=== PATIENT | female | born 1995 | race American Indian/Alaskan Native ===

== ENCOUNTER 2016-10-18 06:47 | Emergency (ER) | payer OTHER ==
[2016-10-18 06:55] VITALS: BP 125/91
[2016-10-18 07:12] LABS: Basophils % (Auto) 1.3 % (0.0-1.8); Eosinophils % (Auto) 11.8 % (0.0-4.3); Mean Corpuscular HGB Conc 30 % (30-34); Platelet Count 324 K/mm3 (140-440); Red Blood Count 5.03 M/mm3 (3.65-5.03); White Blood Count 10.3 K/mm3 (4.5-11.0)
[2016-10-18 07:21] LABS: Hematocrit 31.5 % (30.3-42.9); Hemoglobin 9.4 gm/dl (10.1-14.3); Mean Corpuscular Hemoglobin 19 pg (28-32); Mean Corpuscular Volume 63 fl (79-97); Red Cell Distribution Width 20.7 % (13.2-15.2)
[2016-10-18 07:29] LABS: Alanine Aminotransferase 13 units/L (7-56); Albumin 4.1 g/dL (3.9-5); Albumin/Globulin Ratio 1.2 %; Alkaline Phosphatase 55 units/L (35-129); Anion Gap 18 mmol/L; Bilirubin,Total 0.2 mg/dL (0.1-1.2); Blood Urea Nitrogen 9 mg/dL (7-17); Calcium 8.9 mg/dL (8.4-10.2); Carbon Dioxide 24 mmol/L (22-30); Chloride 98.8 mmol/L (98-107); Glucose 86 mg/dL (65-100); Potassium 3.8 mmol/L (3.6-5.0); Sodium 137 mmol/L (137-145); Total Protein 7.5 g/dL (6.3-8.2)
--- NOTE | 2016-10-20 15:37 | ED Elopement Review ---
ED Pt Elopement review - Results review Lab results: Laboratory Tests 10/18/16 10/18/16 06:59 07:04 WBC 10.3 RBC 5.03 Hgb 9.4 L Hct 31.5 MCV 63 L MCH 19 L MCHC 30 RDW 20.7 H Plt Count 324 Lymph % (Auto) 25.1 [place] % (Auto) 10.9 H Eos % (Auto) 11.8 H Baso % (Auto) 1.3 Lymph # 2.6 [place] # 1.1 H Eos # 1.2 H Baso # 0.1 Seg Neutrophils % 50.9 Seg Neutrophils # 5.3 Sodium 137 Potassium 3.8 Chloride 98.8 Carbon Dioxide 24 Anion Gap 18 BUN 9 Creatinine 0.5 L Estimated GFR > 60 BUN/Creatinine Ratio 18.00 Glucose 86 Calcium 8.9 Total Bilirubin 0.2 AST 22 ALT 13 Alkaline Phosphatase 55 Total Protein 7.5 Albumin 4.1 Albumin/Globulin Ratio 1.2 - Call Back decision Pt Call Back Decision: No action required
== END 2016-10-18 12:45 | disposition left against medical advice (07) ==
LOC: ED 06:47
DX: R10.9 Unspecified abdominal pain (principal); Z53.21 Procedure and treatment not carried out due to patient leaving prior to being seen by health care provider
CPT/HCPCS: 36415; 80053; 85025

== ENCOUNTER 2016-10-23 13:57 | Emergency (ER) | payer SELFPAY ==
[2016-10-23 14:04] VITALS: BP 129/71
[2016-10-23] MEDS ORDERED: DUONEB 0.5 MG-3 MG/3 ML SOLN IH ONE (15:13)
[2016-10-23] MEDS ORDERED: DECADRON IM ONE (15:14)
--- NOTE | 2016-10-23 15:18 | Emergency Department Report ---
Chief Complaint: Adult Asthma Stated Complaint: ASTHMA,SOB Time Seen by Provider: 10/23/16 15:11 - HPI History of Present Illness: 21-year-old female with history of asthma states that her asthma flared up last night. Patient tried albuterol inhaler without relief. Positive for chest tightness and also complaining of right upper flank pain. Denies chest pain, abdominal pain, fever, chills, nausea, vomiting, urinary symptoms. - ROS Review of Systems: Per HPI - Exam Vital Signs: Vital Signs 10/23/16 14:02 Temperature 98.8 F Pulse Rate 97 H Respiratory 18 Rate Blood Pressure 129/71 O2 Sat by Pulse 100 Oximetry Physical Exam: General: 21-year-old female in mild to moderate distress. Well-developed, well- nourished. CV: Regular rate and rhythm. Lungs: Positive for wheezing bilaterally. Abdomen: No tenderness to palpation. Negative for CVA tenderness bilaterally. MSE screening note: Focused history and physical exam performed. Due to findings the following was ordered: ED Disposition for MSE Condition: Stable
--- NOTE | 2016-10-24 10:45 | XRay Report ---
CHEST TWO VIEWS: 10/23/16 13:57:00 CLINICAL: Shortness of breath. COMPARISON: 07/29/16 FINDINGS: Normal heart and pulmonary vasculature. The lungs are mildly hyperexpanded and clear. The bones and soft tissues are normal. IMPRESSION: Mild pulmonary hyperinflation but otherwise normal.
--- NOTE | 2016-10-28 15:44 | ED Elopement Review ---
ED Pt Elopement review - Call Back decision Pt Call Back Decision: No action required
== END 2016-10-23 15:15 | disposition left against medical advice (07) ==
LOC: ED 13:57
DX: R07.89 Other chest pain (principal); R10.11 Right upper quadrant pain; J45.909 Unspecified asthma, uncomplicated; Z53.21 Procedure and treatment not carried out due to patient leaving prior to being seen by health care provider
CPT/HCPCS: 71020; 94640

== ENCOUNTER 2016-11-08 06:30 | Emergency (ER) | payer OTHER ==
[2016-11-08] MEDS ORDERED: DUONEB 0.5 MG-3 MG/3 ML SOLN IH ONE (06:41)
[2016-11-08] MEDS ORDERED: ATROVENT IH ONE (08:38)
[2016-11-08] MEDS ORDERED: PROVENTIL IH ONE (08:38)
--- NOTE | 2016-11-08 10:08 | XRay Report ---
CHEST 2 VIEWS INDICATION: Wheezing, coughing. COMPARISON: 10/23/2016. FINDINGS: PA and lateral chest radiographs demonstrate normal cardiomediastinal silhouette. Clear lungs. Intact bones. CONCLUSION: No acute disease in the chest. Thank you for the opportunity to participate in this patient's care.
[2016-11-08] MEDS ORDERED: DELTASONE PO ONE (10:22)
--- NOTE | 2016-11-08 10:38 | Emergency Department Report ---
ED Asthma HPI - General Chief Complaint: Adult Asthma Stated Complaint: ASTHMA Time Seen by Provider: 11/08/16 10:12 Source: patient Mode of arrival: Ambulatory Limitations: No Limitations - History of Present Illness Initial Comments: 21-year-old female with past medical history of asthma presents to the hospital complains of asthma exacerbation. Wheezing shortness breath or last night. Dry cough reported. Patient was out of her albuterol nebulizers treatments and inhaler. Dyspnea worse with exertion. Patient denies pain, fever, leg edema, calf tenderness, or history of intubations. PMD: None. - Related Data Previous Rx's Medication Instructions Recorded Last Taken Type ALBUTEROL Inhaler [ProAir HFA 2 puff IH QID PRN #1 inhalation 11/08/16 Unknown Rx Inhaler] ALBUTEROL NEB's [Proventil 0.083% 2.5 mg IH TID PRN #1 box 11/08/16 Unknown Rx NEBS] Prednisone [predniSONE 10 mg 10 mg PO .TAPER #1 tab.ds.pk 11/08/16 Unknown Rx (6-Day Pack, 21 Tabs)] Allergies Allergy/AdvReac Type Severity Reaction Status Date / Time No Known Allergies Allergy Verified 08/19/16 22:15 ED Review of Systems ROS: Stated complaint: ASTHMA Other details as noted in HPI Comment: All other systems reviewed and negative Other: Constitutional: No fevers chills Eyes: No eye pain visual changes ENT: No ear pain or throat pain Neck: Denies pain Respiratory: As per HPI Cardiovascular: Denies chest pain, palpitations, syncope GI: Denies abdominal pain, nausea, vomiting, diarrhea : Denies dysuria Musculoskeletal: Denies back pain, joint swelling Skin: Denies rash, lesions, erythema Neurologic: Denies headache, numbness, weakness Psychiatric: Denies suicidal ideation, hallucinations ED Past Medical Hx - Past Medical History Previous Medical History?: Yes Hx Hypertension: No Hx Heart Attack/AMI: No Hx Congestive Heart Failure: No Hx Diabetes: No Hx Deep Vein Thrombosis: No Hx Renal Disease: No Hx Sickle Cell Disease: No Hx Seizures: No Hx Asthma: Yes Hx COPD: No Hx HIV: No Additional medical history: Vaginal delivery 12-06-2015 - Surgical History Past Surgical History?: No - Social History Smoking Status: Current Some Day Smoker - Medications Home Medications: Home Medications Medication Instructions Recorded Confirmed Last Taken Type ALBUTEROL Inhaler [ProAir HFA 2 puff IH QID PRN #1 inhalation 11/08/16 Unknown Rx Inhaler] ALBUTEROL NEB's [Proventil 0.083% 2.5 mg IH TID PRN #1 box 11/08/16 Unknown Rx NEBS] Prednisone [predniSONE 10 mg 10 mg PO .TAPER #1 tab.ds.pk 11/08/16 Unknown Rx (6-Day Pack, 21 Tabs)] ED Physical Exam - General Limitations: No Limitations - Other Other exam information: General: No limitations, patient is alert in no acute distress Head exam: Atraumatic, normocephalic Eyes exam: Normal appearance, pupils equal reactive to light, extraocular movements intact ENT: Moist mucous membrane, normal oropharynx Neck exam: Normal inspection, full range of motion, no meningismus nontender Respiratory exam: Clear to auscultation bilateral, no wheezes, rales, crackles Cardiovascular: Normal rate and rhythm, normal heart sounds Abdomen: Soft, nondistended, and nontender, with normal bowel sounds, no rebound, or guarding Extremity: Full range of motion normal inspection no deformity Back: Normal Inspection, full range of motion, no tenderness Neurologic: Alert, oriented x3, cranial nerves intact, no motor or sensory deficit Psychiatric: normal affect, normal mood Skin: Warm, dry, intact ED Course Vital Signs 11/08/16 11/08/16 11/08/16 06:37 07:07 07:17 Temperature 98.2 F Pulse Rate 100 H Pulse Rate [ 100 H 102 H Bilateral Upper Lobe] Respiratory 28 H Rate Respiratory 20 18 Rate [Bilateral Upper Lobe] Blood Pressure 106/77 O2 Sat by Pulse 98 Oximetry 11/08/16 11/08/16 11/08/16 08:44 08:57 09:13 Temperature Pulse Rate Pulse Rate [ 102 H 100 H Bilateral Upper Lobe] Respiratory 20 Rate Respiratory 18 18 Rate [Bilateral Upper Lobe] Blood Pressure O2 Sat by Pulse Oximetry - Reevaluation(s) Reevaluation #1: 11/08/16 10:35 Patient received nebulized treatments prior to my evaluation with improvement in symptoms. ED Medical Decision Making - Radiology Data Radiology results: report reviewed (chest x-ray: No acute finding) - Medical Decision Making Plan discharge patient home with for acute asthma exacerbation and refill of bronchial dilators - Differential Diagnosis bronchitis, asthma, pneumonia Critical Care Time: No Critical care attestation.: If time is entered above; I have spent that time in minutes in the direct care of this critically ill patient, excluding procedure time. ED Disposition Clinical Impression: Asthma exacerbation Disposition: DISCHARGED TO HOME OR SELFCARE Is pt being admited?: No Does the pt Need Aspirin: No Condition: Stable Instructions: Asthma (ED) Additional Instructions: Take the medication as prescribed, return if symptoms worsen. Prescriptions: ALBUTEROL Inhaler [ProAir HFA Inhaler] 2 puff IH QID PRN #1 inhalation PRN Reason: Wheezing ALBUTEROL NEB's [Proventil 0.083% NEBS] 2.5 mg IH TID PRN #1 box PRN Reason: Wheezing Prednisone [predniSONE 10 mg (6-Day Pack, 21 Tabs)] 10 mg PO .TAPER #1 tab.ds.pk Referrals: [facility] [Provider Group] - 3-5 Days Time of Disposition: 10:39
[2016-11-08 11:00] VITALS: BP 133/73
== END 2016-11-08 11:00 | disposition home or self-care (01) ==
LOC: ED 06:30
DX: J45.901 Unspecified asthma with (acute) exacerbation (principal); Z72.0 Tobacco use
CPT/HCPCS: 71020; 94640; 99283; J7512

== ENCOUNTER 2016-11-13 22:06 | Emergency (ER) | payer OTHER ==
[2016-11-13 23:08] VITALS: BP 109/71
[2016-11-13] MEDS ORDERED: TYLENOL ONE (23:16)
[2016-11-13] MEDS ORDERED: TYLENOL PO ONE (23:18)
[2016-11-14] LABS: Basophils % (Auto) 0.9 % (0.0-1.8); Eosinophils % (Auto) 0.1 % (0.0-4.3); Mean Corpuscular HGB Conc 31 % (30-34); Platelet Count 361 K/mm3 (140-440); Red Blood Count 5.93 M/mm3 (3.65-5.03); White Blood Count 10.6 K/mm3 (4.5-11.0)
[2016-11-14 00:02] LABS: Hematocrit 36.1 % (30.3-42.9); Mean Corpuscular Hemoglobin 19 pg (28-32); Mean Corpuscular Volume 61 fl (79-97)
[2016-11-14 00:23] LABS: Alanine Aminotransferase 24 units/L (7-56); Albumin 4.2 g/dL (3.9-5); Albumin/Globulin Ratio 1.3 %; Alkaline Phosphatase 67 units/L (35-129); Anion Gap 20 mmol/L; Bilirubin,Total 0.3 mg/dL (0.1-1.2); Blood Urea Nitrogen 7 mg/dL (7-17); Calcium 8.7 mg/dL (8.4-10.2); Carbon Dioxide 27 mmol/L (22-30); Chloride 92.9 mmol/L (98-107); Glucose 111 mg/dL (65-100); Potassium 3.4 mmol/L (3.6-5.0); Sodium 136 mmol/L (137-145); Total Protein 7.5 g/dL (6.3-8.2)
--- NOTE | 2016-11-14 03:31 | Emergency Department Report ---
HPI - General Chief Complaint: Fever Time Seen by Provider: 11/14/16 02:34 - HPI HPI: This is a 21-year-old Af[place] female presents emergency Department with complaint of a one-day history of a subjective fever, nausea with 1 episode of vomiting, productive cough, and some body aches. Patient tried some Tylenol Cold and flu for symptoms that any relief. She has a past medical history of asthma. She does not have a primary care doctor. No recent travel. Her 11- month-old son is currently here with similar symptoms. ED Past Medical Hx - Past Medical History Previous Medical History?: Yes Hx Hypertension: No Hx Heart Attack/AMI: No Hx Congestive Heart Failure: No Hx Diabetes: No Hx Deep Vein Thrombosis: No Hx Renal Disease: No Hx Sickle Cell Disease: No Hx Seizures: No Hx Asthma: Yes Hx COPD: No Hx HIV: No Additional medical history: Vaginal delivery 12-06-2015 - Surgical History Past Surgical History?: No - Social History Smoking Status: Never Smoker - Medications Home Medications: Home Medications Medication Instructions Recorded Confirmed Last Taken Type ALBUTEROL Inhaler [ProAir HFA 2 puff IH QID PRN #1 inhalation 11/08/16 Unknown Rx Inhaler] ALBUTEROL NEB's [Proventil 0.083% 2.5 mg IH TID PRN #1 box 11/08/16 Unknown Rx NEBS] Prednisone [predniSONE 10 mg 10 mg PO .TAPER #1 tab.ds.pk 11/08/16 Unknown Rx (6-Day Pack, 21 Tabs)] ED Review of Systems ROS: Stated complaint: FEVER Other details as noted in HPI Comment: All other systems reviewed and negative Constitutional: chills, fever Eyes: denies: eye pain, eye discharge, vision change ENT: denies: ear pain, throat pain Respiratory: cough. denies: shortness of breath Cardiovascular: denies: chest pain, palpitations Gastrointestinal: nausea, vomiting Genitourinary: denies: urgency, dysuria, discharge Musculoskeletal: myalgia. denies: joint swelling Skin: denies: rash, lesions Neurological: denies: headache, weakness, paresthesias Physical Exam - Physical Exam Vital Signs: Vital Signs 11/13/16 11/14/16 23:06 02:04 Temperature 99.1 F 98.1 F Pulse Rate 134 H 60 Respiratory 20 Rate Blood Pressure 109/71 O2 Sat by Pulse 95 Oximetry Physical Exam: GENERAL: The patient is well-developed well-nourished. HEENT: Normocephalic. Atraumatic. Extraocular motions are intact. Patient has moist mucous membranes. Pupils equal reactive to light bilaterally. Oropharynx is clear without tonsillar hypertrophy, erythema or exudates. NECK: Supple. Trachea is midline. CHEST/LUNGS: Clear to auscultation. There is no respiratory distress noted. HEART/CARDIOVASCULAR: Regular. There is no tachycardia. There is no gallop rub or murmur. ABDOMEN: Abdomen is soft, nontender. Patient has normal bowel sounds. There is no abdominal distention. SKIN: There is no rash. There is no edema. There is no diaphoresis. NEURO: The patient is awake, alert, and oriented. The patient is cooperative. The patient has no focal neurologic deficits. The patient has normal speech. MUSCULOSKELETAL: There is no tenderness or deformity. There is no limitation range of motion. There is no evidence of acute injury. ED Course Vital Signs 11/13/16 11/14/16 23:06 02:04 Temperature 99.1 F 98.1 F Pulse Rate 134 H 60 Respiratory 20 Rate Blood Pressure 109/71 O2 Sat by Pulse 95 Oximetry ED Medical Decision Making - Lab Data Result diagrams: 11/13/16 23:41 11/13/16 23:41 - Radiology Data Radiology results: image reviewed interpreted by me: Chest x-ray did not show any acute process. Heart is normal shape and size. No effusions. No pneumothorax. No signs of pneumonia seen. - Medical Decision Making This is a 21-year-old female presents to the emergency department with a one- day history of subjective fever, cough, nausea with one episode of vomiting and some body aches. Patient did present with tachycardia but no fever but she had taken some ibuprofen prior to presentation. Patient had labs that did not show any signs of leukocytosis, electrolyte abnormalities, renal insufficiency or glucose abnormalities. A chest x-ray was done to look for pneumonia that did not show any pneumonia, CHF or pneumothorax. On physical exam the patient does not have an oropharynx that appears consistent with strep pharyngitis and the patient does not complain of any sore throat. This all appears most consistent with a viral syndrome. Unfortunately we are unable to check anyone for influenza at this time. However the patient had resolution of her tachycardia and some improvement of her symptoms with one dose of Tylenol. She was given instructions on how to treat fever and body aches with Tylenol and ibuprofen and she was given multiple referrals for primary care. She is encouraged to return to the emergency department with any worsening of her symptoms or any acute distress. - Differential Diagnosis influenza, URI, pneumonia, strep pharyngitis Critical Care Time: No Critical care attestation.: If time is entered above; I have spent that time in minutes in the direct care of this critically ill patient, excluding procedure time. ED Disposition Clinical Impression: Viral syndrome, Cough Nausea and vomiting Qualifiers: Vomiting type: unspecified Vomiting Intractability: non-intractable Qualified Code(s): R11.2 - Nausea with vomiting, unspecified Disposition: DISCHARGED TO HOME OR SELFCARE Is pt being admited?: No Condition: Stable Instructions: Upper Respiratory Infection (ED), Acute Nausea and Vomiting (ED) , Viral Syndrome (ED) Additional Instructions: Please follow-up with a primary care doctor in the next few days. Return to the emergency department with any worsening of your symptoms or any acute distress. You can use Tylenol every 4 hours and ibuprofen every 6 hours, using weight-based dosing, as needed for fever or discomfort. Referrals: PRIMARY MD RADHA [Primary Care Provider] - 3-5 Days DAYDAY MEADOWS MD [Staff Physician] - 3-5 Days [facility] [Outside] - 3-5 Days Time of Disposition: 03:31
--- NOTE | 2016-11-14 09:10 | XRay Report ---
CHEST 2 VIEWS: INDICATION: Cough. COMPARISON: 11/08/2016 FINDINGS: PA and lateral chest radiographs demonstrate subtle 2.5 cm right ipiga-qw-fty lung zone infiltrate as also subtle bibasilar infiltrates/increased lung markings. Subtle bronchiectasis not entirely excluded in this setting. Subtle nodular infiltrates in the left orqhu-we-mvy lung zone individually measuring approximately 0.5 cm, and in aggregate approximately 3 cm, also suspected. No other dense focal consolidation, pleural effusions or CHF. Normal cardiomediastinal silhouette. Slight thoracic levocurvature, possibly positional versus scoliosis. CONCLUSION: Subtle bilateral pneumonias suspected, as described. Please also correlate clinically and further with chest CT, if warranted. Thank you for the opportunity to participate in this patient's care.
== END 2016-11-14 04:16 | disposition home or self-care (01) ==
LOC: ED 22:06
DX: B34.9 Viral infection, unspecified (principal); R05 Cough; R11.2 Nausea with vomiting, unspecified; J45.909 Unspecified asthma, uncomplicated
CPT/HCPCS: 36415; 71020; 80053; 81025; 85025

== ENCOUNTER 2016-12-19 10:27 | Emergency (ER) | payer SELFPAY ==
[2016-12-19 10:52] VITALS: BP 125/65
[2016-12-19] MEDS ORDERED: DELTASONE PO ONE (11:50)
[2016-12-19] MEDS ORDERED: DUONEB 0.5 MG-3 MG/3 ML SOLN IH ONE (12:46)
--- NOTE | 2016-12-19 13:52 | Emergency Department Report ---
Entered by LIZANDRO CHAMORRO, acting as scribe for HERMINIA ARMSTRONG PA. ED Asthma HPI - General Chief Complaint: Adult Asthma Stated Complaint: ASTHMA Time Seen by Provider: 12/19/16 11:41 Source: patient Mode of arrival: Ambulatory Limitations: No Limitations - History of Present Illness Initial Comments: 21 y/o female with PMHx asthma presents to the ED c/o of asthma exacerbation today. She reports associated dry cough, wheezing, and shortness of breath with walking. She notes she ran out of albuterol for nebulizer but did use albuterol inhaler this morning with no improvement. Denies fever, chills, abdominal pain , nausea, vomiting, chest pain. NKDA. [place] Complaint: "asthma attack", shortness of breath (while walking), wheezing Onset/Timin -: days(s) Severity: moderate Context: ran out of meds (albuterol for nebulizer. Used albuterol inhaler this morning with no improvement.) Associated Symptoms: dry cough. denies: productive cough, fever, chest pain, other (abdominal pain, nausea, vomiting) Treatments Prior to Arrival: inhaled bronchodilator (albuterol inhaler) - Related Data Current Asthma Therapy: inhaled bronchodilator (Albuterol), inhaled steroid ( uses nebulizer), recent oral steroid (Prednisone) Previous Rx's Medication Instructions Recorded Last Taken Type ALBUTEROL Inhaler [ProAir HFA 2 puff IH QID PRN #1 inhalation 12/19/16 Unknown Rx Inhaler] ALBUTEROL NEB's [Proventil 0.083% 2.5 mg IH TID PRN #1 box 12/19/16 Unknown Rx NEBS] Prednisone [predniSONE 10 mg 10 mg PO .TAPER #1 tab.ds.pk 12/19/16 Unknown Rx (6-Day Pack, 21 Tabs)] Allergies Allergy/AdvReac Type Severity Reaction Status Date / Time No Known Allergies Allergy Verified 08/19/16 22:15 ED Review of Systems Comment: All other systems reviewed and negative Constitutional: denies: chills, fever Respiratory: cough (dry cough), SOB with exertion (SOB when walking), wheezing Cardiovascular: denies: chest pain Gastrointestinal: denies: abdominal pain, nausea, vomiting ED Past Medical Hx - Past Medical History Hx Hypertension: No Hx Heart Attack/AMI: No Hx Congestive Heart Failure: No Hx Diabetes: No Hx Deep Vein Thrombosis: No Hx Renal Disease: No Hx Sickle Cell Disease: No Hx Seizures: No Hx Asthma: Yes Hx COPD: No Hx HIV: No Additional medical history: Vaginal delivery 12-06-2015 - Surgical History Past Surgical History?: No - Social History Smoking Status: Never Smoker Substance Use Type: None - Medications Home Medications: Home Medications Medication Instructions Recorded Confirmed Last Taken Type ALBUTEROL Inhaler [ProAir HFA 2 puff IH QID PRN #1 inhalation 12/19/16 Unknown Rx Inhaler] ALBUTEROL NEB's [Proventil 0.083% 2.5 mg IH TID PRN #1 box 12/19/16 Unknown Rx NEBS] Prednisone [predniSONE 10 mg 10 mg PO .TAPER #1 tab.ds.pk 12/19/16 Unknown Rx (6-Day Pack, 21 Tabs)] ED Physical Exam - General Limitations: No Limitations - Other Other exam information: GENERAL: Patient is alert and oriented x 3. No apparent distress, normal gait, atraumatic. HEAD: Head is normocephalic and atraumatic. EYES: Extraocular movements are intact. Pupils are equal, round, and reactive to light and accommodation. EARS: Symmetrical, atraumatic, non tender, ear canal clear with moderate cerumen , tympanic membrane non inflamed. Gross auditory nml bilaterally. NOSE: Nose symmetrical, nontender. Nares appeared normal. MOUTH:Mouth is well hydrated and without lesions. Mucous membranes are moist. Uvula midline. Tongue not elevated. Posterior pharynx clear, no exudate or lesions. NECK: Supple. Non edematous, no carotid bruits. No lymphadenopathy or thyromegaly. LUNGS: Diffuse anterior and posterior wheezing bilaterally. Normal air flow. No respiratory distress. HEART: Regular rate and rhythm with normal S1/S2 present. No murmurs, rubs, or gallops. ABDOMEN: Soft, nondistended. Nontender to palpation on all quadrants. EXTREMITIES/MUSCULOSKELETAL: Full ROM bilaterally. SKIN: Warm and dry. No lesions, ulceration or induration present. PSYCHIATRIC: Mood is congruent with affect. ED Course Vital Signs 12/19/16 10:46 Temperature 98.6 F Pulse Rate 103 H Respiratory 24 Rate Blood Pressure 125/65 O2 Sat by Pulse 99 Oximetry ED Medical Decision Making - Medical Decision Making 21-year-old female presents with asthma exacerbation. ED course: Patient received a dose of DuoNeb respiratory treatment and prednisone 60 mg. Patient is in no respiratory distress. Vital signs are stable. Bladder sounds present discharge pulse reduced. Patient is sats 99%. Discussed the patient to take medication as needed for asthma. Discussed medication refill of DuoNeb inhaler and nebulizer. Discussed to follow up with primary care doctor. She verbally says she understands and will follow-up. ED Disposition Clinical Impression: Cough, Medication refill, History of asthma, Mild asthma exacerbation Disposition: DISCHARGED TO HOME OR SELFCARE Is pt being admited?: No Does the pt Need Aspirin: No Condition: Stable Instructions: Asthma (ED), Exercise-Induced Asthma (ED) Prescriptions: ALBUTEROL Inhaler [ProAir HFA Inhaler] 2 puff IH QID PRN #1 inhalation PRN Reason: Wheezing ALBUTEROL NEB's [Proventil 0.083% NEBS] 2.5 mg IH TID PRN #1 box PRN Reason: Wheezing Prednisone [predniSONE 10 mg (6-Day Pack, 21 Tabs)] 10 mg PO .TAPER #1 tab.ds.pk Referrals: PRIMARY CARE, [Primary Care Provider] - 3-5 Days MANA GARNER MD [Referring] - 3-5 Days BRYSON HADLEY MD [Referring] - 3-5 Days [facility] [Outside] - 3-5 Days [facility] [Outside] - 3-5 Days [facility]Outside[facility] - 3-5 Days Forms: Work/School Release Form(ED) Time of Disposition: 12:40 This documentation as recorded by the PEDRO PABLO aleman MELISSA,accurately reflects the service I personally performed and the decisions made by ,HERMINIA ARMSTRONG PA.
[2016-12-19] MEDS ORDERED: DELTASONE ONE (18:41)
== END 2016-12-19 13:16 | disposition home or self-care (01) ==
LOC: ED 10:27
DX: J45.901 Unspecified asthma with (acute) exacerbation (principal); Z76.0 Encounter for issue of repeat prescription
CPT/HCPCS: 94640; 99282; J7512

== ENCOUNTER 2017-01-22 19:48 | Emergency (ER) | payer SELFPAY ==
[2017-01-22] MEDS: PROVENTIL IH ONE (20:22)
[2017-01-22] MEDS: DUONEB 0.5 MG-3 MG/3 ML SOLN IH ONE (21:51)
[2017-01-22] MEDS: MOTRIN PO ONE (21:59)
--- NOTE | 2017-01-22 22:06 | Emergency Department Report ---
HPI - General Chief Complaint: Dyspnea/Respdistress Time Seen by Provider: 01/22/17 21:10 - HPI HPI: 21 year-old female presents to ED complaining of some modest as a patient that started this morning. Patient states got worse throughout the day. Patient states she is out of her nebulizer medication at home so she was unable to use her nebulizer. Patient states the inhaler did not work. Patient states minimal chest tightness. Patient admits some mild intermittent dry cough. Patient denies fevers/chills/nausea/vomiting / chest pain or other problems. ED Past Medical Hx - Past Medical History Previous Medical History?: Yes Hx Hypertension: No Hx Heart Attack/AMI: No Hx Congestive Heart Failure: No Hx Diabetes: No Hx Deep Vein Thrombosis: No Hx Renal Disease: No Hx Sickle Cell Disease: No Hx Seizures: No Hx Asthma: Yes Hx COPD: No Hx HIV: No Additional medical history: Vaginal delivery 12-06-2015 - Surgical History Past Surgical History?: No - Social History Smoking Status: Never Smoker Substance Use Type: None - Medications Home Medications: Home Medications Medication Instructions Recorded Confirmed Last Taken Type ALBUTEROL Inhaler [ProAir HFA 2 puff IH QID PRN #1 inhalation 12/19/16 Unknown Rx Inhaler] ALBUTEROL NEB's [Proventil 0.083% 2.5 mg IH TID PRN #1 box 01/22/17 Unknown Rx NEBS] Acetamin/Codeine 120-12Mg/5 ml 5 ml PO TID PRN #60 ml 01/22/17 Unknown Rx [Tylenol/Codeine] Prednisone [predniSONE 10 mg 10 mg PO .TAPER #1 tab.ds.pk 01/22/17 Unknown Rx (6-Day Pack, 21 Tabs)] ED Review of Systems ROS: Stated complaint: ASTHMA Other details as noted in HPI Constitutional: denies: chills, fever Eyes: denies: eye pain, eye discharge, vision change ENT: denies: ear pain, throat pain, dental pain, hearing loss Respiratory: cough (dry). denies: shortness of breath, wheezing Cardiovascular: denies: chest pain, palpitations Endocrine: no symptoms reported Gastrointestinal: denies: abdominal pain, nausea, diarrhea, constipation Genitourinary: denies: urgency, dysuria, frequency, hematuria, discharge Musculoskeletal: denies: back pain, joint swelling, arthralgia Skin: denies: rash, lesions Neurological: denies: headache, weakness, paresthesias Psychiatric: denies: anxiety, depression Hematological/Lymphatic: denies: easy bleeding, easy bruising Physical Exam - Physical Exam Vital Signs: Vital Signs 01/22/17 01/22/17 01/22/17 19:52 20:22 20:29 Temperature 98.3 F Pulse Rate 24 L Pulse Rate [ 63 66 Posterior Bilateral] Respiratory 18 18 Rate [Posterior Bilateral] Blood Pressure 139/79 O2 Sat by Pulse 100 Oximetry Physical Exam: GENERAL: Alert and oriented x3, no apparent distress, Normal Gait, atraumatic. HEAD: Head is normocephalic and a-traumatic. EYES: Extra ocular muscles are intact. Pupils are equal, round, and reactive to light and accommodation. EARS: symetrical, atraumatic, non tender, ear canal clear and moderate cerumen, tympanic membrance non inflamed. gross auditory nml bilaterally. NOSE: Nose symetrical, Nontender,Nares appeared normal. MOUTH:Mouth is well hydrated and without lesions. Tonsils nonerythematous or swollen, Uvula midline, Tongue not elevated. Mucous membranes are moist. Posterior pharynx clear, no exudate or lesions. Patent airways. NECK: Supple. Non edematous, No carotid bruits. No lymphadenopathy or thyromegaly. No C-spine tenderness LUNGS: Symetrical with respiration, No wheezing, no rales or crackles, CTAB. HEART: S1, S2 present, regular rate and rhythm without murmur, no rubs, no gallops. SKIN: Warm and dry, No lesions, No ulceration or induration present. ED Course Vital Signs 01/22/17 01/22/17 01/22/17 19:52 20:22 20:29 Temperature 98.3 F Pulse Rate 24 L Pulse Rate [ 63 66 Posterior Bilateral] Respiratory 18 18 Rate [Posterior Bilateral] Blood Pressure 139/79 O2 Sat by Pulse 100 Oximetry ED Medical Decision Making - Medical Decision Making 21-year-old female presents with asthma exacerbation. ED course: Patient received Solu-Medrol. 2 respiratory treatments. And Motrin for pain. Lung exam assessment after breathing treatment patient is to his mild wheezing at the lower lungs. Vital signs are normal patient in sinus at 100% oxygen on room air. Discussed the patient to follow up with primary care physician in 3-5 days Discussed the patient to take medication as prescribed. Discussed with patient to take prednisone as prescribed for the next week. Critical care attestation.: If time is entered above; I have spent that time in minutes in the direct care of this critically ill patient, excluding procedure time. ED Disposition Clinical Impression: Asthma exacerbation Qualifiers: Asthma severity: mild intermittent Qualified Code(s): J45.21 - Mild intermittent asthma with (acute) exacerbation Disposition: DISCHARGED TO HOME OR SELFCARE Is pt being admited?: No Does the pt Need Aspirin: No Condition: Stable Instructions: Asthma (ED), Bronchospasm (ED) Additional Instructions: Taken medication as prescribed. Follow-up with primary care physician. Prescriptions: Acetamin/Codeine 120-12Mg/5 ml [Tylenol/Codeine] 5 ml PO TID PRN #60 ml PRN Reason: Pain ALBUTEROL NEB's [Proventil 0.083% NEBS] 2.5 mg IH TID PRN #1 box PRN Reason: Wheezing Prednisone [predniSONE 10 mg (6-Day Pack, 21 Tabs)] 10 mg PO .TAPER #1 tab.ds.pk Referrals: PRIMARY CARE, [Primary Care Provider] - 3-5 Days [facility] [Outside] - 3-5 Days [facility] [Outside] - 3-5 Days Forms: Work/School Release Form(ED) Time of Disposition: 22:15
[2017-01-22 22:41] VITALS: BP 126/71
== END 2017-01-22 22:41 | disposition home or self-care (01) ==
LOC: ED 19:48
DX: J45.21 Mild intermittent asthma with (acute) exacerbation (principal)
CPT/HCPCS: 81025; 94640; 96372; 99283; J2930

== ENCOUNTER 2017-02-22 18:54 | Emergency (ER) | payer SELFPAY ==
[2017-02-22] MEDS ORDERED: DUONEB 0.5 MG-3 MG/3 ML SOLN IH ONE ×4 (19:02→22:04)
[2017-02-22] MEDS ORDERED: PROVENTIL IH ONE ×2 (19:11→19:17)
[2017-02-22] MEDS ORDERED: DELTASONE PO ONE (20:28)
--- NOTE | 2017-02-22 21:49 | Emergency Department Report ---
ED Asthma HPI - General Chief Complaint: Adult Asthma Stated Complaint: ASTHMA Time Seen by Provider: 02/22/17 20:15 Source: patient Mode of arrival: Ambulatory Limitations: No Limitations - History of Present Illness Initial Comments: 21-year-old female past medical history asthma presents with complaint of sensation of wheezing since early this afternoon. Patient states she has been intermittently wheezing throughout the week. Patient speaking in full sentences visible respiratory retractions and audible wheezing or stridor on clinical interview. Patient states that she was hospitalized for 2 days for asthma last month denies any history of intubations hospitalized for asthma as a child several times. No visible facial cyanosis, patient states that she ran out of her albuterol inhaler MD Complaint: "asthma attack", wheezing Onset/Timin -: week(s) Asthma History: childhood onset, history of prior ED visit Severity: moderate Context: ran out of meds - Related Data Current Asthma Therapy: inhaled bronchodilator Previous Rx's Medication Instructions Recorded Last Taken Type Acetamin/Codeine 120-12Mg/5 ml 5 ml PO TID PRN #60 ml 01/22/17 Unknown Rx [Tylenol/Codeine] Prednisone [predniSONE 10 mg 10 mg PO .TAPER #1 tab.ds.pk 01/22/17 Unknown Rx (6-Day Pack, 21 Tabs)] ALBUTEROL Inhaler [ProAir HFA 2 puff IH QID PRN #1 inhalation 02/22/17 Unknown Rx Inhaler] ALBUTEROL NEB's [Proventil 0.083% 2.5 mg IH TID PRN #1 box 02/22/17 Unknown Rx NEBS] predniSONE [Deltasone] 40 mg PO QDAY #10 tablet 02/22/17 Unknown Rx Allergies Allergy/AdvReac Type Severity Reaction Status Date / Time No Known Allergies Allergy Verified 08/19/16 22:15 ED Review of Systems ROS: Stated complaint: ASTHMA Other details as noted in HPI Constitutional: denies: chills, fever Eyes: denies: eye pain, eye discharge, vision change ENT: denies: ear pain, throat pain Respiratory: wheezing. denies: cough, shortness of breath Cardiovascular: denies: chest pain, palpitations Endocrine: no symptoms reported Gastrointestinal: denies: abdominal pain, nausea, diarrhea Genitourinary: denies: urgency, dysuria, discharge Musculoskeletal: denies: back pain, joint swelling, arthralgia Skin: denies: rash, lesions Neurological: denies: headache, weakness, paresthesias Psychiatric: denies: anxiety, depression Hematological/Lymphatic: denies: easy bleeding, easy bruising ED Past Medical Hx - Past Medical History Hx Hypertension: No Hx Heart Attack/AMI: No Hx Congestive Heart Failure: No Hx Diabetes: No Hx Deep Vein Thrombosis: No Hx Renal Disease: No Hx Sickle Cell Disease: No Hx Seizures: No Hx Asthma: Yes Hx COPD: No Hx HIV: No Additional medical history: Vaginal delivery 12-06-2015 - Social History Smoking Status: Never Smoker Substance Use Type: None - Medications Home Medications: Home Medications Medication Instructions Recorded Confirmed Last Taken Type Acetamin/Codeine 120-12Mg/5 ml 5 ml PO TID PRN #60 ml 01/22/17 Unknown Rx [Tylenol/Codeine] Prednisone [predniSONE 10 mg 10 mg PO .TAPER #1 tab.ds.pk 01/22/17 Unknown Rx (6-Day Pack, 21 Tabs)] ALBUTEROL Inhaler [ProAir HFA 2 puff IH QID PRN #1 inhalation 02/22/17 Unknown Rx Inhaler] ALBUTEROL NEB's [Proventil 0.083% 2.5 mg IH TID PRN #1 box 02/22/17 Unknown Rx NEBS] predniSONE [Deltasone] 40 mg PO QDAY #10 tablet 02/22/17 Unknown Rx ED Physical Exam - General Limitations: No Limitations General appearance: alert, in no apparent distress - Head Head exam: Present: atraumatic, normocephalic - Eye Eye exam: Present: normal appearance, PERRL, EOMI - ENT ENT exam: Present: mucous membranes moist - Neck Neck exam: Present: normal inspection, full ROM - Respiratory Respiratory exam: Present: respiratory distress, wheezes - Cardiovascular Cardiovascular Exam: Present: regular rate, normal rhythm. Absent: systolic murmur, diastolic murmur, rubs, gallop - GI/Abdominal GI/Abdominal exam: Present: soft, normal bowel sounds - Extremities Exam Extremities exam: Present: normal inspection - Back Exam Back exam: Present: normal inspection - Neurological Exam Neurological exam: Present: alert, oriented X3 - Psychiatric Psychiatric exam: Present: normal affect, normal mood - Skin Skin exam: Present: warm, dry, intact, normal color. Absent: rash ED Course Vital Signs 02/22/17 02/22/17 02/22/17 18:55 19:05 19:09 Temperature 98.2 F Pulse Rate 103 H Pulse Rate [ 107 H 107 H Posterior Throughout] Respiratory 26 H Rate Respiratory 18 18 Rate [Posterior Throughout] Blood Pressure 136/78 O2 Sat by Pulse 97 Oximetry 02/22/17 02/22/17 02/22/17 19:35 20:38 20:50 Temperature Pulse Rate Pulse Rate [ 109 H 104 H 106 H Posterior Throughout] Respiratory Rate Respiratory 18 16 16 Rate [Posterior Throughout] Blood Pressure O2 Sat by Pulse Oximetry ED Medical Decision Making - Medical Decision Making A/P: Asthma exacerbation 1-patient felt significant relief with nebulizer treatment, wheezing has significantly diminished patient is ambulatory with O2 sat 100% on room air 2-albuterol inhaler refill, nebulizer fluid refill prednisone 5 day course 3-I referred patient to primary care 4-I advised patient to return to the ED if she experiences persistent wheezing despite use of albuterol inhaler Critical care attestation.: If time is entered above; I have spent that time in minutes in the direct care of this critically ill patient, excluding procedure time. ED Disposition Clinical Impression: Asthma exacerbation Disposition: DISCHARGED TO HOME OR SELFCARE Is pt being admited?: No Does the pt Need Aspirin: No Condition: Stable Instructions: Asthma (ED), Reactive Airways Disease (ED), Moderate and Severe Persistent Asthma (ED) Prescriptions: ALBUTEROL Inhaler [ProAir HFA Inhaler] 2 puff IH QID PRN #1 inhalation PRN Reason: Wheezing ALBUTEROL NEB's [Proventil 0.083% NEBS] 2.5 mg IH TID PRN #1 box PRN Reason: Wheezing predniSONE [Deltasone] 40 mg PO QDAY #10 tablet Referrals: BRODIE DEWITT MD [Staff Physician] - 3-5 Days [facility] [Outside] - 3-5 Days Forms: Work/School Release Form(ED) Time of Disposition: 22:10
[2017-02-22 22:52] VITALS: BP 122/75
== END 2017-02-22 22:25 | disposition home or self-care (01) ==
LOC: ED 18:54
DX: J45.901 Unspecified asthma with (acute) exacerbation (principal)
CPT/HCPCS: 94640; 99283; J7512

== ENCOUNTER 2017-04-16 17:17 | Emergency (ER) | payer SELFPAY ==
[2017-04-16] MEDS ORDERED: ATROVENT IH ONE (17:41)
[2017-04-16] MEDS ORDERED: PROVENTIL IH ONE ×2 (17:41→22:21)
--- NOTE | 2017-04-16 17:46 | Emergency Department Report ---
Chief Complaint: Adult Asthma Stated Complaint: ASTHMA ATTACK Time Seen by Provider: 04/16/17 17:38 - HPI History of Present Illness: PT has a hx of asthma. PT reports cough x a few days. PT states she woke up this morning and she was wheezing. no improvement with albuterol neb - ROS Review of Systems: + cough + sob + wheezing - st - congestion - Exam Vital Signs: Vital Signs 04/16/17 17:21 Temperature 97.5 F L Pulse Rate 83 Blood Pressure 124/65 O2 Sat by Pulse 99 Oximetry Physical Exam: PT in tripod postion + insp and exp wheezing lenard, ant and post MSE screening note: Focused history and physical exam performed. Due to findings the following was ordered: meds ED Disposition for MSE Condition: Stable
--- NOTE | 2017-04-16 22:23 | Emergency Department Report ---
HPI - General Chief Complaint: Adult Asthma Time Seen by Provider: 04/16/17 17:38 - HPI HPI: This is a 21-year-old Afro[place] female presents to the emergency department from home with complaint of some shortness of breath, wheezing and a dry cough that she believes is an asthma exacerbation. The patient was using her nebulized treatment at home about every 4 hours without much relief so she came in to be seen. She says she has had admissions for asthma in the past but never required any intubation. She denies any chest pain, fever, nausea, vomiting or diaphoresis. She denies tobacco abuse. He does not have a primary care physician. No recent travel or sick contacts at home. ED Past Medical Hx - Past Medical History Previous Medical History?: Yes Hx Hypertension: No Hx Heart Attack/AMI: No Hx Congestive Heart Failure: No Hx Diabetes: No Hx Deep Vein Thrombosis: No Hx Renal Disease: No Hx Sickle Cell Disease: No Hx Seizures: No Hx Asthma: Yes Hx COPD: No Hx HIV: No Additional medical history: Vaginal delivery 12-06-2015 - Surgical History Past Surgical History?: No - Social History Smoking Status: Never Smoker Substance Use Type: None - Medications Home Medications: Home Medications Medication Instructions Recorded Confirmed Last Taken Type Acetamin/Codeine 120-12Mg/5 ml 5 ml PO TID PRN #60 ml 01/22/17 Unknown Rx [Tylenol/Codeine] Prednisone [predniSONE 10 mg 10 mg PO .TAPER #1 tab.ds.pk 01/22/17 Unknown Rx (6-Day Pack, 21 Tabs)] ALBUTEROL NEB's [Proventil 0.083% 2.5 mg IH TID PRN #1 box 02/22/17 Unknown Rx NEBS] ALBUTEROL Inhaler [ProAir HFA 2 puff IH QID PRN #1 inhalation 04/17/17 Unknown Rx Inhaler] predniSONE [Deltasone] 40 mg PO QDAY #5 tablet 04/17/17 Unknown Rx ED Review of Systems ROS: Stated complaint: ASTHMA ATTACK Other details as noted in HPI Comment: All other systems reviewed and negative Constitutional: denies: chills, fever Eyes: denies: eye pain, eye discharge, vision change ENT: denies: ear pain, throat pain Respiratory: cough, shortness of breath, wheezing Cardiovascular: denies: chest pain, palpitations Gastrointestinal: denies: abdominal pain, nausea, diarrhea Genitourinary: denies: urgency, dysuria, discharge Musculoskeletal: denies: back pain, joint swelling, arthralgia Skin: denies: rash, lesions Neurological: denies: headache, weakness, paresthesias Physical Exam - Physical Exam Vital Signs: Vital Signs 04/16/17 04/16/17 04/16/17 17:21 17:57 18:26 Temperature 97.5 F L Pulse Rate 83 Pulse Rate [ 88 89 Bilateral Upper Lobe] Respiratory 20 20 Rate [Bilateral Upper Lobe] Blood Pressure 124/65 O2 Sat by Pulse 99 Oximetry Physical Exam: GENERAL: The patient is well-developed well-nourished. HEENT: Normocephalic. Atraumatic. Extraocular motions are intact. Patient has moist mucous membranes. Pupils equal reactive to light bilaterally. NECK: Supple. Trachea is midline. CHEST/LUNGS: Mild wheezing throughout the chest. There is mild tachypnea but no accessory muscle use. There is no respiratory distress noted. HEART/CARDIOVASCULAR: Regular. There is no tachycardia. There is no gallop rub or murmur. ABDOMEN: Abdomen is soft, nontender. Patient has normal bowel sounds. There is no abdominal distention. SKIN: There is no rash. There is no edema. There is no diaphoresis. NEURO: The patient is awake, alert, and oriented. The patient is cooperative. The patient has no focal neurologic deficits. The patient has normal speech. MUSCULOSKELETAL: There is no tenderness or deformity. There is no limitation range of motion. There is no evidence of acute injury. ED Course Vital Signs 04/16/17 04/16/17 04/16/17 17:21 17:57 18:26 Temperature 97.5 F L Pulse Rate 83 Pulse Rate [ 88 89 Bilateral Upper Lobe] Respiratory 20 20 Rate [Bilateral Upper Lobe] Blood Pressure 124/65 O2 Sat by Pulse 99 Oximetry ED Medical Decision Making - Radiology Data Radiology results: image reviewed interpreted by me: Chest x-ray did not show any acute process. Heart is normal shape and size. No effusions. No pneumothorax. No signs of pneumonia seen. - Medical Decision Making 21-year-old female presents to the emergency department with complaint of one to 2 days of asthma and bronchospasm. She was not getting any relief with her home medications. The patient had some moderate respiratory issues and/or bronchospasm upon first arriving but by the time she received a long breathing treatment and I have seen the patient she is improved. By the time she has gotten back to bed 3, she has some mild wheezing throughout the chest but otherwise not appear to have any respiratory distress. Patient's vital signs stable throughout her ED course including being afebrile and there is no hypoxia. A chest x-ray was done that did not show any pneumonia, pleural effusions or any acute process. She was given another breathing treatment and upon reevaluation were bronchospasm or wheezing is a was completely resolved. She appears safe for discharge home. She was given a five-day course of steroids and a refill of her inhaler. She says that she does not need a refill of the nebulized medication. She was given referrals for primary care. She will return to the ER with any worsening of her symptoms or any acute distress. - Differential Diagnosis asthma, bronchitis, pneumonia Critical Care Time: No Critical care attestation.: If time is entered above; I have spent that time in minutes in the direct care of this critically ill patient, excluding procedure time. ED Disposition Clinical Impression: Wheezing Asthma exacerbation Qualifiers: Asthma severity: unspecified severity Qualified Code(s): J45.901 - Unspecified asthma with (acute) exacerbation Disposition: DC-01 TO HOME OR SELFCARE Is pt being admited?: No Condition: Stable Instructions: Asthma (ED) Additional Instructions: Please follow-up with a primary care physician in the next few days. Return to the emergency department with any worsening of your symptoms or any acute distress. Prescriptions: ALBUTEROL Inhaler [ProAir HFA Inhaler] 2 puff IH QID PRN #1 inhalation PRN Reason: Wheezing predniSONE [Deltasone] 40 mg PO QDAY #5 tablet Referrals: DELMY GARCIA MD [Primary Care Provider] - 3-5 Days KOMAL JOY MD, PHD [Staff Physician] - 3-5 Days [facility] [Outside] - 3-5 Days Time of Disposition: 02:11
[2017-04-17] MEDS ORDERED: NACL 0.9% 1000 ML 1,000 ML IV ONE (00:16)
[2017-04-17 02:46] VITALS: BP 100/52
--- NOTE | 2017-04-17 07:55 | XRay Report ---
ROUTINE CHEST, TWO VIEWS: HISTORY: Cough. The trachea, heart, mediastinal contour, lung ware and bony thorax are unremarkable. IMPRESSION: Unremarkable chest x-ray.
== END 2017-04-17 02:43 | disposition home or self-care (01) ==
LOC: ED 17:17
DX: J45.901 Unspecified asthma with (acute) exacerbation (principal); R06.2 Wheezing
CPT/HCPCS: 71020; 94640; 96360; 96372; 99284; J2930; J7030

== ENCOUNTER 2017-05-30 09:24 | Emergency (ER) | payer SELFPAY ==
[2017-05-30] MEDS ORDERED: DUONEB *Not for PRN Use IH ONE (09:37)
[2017-05-30] MEDS ORDERED: PROVENTIL IH ONE (10:10)
[2017-05-30] MEDS ORDERED: ATROVENT IH ONE (10:10)
[2017-05-30 10:20] LABS: Basophils % (Auto) 0.9 % (0.0-1.8); Eosinophils % (Auto) 9.6 % (0.0-4.3); Hematocrit 37.7 % (30.3-42.9); Hemoglobin 11.6 gm/dl (10.1-14.3); Mean Corpuscular HGB Conc 31 % (30-34); Mean Corpuscular Volume 72 fl (79-97); Platelet Count 242 K/mm3 (140-440); Red Blood Count 5.21 M/mm3 (3.65-5.03); Red Cell Distribution Width 19.5 % (13.2-15.2); White Blood Count 8.3 K/mm3 (4.5-11.0)
--- NOTE | 2017-05-30 10:21 | Emergency Department Report ---
HPI - General Chief Complaint: Dyspnea/Respdistress Time Seen by Provider: 05/30/17 10:06 - HPI HPI: This is a 21-year-old female presents to emergency department with a preformed a history of what she believes is an asthma exacerbation. She' s been having some shortness of breath, wheezing and a mixed dry and productive cough. She has been using her albuterol inhaler and nebulized treatments without any relief. She does have a history of admissions secondary to asthma but denies ever requiring intubation. She does not have a primary care physician. No recent travel or sick contacts at home. She denies any fever, back pain, chest pain, nausea, vomiting. ED Past Medical Hx - Past Medical History Previous Medical History?: Yes Hx Hypertension: No Hx Heart Attack/AMI: No Hx Congestive Heart Failure: No Hx Diabetes: No Hx Deep Vein Thrombosis: No Hx Renal Disease: No Hx Sickle Cell Disease: No Hx Seizures: No Hx Asthma: Yes Hx COPD: No Hx HIV: No Additional medical history: Vaginal delivery 12-06-2015 - Surgical History Past Surgical History?: No - Social History Smoking Status: Never Smoker Substance Use Type: None - Medications Home Medications: Home Medications Medication Instructions Recorded Confirmed Last Taken Type ALBUTEROL Inhaler [ProAir HFA 2 puff IH QID PRN #1 inhalation 05/30/17 Unknown Rx Inhaler] ALBUTEROL NEB's [Proventil 0.083% 2.5 mg IH TID PRN #1 box 05/30/17 Unknown Rx NEBS] predniSONE [Deltasone] 20 mg PO QDAY #5 tab 05/30/17 Unknown Rx ED Review of Systems ROS: Stated complaint: ASTHMA ATTACK Other details as noted in HPI Comment: All other systems reviewed and negative Constitutional: denies: chills, fever Eyes: denies: eye pain, eye discharge, vision change ENT: denies: ear pain, throat pain Respiratory: cough, shortness of breath, wheezing Cardiovascular: denies: chest pain, edema Gastrointestinal: denies: abdominal pain, nausea, diarrhea Genitourinary: denies: urgency, dysuria, discharge Musculoskeletal: denies: back pain, joint swelling, arthralgia Skin: denies: rash, lesions Neurological: denies: headache, weakness, paresthesias Physical Exam - Physical Exam Vital Signs: Vital Signs 05/30/17 09:29 Temperature 97.6 F Pulse Rate 94 H Respiratory 28 H Rate Blood Pressure 115/87 O2 Sat by Pulse 96 Oximetry Physical Exam: GENERAL: The patient is well-developed well-nourished. HENT: Normocephalic. Atraumatic. Patient has moist mucous membranes. EYES: Extraocular motions are intact. Pupils equal reactive to light bilaterally. NECK: Supple. Trachea is midline. CHEST/LUNGS: Mild to moderate wheezing throughout the chest. There is mild tachypnea but no accessory muscle use. No conversational dyspnea. There is no respiratory distress noted. HEART/CARDIOVASCULAR: Regular. There is no tachycardia. There is no gallop rub or murmur. ABDOMEN: Abdomen is soft, nontender. Patient has normal bowel sounds. There is no abdominal distention. SKIN: Skin is warm and dry. NEURO: The patient is awake, alert, and oriented. The patient is cooperative. The patient has no focal neurologic deficits. The patient has normal speech. MUSCULOSKELETAL: There is no tenderness or deformity. There is no limitation range of motion. There is no evidence of acute injury. ED Course Vital Signs 05/30/17 09:29 Temperature 97.6 F Pulse Rate 94 H Respiratory 28 H Rate Blood Pressure 115/87 O2 Sat by Pulse 96 Oximetry ED Medical Decision Making - Lab Data Result diagrams: 05/30/17 10:04 05/30/17 10:04 - Radiology Data Radiology results: image reviewed interpreted by me: Chest x-ray does not show any acute process. There are no pleural effusions, obvious pneumonia and there is no pneumothorax. - Medical Decision Making 21-year-old female presents to the emergency department with what appears to be an asthma exacerbation. She has mild to moderate wheezing and/or bronchospasm. There is no respiratory distress or any hypoxia. Chest x-ray does not show any acute process. The patient was given albuterol, Atrovent, steroids and magnesium. She was reevaluated multiple times for multiple hours and is feeling better and her bronchospasm has greatly improved. She did not have any tachycardia on first arrival but after the beta agonists her heart rate went up. She received some IV fluid resuscitation and this also improved prior to discharge. Patient says she is feeling much better and asking for discharge home. She was given a five-day course of steroids, refill of her albuterol and multiple referrals for primary care. She has been encouraged to return to the emergency Department with any worsening of her symptoms or any acute distress. - Differential Diagnosis asthma, bronchitis, pneumonia, URI Critical Care Time: No Critical care attestation.: If time is entered above; I have spent that time in minutes in the direct care of this critically ill patient, excluding procedure time. ED Disposition Clinical Impression: Asthma exacerbation, Wheezing, Cough Disposition: TO HOME OR SELFCARE Is pt being admited?: No Condition: Stable Instructions: Asthma (ED) Additional Instructions: Please follow up with a primary care physician in the next few days. Return to the emergency Department with any worsening of your symptoms or any acute distress. Prescriptions: ALBUTEROL Inhaler [ProAir HFA Inhaler] 2 puff IH QID PRN #1 inhalation PRN Reason: Wheezing ALBUTEROL NEB's [Proventil 0.083% NEBS] 2.5 mg IH TID PRN #1 box PRN Reason: Wheezing predniSONE [Deltasone] 20 mg PO QDAY #5 tab Referrals: KOKI CHRISTINA MD [Staff Physician] - 3-5 Days [facility] [Outside] - 3-5 Days Time of Disposition: 15:29
[2017-05-30 10:24] LABS: Mean Corpuscular Hemoglobin 22 pg (28-32)
[2017-05-30 10:34] LABS: Anion Gap 17 mmol/L; Blood Urea Nitrogen 7 mg/dL (7-17); Calcium 8.7 mg/dL (8.4-10.2); Carbon Dioxide 23 mmol/L (22-30); Chloride 105.9 mmol/L (98-107); Glucose 125 mg/dL (65-100); Potassium 3.2 mmol/L (3.6-5.0); Sodium 143 mmol/L (137-145)
--- NOTE | 2017-05-30 10:54 | XRay Report ---
CHEST 2 VIEWS INDICATION: Shortness of breath. COMPARISON: 04/16/2017. FINDINGS: PA and lateral chest radiographs demonstrate normal cardiomediastinal silhouette. Slight peribronchial thickening. Otherwise clear lungs. Intact bones. CONCLUSION: Slight peribronchial thickening. No pneumonia. Thank you for the opportunity to participate in this patient's care.
[2017-05-30] MEDS ORDERED: K-DUR PO ONE (10:59)
[2017-05-30] MEDS ORDERED: NACL 0.9% 1000 ML 1,000 ML IV ONE ×2 (11:53→14:25)
[2017-05-30] MEDS ORDERED: MAGNESIUM SULFATE 2GM/50ML 2 GM/50 ML BAG IV ONE (11:54)
[2017-05-30] MEDS ORDERED: XOPENEX IH ONE (12:06)
[2017-05-30 15:28] VITALS: BP 102/53
== END 2017-05-30 15:44 | disposition home or self-care (01) ==
LOC: ED 09:24
DX: J45.901 Unspecified asthma with (acute) exacerbation (principal)
CPT/HCPCS: 36415; 71020; 80048; 85025; 93005; 93010; 94640; 96361; 96365; 96375; 99284; J2930; J3475; J7030

== ENCOUNTER 2017-07-06 23:45 | Emergency (ER) | payer SELFPAY ==
--- NOTE | 2017-07-07 03:21 | Emergency Department Report ---
ED Female HPI - General Chief complaint: Urogenital-Female Stated complaint: VAGINAL DISCHARGE Time Seen by Provider: 07/07/17 03:19 Source: patient Mode of arrival: Ambulatory Limitations: No Limitations - History of Present Illness Initial comments: 21 YO FEMALE WITH COMPLAINT ONE WEEK HISTORY OF PRURITUS IN HER VAGINAL AREA ACCOMPANIED BY BURNING. pT HAS BEEN PUTTING STEROIDS ON HER LABIA. SHE HAS DIFFICULTY WALKING BECAUSE OF HER VAGINAL PAIN. DENIES FEVER, CHILLS AND VAGINAL DISCHARGE. ADMITS TO A HISTORY OF CHLAMYDIA DURING . MS IRWIN IS SEXUALLY ACTIVE WITH ONE PARTNER. MD Complaint: vaginal discharge -: Gradual, week(s) (1) Location: labia Radiation: non-radiating Severity: severe Severity scale (0 -10): 9 Quality: sharp, burning, other (PRURITIC) Consistency: constant Improves with: other (LAYING STILL) Worsens with: urination, movement Are you Now?: No Associated Symptoms: vaginal discharge. denies: vaginal bleeding, abdominal pain, nausea/vomiting - Related Data Sexually active: Yes : 1 Para: 1 A: 0 Previous Rx's Medication Instructions Recorded Last Taken Type ALBUTEROL Inhaler [ProAir HFA 2 puff IH QID PRN #1 inhalation 05/30/17 Unknown Rx Inhaler] ALBUTEROL NEB's [Proventil 0.083% 2.5 mg IH TID PRN #1 box 05/30/17 Unknown Rx NEBS] predniSONE [Deltasone] 20 mg PO QDAY #5 tab 05/30/17 Unknown Rx Valacyclovir HCl [Valtrex] 1,000 mg PO BID #20 tab 07/07/17 Unknown Rx metroNIDAZOLE [Flagyl] 500 mg PO Q12HR #14 tab 07/07/17 Unknown Rx oxyCODONE /ACETAMINOPHEN [Percocet 1 tab PO Q6HR PRN #14 tablet 07/07/17 Unknown Rx 5/325] Allergies Allergy/AdvReac Type Severity Reaction Status Date / Time No Known Allergies Allergy Verified 08/19/16 22:15 ED Review of Systems ROS: Stated complaint: PROBLEM URINATING Other details as noted in HPI Constitutional: denies: chills, fever Eyes: denies: eye pain, eye discharge, vision change ENT: denies: ear pain, throat pain Respiratory: denies: cough, shortness of breath, wheezing Cardiovascular: denies: chest pain, palpitations Endocrine: no symptoms reported Gastrointestinal: denies: abdominal pain, nausea, diarrhea Genitourinary: denies: urgency, dysuria, discharge Musculoskeletal: denies: back pain, joint swelling, arthralgia Skin: denies: rash, lesions Neurological: denies: headache, weakness, paresthesias Psychiatric: denies: anxiety, depression Hematological/Lymphatic: denies: easy bleeding, easy bruising ED Past Medical Hx - Past Medical History Previous Medical History?: Yes Hx Hypertension: No Hx Heart Attack/AMI: No Hx Congestive Heart Failure: No Hx Diabetes: No Hx Deep Vein Thrombosis: No Hx Renal Disease: No Hx Sickle Cell Disease: No Hx Seizures: No Hx Asthma: Yes Hx COPD: No Hx HIV: No Additional medical history: Vaginal delivery 12-06-2015 - Social History Smoking Status: Never Smoker - Medications Home Medications: Home Medications Medication Instructions Recorded Confirmed Last Taken Type ALBUTEROL Inhaler [ProAir HFA 2 puff IH QID PRN #1 inhalation 05/30/17 Unknown Rx Inhaler] ALBUTEROL NEB's [Proventil 0.083% 2.5 mg IH TID PRN #1 box 05/30/17 Unknown Rx NEBS] predniSONE [Deltasone] 20 mg PO QDAY #5 tab 05/30/17 Unknown Rx Valacyclovir HCl [Valtrex] 1,000 mg PO BID #20 tab 07/07/17 Unknown Rx metroNIDAZOLE [Flagyl] 500 mg PO Q12HR #14 tab 07/07/17 Unknown Rx oxyCODONE /ACETAMINOPHEN [Percocet 1 tab PO Q6HR PRN #14 tablet 07/07/17 Unknown Rx 5/325] ED Physical Exam - General Limitations: No Limitations General appearance: alert, in no apparent distress - Head Head exam: Present: atraumatic, normocephalic - Eye Eye exam: Present: normal appearance - ENT ENT exam: Present: mucous membranes moist - Neck Neck exam: Present: normal inspection - Respiratory Respiratory exam: Present: normal lung sounds bilaterally. Absent: respiratory distress - Cardiovascular Cardiovascular Exam: Present: regular rate, normal rhythm. Absent: systolic murmur, diastolic murmur, rubs, gallop - GI/Abdominal GI/Abdominal exam: Present: soft, normal bowel sounds - External exam: Present: erythema, swelling, lesions (OPEN VESICLES,SWOLLEN LABIA , LARGE AMOUNT OF WHITE DISCHARGE). Absent: normal external exam Speculum exam: Present: vaginal discharge, other (VERY MALODOROUS). Absent: normal speculum exam Bi-manual exam: Present: other (DEFERRED SECONDARY TO PAIN) - Extremities Exam Extremities exam: Present: normal inspection, full ROM - Back Exam Back exam: Present: normal inspection - Neurological Exam Neurological exam: Present: alert, oriented X3, CN II-XII intact, abnormal gait (SECONDARY TO PAIN) - Psychiatric Psychiatric exam: Present: normal affect, normal mood - Skin Skin exam: Present: warm, dry, intact, normal color. Absent: rash ED Course Vital Signs 07/07/17 02:25 Temperature 98.1 F Pulse Rate 100 H Respiratory 20 Rate Blood Pressure 120/75 O2 Sat by Pulse 100 Oximetry Critical care attestation.: If time is entered above; I have spent that time in minutes in the direct care of this critically ill patient, excluding procedure time. ED Disposition Clinical Impression: Herpes genitalis in women, Vaginitis and vulvovaginitis, Bacterial vaginosis, Cardiac murmur, previously undiagnosed Disposition: DC-01 TO HOME OR SELFCARE Is pt being admited?: No Does the pt Need Aspirin: No Condition: Stable Instructions: Bacterial Vaginosis (ED), Genital Herpes Simplex (ED), Vaginitis (ED) Prescriptions: metroNIDAZOLE [Flagyl] 500 mg PO Q12HR #14 tab oxyCODONE /ACETAMINOPHEN [Percocet 5/325] 1 tab PO Q6HR PRN #14 tablet PRN Reason: Pain Valacyclovir HCl [Valtrex] 1,000 mg PO BID #20 tab Referrals: PRIMARY CARE, [Primary Care Provider] - 3-5 Days [facility] [Outside] - 3-5 Days [facility] [Outside] - 3-5 Days Forms: STI Treatment and Prevention
[2017-07-07 04:11] LABS: Bacteria,Urine 3+ /HPF (Negative); Bilirubin,Urine NEG (Negative); Blood,Urine NEG (Negative); Ketones,Urine NEG (Negative); Leukocyte Esterase,Urine LG (Negative); Mucus,Urine 1+ /HPF; Nitrite,Urine NEG (Negative)
[2017-07-07] MEDS ORDERED: DIFLUCAN PO ONE (05:13)
[2017-07-07] MEDS ORDERED: VALTREX PO ONE (05:13)
[2017-07-07] MEDS ORDERED: ROCEPHIN IM ONE (06:00)
[2017-07-07] MEDS ORDERED: ZITHROMAX PO ONE (06:00)
[2017-07-07] MEDS ORDERED: XYLOCAINE 1% MPF 5 mL INFILTRATI ONE (06:00)
[2017-07-07 08:10] VITALS: BP 122/70
== END 2017-07-07 08:09 | disposition home or self-care (01) ==
LOC: ED 23:45
DX: A60.04 Herpesviral vulvovaginitis (principal); N76.0 Acute vaginitis; R01.1 Cardiac murmur, unspecified; J45.909 Unspecified asthma, uncomplicated
CPT/HCPCS: 36415; 81001; 81025; 86695; 86696; 87210; 87255; 87591; 96372; 99284; J0696

== ENCOUNTER 2017-08-16 18:01 | Inpatient (IN) | payer SELFPAY ==
[2017-08-16] MEDS ORDERED: PROVENTIL IH ONE ×2 (18:03→19:08)
[2017-08-16] MEDS ORDERED: ATROVENT IH ONE ×2 (18:03→19:08)
[2017-08-16] MEDS ORDERED: MAGNESIUM SULFATE 2GM/50ML 2 GM/50 ML BAG IV ONE ×2 (18:11→18:15)
--- NOTE | 2017-08-16 18:17 | Emergency Department Report ---
HPI - General Chief Complaint: Dyspnea/Respdistress Time Seen by Provider: 08/16/17 18:11 - HPI HPI: Room 20 The patient is a 21-year-old female presenting with a chief complaint of shortness of breath. Patient states her symptoms began last night with some shortness of breath and wheezing. Today she developed the cough is nonproductive and worsening shortness of breath. The patient states she does use her nebulizer and inhaler but it has not helped. Patient does admit to rhinorrhea but denies fever. Location: Lungs Duration: [See above] Quality: Shortness of breath Severity: Moderate Modifying factors: [see above] Context: [see above] Mode of transportation: [not driving] ED Past Medical Hx - Past Medical History Hx Asthma: Yes Additional medical history: Vaginal delivery 12-06-2015 - Surgical History Past Surgical History?: No - Social History Smoking Status: Never Smoker Substance Use Type: None (denies illicit drug use) - Medications Home Medications: Home Medications Medication Instructions Recorded Confirmed Last Taken Type ALBUTEROL Inhaler [ProAir HFA 2 puff IH QID PRN #1 inhalation 05/30/17 Unknown Rx Inhaler] ALBUTEROL NEB's [Proventil 0.083% 2.5 mg IH TID PRN #1 box 05/30/17 Unknown Rx NEBS] predniSONE [Deltasone] 20 mg PO QDAY #5 tab 05/30/17 Unknown Rx Valacyclovir HCl [Valtrex] 1,000 mg PO BID #20 tab 07/07/17 Unknown Rx metroNIDAZOLE [Flagyl] 500 mg PO Q12HR #14 tab 07/07/17 Unknown Rx oxyCODONE /ACETAMINOPHEN [Percocet 1 tab PO Q6HR PRN #14 tablet 07/07/17 Unknown Rx 5/325] ED Review of Systems ROS: Stated complaint: TUYET Other details as noted in HPI Constitutional: denies: fever ENT: other (rhinorrhea) Respiratory: cough, shortness of breath, wheezing Physical Exam - Physical Exam Vital Signs: Vital Signs 08/16/17 08/16/17 18:06 18:09 Temperature 98.6 F Pulse Rate 102 H Pulse Rate [ 140 H Bilateral Upper Lobe] Respiratory 30 H Rate Respiratory 32 H Rate [Bilateral Upper Lobe] Blood Pressure 146/65 O2 Sat by Pulse 96 Oximetry Physical Exam: GENERAL: The patient is well-developed well-nourished female sitting on stretcher with increased work of breathing. [] HEENT: Normocephalic. Atraumatic. Extraocular motions are intact. NECK: Supple. Trachea midline CHEST/LUNGS: Diffuse wheezing. Increased work of breathing HEART/CARDIOVASCULAR: Regular. There is tachycardia. There is no gallop rub or murmur. ABDOMEN: There is no abdominal distention. SKIN: There is no rash. There is no diaphoresis. NEURO: The patient is awake, alert, and oriented. The patient is cooperative. The patient has normal speech MUSCULOSKELETAL: There is no evidence of acute injury. ED Course Vital Signs 08/16/17 08/16/17 18:06 18:09 Temperature 98.6 F Pulse Rate 102 H Pulse Rate [ 140 H Bilateral Upper Lobe] Respiratory 30 H Rate Respiratory 32 H Rate [Bilateral Upper Lobe] Blood Pressure 146/65 O2 Sat by Pulse 96 Oximetry - Reevaluation(s) Reevaluation #1: 08/16/17 20:09 Patient states she is improving. Patient still has mild wheezing present bilaterally Reevaluation #2: 08/16/17 21:29 Patient states she feels improved but still has diffuse wheezing bilaterally. Will admit the patient to the hospital for further management ED Medical Decision Making - Lab Data Result diagrams: 08/16/17 20:20 08/16/17 20:39 - Differential Diagnosis acute asthma exacerbation, pneumonia, bronchitis Critical care attestation.: If time is entered above; I have spent that time in minutes in the direct care of this critically ill patient, excluding procedure time. ED Disposition Clinical Impression: Shortness of breath, Acute asthma exacerbation Disposition: OP ADMIT IP TO THIS HOSP Is pt being admited?: Yes Does the pt Need Aspirin: Yes Condition: Fair Referrals: PRIMARY CARE, [Primary Care Provider] - 3-5 Days Time of Disposition: 21:30 (hospitalist notified)
[2017-08-16] MEDS ORDERED: ZOFRAN ONE (18:22)
[2017-08-16] MEDS ORDERED: TYLENOL ONE (18:50)
[2017-08-16] MEDS ORDERED: TYLENOL PO ONE (18:52)
[2017-08-16] MEDS ORDERED: XOPENEX IH ONE ×2 (20:29→21:28)
[2017-08-16 21:00] LABS: Basophils % (Auto) 0.6 % (0.0-1.8); Eosinophils % (Auto) 4.3 % (0.0-4.3); Mean Corpuscular HGB Conc 31 % (30-34); Mean Corpuscular Volume 74 fl (79-97); Platelet Count 248 K/mm3 (140-440); Red Cell Distribution Width 18.5 % (13.2-15.2); White Blood Count 10.4 K/mm3 (4.5-11.0)
--- NOTE | 2017-08-16 21:09 | XRay Report ---
FINAL REPORT PROCEDURE: XR CHEST 1V AP TECHNIQUE: Chest radiograph anteroposterior view. CPT 45667 HISTORY: chest pain COMPARISON: No prior studies are available for comparison. FINDINGS: Heart: Normal. Mediastinum/Vessels: Normal. Lungs/Pleural space: Normal. Bony thorax: No acute osseous abnormality. Life support devices: None. IMPRESSION: No acute cardiopulmonary abnormality.
[2017-08-16 21:13] LABS: Anion Gap 19 mmol/L; BUN/Creatinine Ratio 15; Blood Urea Nitrogen 6 mg/dL (7-17); Calcium 8.9 mg/dL (8.4-10.2); Carbon Dioxide 26 mmol/L (22-30); Chloride 99.1 mmol/L (98-107); Glucose 129 mg/dL (65-100); Potassium 3.9 mmol/L (3.6-5.0); Sodium 140 mmol/L (137-145)
[2017-08-16 21:21] LABS: Hematocrit 38.5 % (30.3-42.9); Hemoglobin 11.8 gm/dl (10.1-14.3); Mean Corpuscular Hemoglobin 23 pg (28-32)
[2017-08-16] MEDS ORDERED: TYLENOL PO PRN (22:08)
[2017-08-16] MEDS ORDERED: DULCOLAX PR PRN (22:08)
[2017-08-16] MEDS ORDERED: MILK OF MAGNESIA PO PRN (22:08)
[2017-08-16] MEDS ORDERED: ZOFRAN IV PRN (22:08)
--- NOTE | 2017-08-16 22:35 | History and Physical Report ---
History of Present Illness Date of examination: 08/16/17 History of present illness: 21-year-old woman with a history of asthma comes emergency room because of shortness of breath that started last night. She has been using her nebulizer treatments at home without much improvement. Complaining of a nonproductive cough, no fever or chills Review Of Systems: Constitutional: no weight loss Ears, eyes, nose, mouth and throat: no nasal congestion, no nasal discharge, no sinus pressure, blurry vision, diplopia Neck: No neck pain or rigidity. Cardiovascular: no chest pain, orthopnea, palpitations Respiratory: + shortness of breath, cough Gastrointestinal: no abdominal pain, hematochezia Genitourinary : no dysuria, frequency , hematuria Musculoskeletal: no muscle ache Integumentary: no rash, no pruritis Neurological: no parathesias, focal weakness Endocrine: no cold or heat intolerance, no polyuria or polydipsia Hematologic/Lymphatic: no easy bruising, no easy bleeding, no gland swelling Allergic/Immunologic: no urticaria, no angioedema. PAST MEDICAL HISTORY:asthma PAST SURGICAL HISTORY:none FAMILY HISTORY: Hypertension SOCIAL HISTORY: Denies alcohol, tobacco, drugs Medications and Allergies Allergies Allergy/AdvReac Type Severity Reaction Status Date / Time No Known Allergies Allergy Verified 08/19/16 22:15 Home Medications Medication Instructions Recorded Confirmed Last Taken Type ALBUTEROL Inhaler [ProAir HFA 2 puff IH QID PRN #1 inhalation 05/30/17 Unknown Rx Inhaler] ALBUTEROL NEB's [Proventil 0.083% 2.5 mg IH TID PRN #1 box 05/30/17 Unknown Rx NEBS] predniSONE [Deltasone] 20 mg PO QDAY #5 tab 05/30/17 Unknown Rx Valacyclovir HCl [Valtrex] 1,000 mg PO BID #20 tab 07/07/17 Unknown Rx metroNIDAZOLE [Flagyl] 500 mg PO Q12HR #14 tab 07/07/17 Unknown Rx oxyCODONE /ACETAMINOPHEN [Percocet 1 tab PO Q6HR PRN #14 tablet 07/07/17 Unknown Rx 5/325] Active Meds: Active Medications Acetaminophen (Tylenol) 650 mg PO Q4H PRN PRN Reason: Pain MILD(1-3)/Fever >100.5/SPARKS Albuterol/Ipratropium (Duoneb *Not For Prn Use*) 1 ampul IH Q6HRT ALESIA Bisacodyl (Dulcolax) 10 mg AR QDAY PRN PRN Reason: Constipation unrelieved by MOM Enoxaparin Sodium (Lovenox) 30 mg SUB-Q QDAY ALESIA Magnesium Hydroxide (Milk Of Magnesia) 30 ml PO Q4H PRN PRN Reason: Constipation Methylprednisolone Sodium Succinate (Solu-Medrol) 125 mg IV Q6H ALESIA Ondansetron HCl (Zofran) 4 mg IV Q8H PRN PRN Reason: N/V unrelieved by Reglan Exam - Physical Exam Narrative exam: Gen. appearance: Patient lying in bed in no acute distress HEENT: Normocephalic/atraumatic, pupils equal round reactive to light, extra alkaline movement intact, no scleral icterus, no JVD or thyromegaly or nodule, neck is supple, mucous membrane moist, no erythema or exudate Heart: S1-S2, regular rate and rhythm Lungs: Wheezing bilateral breathing comfortable Abdomen: Positive bowel sounds, nontender, nondistended, no organomegaly Extremities: No edema, cyanosis, clubbing Neuro:: Oriented 3 , cranial nerves II-12 intact, speech, motor intact Skin: No rash, nodules, warm dry - Constitutional Vitals: Temp Pulse Resp BP Pulse Ox 98.6 F 115 H 23 146/65 96 08/16/17 18:06 08/16/17 22:26 08/16/17 22:26 08/16/17 18:06 08/16/17 18:06 Results - Labs CBC & Chem 7: 08/16/17 20:20 08/16/17 20:39 Labs: Abnormal lab results 08/16/17 08/16/17 Range/Units 20:20 20:39 RBC 5.20 H (3.65-5.03) M/mm3 MCV 74 L (79-97) fl MCH 23 L (28-32) pg RDW 18.5 H (13.2-15.2) % Lymph % (Auto) 7.3 L (13.4-35.0) % Lymph # 0.8 L (1.2-5.4) K/mm3 Seg Neutrophils % 83.3 H (40.0-70.0) % Seg Neutrophils # 8.6 H (1.8-7.7) K/mm3 BUN 6 L (7-17) mg/dL Creatinine 0.4 L (0.7-1.2) mg/dL Glucose 129 H (65-100) mg/dL - Imaging and Cardiology Chest x-ray: image reviewed Assessment and Plan Assessment Asthma exacerbation, acute Plan Admit to medicine Start IV steroids, nebulization treatments, DVT prophylaxis
[2017-08-17] MEDS: DUONEB *Not for PRN Use IH SCH ×4 (02:21→19:59)
[2017-08-17 05:37] LABS: Basophils % (Auto) 0.2 % (0.0-1.8); Hematocrit 35.4 % (30.3-42.9); Hemoglobin 11.2 gm/dl (10.1-14.3); Mean Corpuscular HGB Conc 32 % (30-34); Mean Corpuscular Volume 73 fl (79-97); Platelet Count 270 K/mm3 (140-440); Red Blood Count 4.89 M/mm3 (3.65-5.03); Red Cell Distribution Width 18.2 % (13.2-15.2); White Blood Count 4.8 K/mm3 (4.5-11.0)
[2017-08-17 05:41] LABS: Mean Corpuscular Hemoglobin 23 pg (28-32)
[2017-08-17 05:48] LABS: Anion Gap 16 mmol/L; BUN/Creatinine Ratio 14; Blood Urea Nitrogen 7 mg/dL (7-17); Calcium 9.4 mg/dL (8.4-10.2); Carbon Dioxide 25 mmol/L (22-30); Chloride 99.3 mmol/L (98-107); Glucose 162 mg/dL (65-100); Potassium 4.1 mmol/L (3.6-5.0); Sodium 136 mmol/L (137-145)
[2017-08-17] MEDS: LOVENOX SUB-Q SCH (09:05)
[2017-08-17] MEDS ORDERED: LOVENOX SUB-Q SCH (10:00)
--- NOTE | 2017-08-17 13:23 | Progress Note ---
Assessment and Plan Assessment and plan: 21-year-old -[place] female with medical history significant for asthma presented to the emergency department for complaints of difficulty of breathing. She was given breathing treatment in the emergency department and admitted to the floor for further management. Acute hypoxic respiratory failure secondary to asthma exacerbation - Patient is on duonebs, Solu-Medrol, oxygen support DVT prophylaxis Lovenox Disposition - Possible discharge tomorrow morning History Interval history: Patient was seen and vomited this morning, shows also present is getting better , still wheezing. Hospitalist Physical - Physical exam Narrative exam: Not in cardiopulmonary distress. The patient appeared well nourished and normally developed. Vital signs as documented. Head exam is unremarkable. No scleral icterus . Neck is without jugular venous distension, thyromegaly, or carotid bruits. Lungs wheezing all over the chest. Cardiac exam reveals regular rate and Rhythm. First and second heart sounds normal. No murmurs, rubs or gallops. Abdominal exam reveals normal bowel sounds, no masses, no organomegaly and no aortic enlargement. Extremities are nonedematous and both femoral and pedal pulses are normal. [employer]VISOR: Alert and oriented 3. No focal weakness. - Constitutional Vitals: Temp Pulse Resp BP Pulse Ox 98.0 F 110 H 16 109/71 95 08/17/17 08:19 08/17/17 13:11 08/17/17 13:11 08/17/17 08:19 08/17/17 11:56 Results - Labs CBC & Chem 7: 08/17/17 04:47 08/17/17 04:47 Labs: Laboratory Last Values WBC 4.8 K/mm3 (4.5-11.0) 08/17/17 04:47 RBC 4.89 M/mm3 (3.65-5.03) 08/17/17 04:47 Hgb 11.2 gm/dl (10.1-14.3) 08/17/17 04:47 Hct 35.4 % (30.3-42.9) 08/17/17 04:47 MCV 73 fl (79-97) L 08/17/17 04:47 MCH 23 pg (28-32) L 08/17/17 04:47 MCHC 32 % (30-34) 08/17/17 04:47 RDW 18.2 % (13.2-15.2) H 08/17/17 04:47 Plt Count 270 K/mm3 (140-440) 08/17/17 04:47 Lymph % (Auto) 12.4 % (13.4-35.0) L 08/17/17 04:47 [place] % (Auto) 1.9 % (0.0-7.3) 08/17/17 04:47 Eos % (Auto) 0.0 % (0.0-4.3) 08/17/17 04:47 Baso % (Auto) 0.2 % (0.0-1.8) 08/17/17 04:47 Lymph # 0.6 K/mm3 (1.2-5.4) L 08/17/17 04:47 [place] # 0.1 K/mm3 (0.0-0.8) 08/17/17 04:47 Eos # 0.0 K/mm3 (0.0-0.4) 08/17/17 04:47 Baso # 0.0 K/mm3 (0.0-0.1) 08/17/17 04:47 Seg Neutrophils % 85.5 % (40.0-70.0) H 08/17/17 04:47 Seg Neutrophils # 4.1 K/mm3 (1.8-7.7) 08/17/17 04:47 Sodium 136 mmol/L (137-145) L 08/17/17 04:47 Potassium 4.1 mmol/L (3.6-5.0) 08/17/17 04:47 Chloride 99.3 mmol/L (98-107) 08/17/17 04:47 Carbon Dioxide 25 mmol/L (22-30) 08/17/17 04:47 Anion Gap 16 mmol/L 08/17/17 04:47 BUN 7 mg/dL (7-17) 08/17/17 04:47 Creatinine 0.5 mg/dL (0.7-1.2) L 08/17/17 04:47 Estimated GFR > 60 ml/min 08/17/17 04:47 BUN/Creatinine Ratio 14 % 08/17/17 04:47 Glucose 162 mg/dL (65-100) H 08/17/17 04:47 Calcium 9.4 mg/dL (8.4-10.2) 08/17/17 04:47
[2017-08-18] MEDS: DUONEB *Not for PRN Use IH SCH (03:09)
[2017-08-18] MEDS: ATROVENT IH SCH ×5 (08:57→20:26)
[2017-08-18] MEDS: XOPENEX IH SCH ×3 (08:57→20:24)
[2017-08-18] MEDS: LOVENOX SUB-Q SCH (09:39)
[2017-08-18] MEDS ORDERED: PROVENTIL IH PRN (14:05)
--- NOTE | 2017-08-18 14:09 | Progress Note ---
Assessment and Plan Assessment and plan: 21-year-old -[place]ym[place] female with medical history significant for asthma presented to the emergency department for complaints of difficulty of breathing. She was given breathing treatment in the emergency department and admitted to the floor for further management. Acute hypoxic respiratory failure secondary to asthma exacerbation - Patient is on duonebs, Solu-Medrol, oxygen support DVT prophylaxis Lovenox Disposition - Possible discharge tomorrow morning History Interval history: Patient was seen and vomited this morning, shows also present is getting better , still wheezing. Hospitalist Physical - Physical exam Narrative exam: Not in cardiopulmonary distress. The patient appeared well nourished and normally developed. Vital signs as documented. Head exam is unremarkable. No scleral icterus . Neck is without jugular venous distension, thyromegaly, or carotid bruits. Lungs wheezing all over the chest. Cardiac exam reveals regular rate and Rhythm. First and second heart sounds normal. No murmurs, rubs or gallops. Abdominal exam reveals normal bowel sounds, no masses, no organomegaly and no aortic enlargement. Extremities are nonedematous and both femoral and pedal pulses are normal. 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 No focal weakness. - Constitutional Vitals: Temp Pulse Resp BP Pulse Ox 99.0 F 122 H 20 121/76 99 08/18/17 07:46 08/18/17 09:20 08/18/17 09:20 08/18/17 07:46 08/18/17 08:54 Results - Labs CBC & Chem 7: 08/17/17 04:47 08/17/17 04:47 Labs: Laboratory Last Values WBC 4.8 K/mm3 (4.5-11.0) 08/17/17 04:47 RBC 4.89 M/mm3 (3.65-5.03) 08/17/17 04:47 Hgb 11.2 gm/dl (10.1-14.3) 08/17/17 04:47 Hct 35.4 % (30.3-42.9) 08/17/17 04:47 MCV 73 fl (79-97) L 08/17/17 04:47 MCH 23 pg (28-32) L 08/17/17 04:47 MCHC 32 % (30-34) 08/17/17 04:47 RDW 18.2 % (13.2-15.2) H 08/17/17 04:47 Plt Count 270 K/mm3 (140-440) 08/17/17 04:47 Lymph % (Auto) 12.4 % (13.4-35.0) L 08/17/17 04:47 [place] % (Auto) 1.9 % (0.0-7.3) 08/17/17 04:47 Eos % (Auto) 0.0 % (0.0-4.3) 08/17/17 04:47 Baso % (Auto) 0.2 % (0.0-1.8) 08/17/17 04:47 Lymph # 0.6 K/mm3 (1.2-5.4) L 08/17/17 04:47 [place] # 0.1 K/mm3 (0.0-0.8) 08/17/17 04:47 Eos # 0.0 K/mm3 (0.0-0.4) 08/17/17 04:47 Baso # 0.0 K/mm3 (0.0-0.1) 08/17/17 04:47 Seg Neutrophils % 85.5 % (40.0-70.0) H 08/17/17 04:47 Seg Neutrophils # 4.1 K/mm3 (1.8-7.7) 08/17/17 04:47 Sodium 136 mmol/L (137-145) L 08/17/17 04:47 Potassium 4.1 mmol/L (3.6-5.0) 08/17/17 04:47 Chloride 99.3 mmol/L (98-107) 08/17/17 04:47 Carbon Dioxide 25 mmol/L (22-30) 08/17/17 04:47 Anion Gap 16 mmol/L 08/17/17 04:47 BUN 7 mg/dL (7-17) 08/17/17 04:47 Creatinine 0.5 mg/dL (0.7-1.2) L 08/17/17 04:47 Estimated GFR > 60 ml/min 08/17/17 04:47 BUN/Creatinine Ratio 14 % 08/17/17 04:47 Glucose 162 mg/dL (65-100) H 08/17/17 04:47 Calcium 9.4 mg/dL (8.4-10.2) 08/17/17 04:47
[2017-08-18] MEDS ORDERED: NACL 0.9% NEBU ONE (14:13)
[2017-08-18] MEDS ORDERED: SINGULAIR PO SCH (22:00)
[2017-08-19] MEDS: XOPENEX IH SCH ×2 (02:35→09:01)
[2017-08-19] MEDS: ATROVENT IH SCH ×2 (02:35→09:01)
[2017-08-19] MEDS: LOVENOX SUB-Q SCH (09:26)
[2017-08-19] MEDS ORDERED: ROBITUSSIN DM PO PRN (09:52)
--- NOTE | 2017-08-19 09:59 | Discharge Summary ---
Providers - Providers Date of Admission: 08/16/17 22:08 Date of discharge: 08/19/17 Attending physician: NATHANIEL COCHRAN MD Primary care physician: FIELD MERCHANDISER Hospitalization Reason for admission: Asthma exacerbation Condition: Stable Pertinent studies: Chest x-ray hyperinflated lung ware. Hospital course: 21-year-old -Iranian female with past medical history significant for asthma present to the emergency department complaining of shortness of breath. Patient said she has been ran out of her asthma medication for the last 1 week. In the emergency department she was treated with albuterol inhalers and nebulizers with no significant improvement and then admitted to the floor. In the floor the patient was treated with IV Solu-Medrol, nebulizers, oxygen support, singular and patient showed improvement. Then patient was discharged home with Medrol pack, nebulizers were refilled, she was given singular and albuterol inhalers. Patient is hemodynamically stable at the time of discharge , patient's medications were reviewed and updated of the time of discharge. Patient's questions and concerns were addressed at the bedside. Patient was advised to be compliant with her medications. Disposition: DC-01 TO HOME OR SELFCARE Time spent for discharge: 31 minutes - Discharge Diagnoses (1) Asthma exacerbation Status: Acute (2) Shortness of breath Status: Acute (3) Cough Status: Acute (4) Wheezing Status: Acute Core Measure Documentation - Palliative Care Palliative Care/ Comfort Measures: Not Applicable - Core Measures Any of the following diagnoses?: none Exam - Physical Exam Narrative exam: Not in cardiopulmonary distress. The patient appeared well nourished and normally developed. Vital signs as documented. Head exam is unremarkable. No scleral icterus . Neck is without jugular venous distension, thyromegaly, or carotid bruits. Lungs significant for scattered wheezing. Cardiac exam reveals regular rate and Rhythm. First and second heart sounds normal. No murmurs, rubs or gallops. Abdominal exam reveals normal bowel sounds, no masses, no organomegaly and no aortic enlargement. Extremities are nonedematous and both femoral and pedal pulses are normal. 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 No focal weakness. - Constitutional Vitals: Temp Pulse Resp BP Pulse Ox 98.1 F 112 H 18 108/70 94 08/19/17 07:52 08/19/17 09:18 08/19/17 09:18 08/19/17 07:52 08/19/17 09:01 Plan Activity: no restrictions Weight Bearing Status: Full Weight Bearing Diet: regular Additional Instructions: Please follow at [facility] within 2 weeks Follow up with: PRIMARY CARE, [Primary Care Provider] - 3-5 Days Prescriptions: Montelukast [Singulair] 10 mg PO QHS #30 tablet ALBUTEROL Inhaler [ProAir HFA Inhaler] 2 puff IH QID PRN #1 inhalation PRN Reason: Wheezing ALBUTEROL NEB's [Proventil 0.083% NEBS] 2.5 mg IH TID PRN #1 box PRN Reason: Wheezing guaiFENesin DM [Robitussin Dm] 20 ml PO Q4H PRN #1 bottle PRN Reason: Cough Prednisone [predniSONE 10 mg (6-Day Pack, 21 Tabs)] 10 mg PO .TAPER #1 tab.ds.pk
[2017-08-19] MEDS ORDERED: GUAIFENESIN DM SYRUP PO PRN ×2 (11:20→12:00)
[2017-08-19 11:54] VITALS: BP 102/64
== END 2017-08-19 12:15 | disposition home or self-care (01) | DRG 189 ==
LOC: ED 18:01 → 3A 22:08
PROVIDERS: ADMIT Internal Medicine; ATTEND Internal Medicine
DX: J96.01 Acute respiratory failure with hypoxia (principal); J45.901 Unspecified asthma with (acute) exacerbation; Z82.49 Family history of ischemic heart disease and other diseases of the circulatory system
CPT/HCPCS: 36415; 71010; 80048; 85025; 94640; 94760; 96365; 96375; J1650; J2405; J2930; J3475

== ENCOUNTER 2017-10-03 08:58 | Emergency (ER) | payer SELFPAY ==
[2017-10-03] MEDS ORDERED: DUONEB *Not for PRN Use IH ONE ×2 (09:35→15:26)
[2017-10-03] MEDS ORDERED: PROVENTIL IH ONE ×3 (15:28→16:18)
--- NOTE | 2017-10-03 15:30 | Emergency Department Report ---
ED Asthma HPI - General Chief Complaint: Adult Asthma Stated Complaint: ASTHMA Time Seen by Provider: 10/03/17 15:05 Source: patient Mode of arrival: Ambulatory Limitations: No Limitations - History of Present Illness Initial Comments: 21-year-old female past medical history asthma presents with complaint of wheezing which got progressively worse overnight. Patient states she used the last of her albuterol nebulizer medication at home and came to the ED when she ran out. Patient is awake alert and oriented 3 fully lucid speaking in full sentences. No audible wheezing or stridor. Denies cough fever chills nausea or body aches. No visible respiratory retractions. Denies pleuritic chest pain palpitations or cough. Denies being a smoker. denies any OCP use MD Complaint: "asthma attack", wheezing -: During the night Severity: mild Context: ran out of meds Treatments Prior to Arrival: inhaled bronchodilator - Related Data Current Asthma Therapy: inhaled bronchodilator Previous Rx's Medication Instructions Recorded Last Taken Type ALBUTEROL Inhaler [ProAir HFA 2 puff IH QID PRN #1 inhalation 08/19/17 Unknown Rx Inhaler] ALBUTEROL NEB's [Proventil 0.083% 2.5 mg IH TID PRN #1 box 08/19/17 Unknown Rx NEBS] Montelukast [Singulair] 10 mg PO QHS #30 tablet 08/19/17 Unknown Rx Prednisone [predniSONE 10 mg 10 mg PO .TAPER #1 tab.ds.pk 08/19/17 Unknown Rx (6-Day Pack, 21 Tabs)] guaiFENesin DM [Robitussin Dm] 20 ml PO Q4H PRN #1 bottle 08/19/17 Unknown Rx Albuterol Sulfate [Albuterol 0.63% 0.63 mg IH Q4H PRN #1 box 10/03/17 Unknown Rx NEBS] Albuterol Sulfate [Ventolin Hfa] 1 puff IH Q4H PRN #1 hfa.aer.ad 10/03/17 Unknown Rx predniSONE [Deltasone] 40 mg PO QDAY #10 tab 10/03/17 Unknown Rx Allergies Allergy/AdvReac Type Severity Reaction Status Date / Time No Known Allergies Allergy Verified 10/03/17 09:27 ED Review of Systems ROS: Stated complaint: ASTHMA Other details as noted in HPI Constitutional: denies: chills, fever Eyes: denies: eye pain, eye discharge, vision change ENT: denies: ear pain, throat pain Respiratory: wheezing. denies: shortness of breath Cardiovascular: denies: chest pain, palpitations Endocrine: no symptoms reported Gastrointestinal: denies: abdominal pain, nausea, diarrhea Genitourinary: denies: urgency, dysuria, discharge Musculoskeletal: denies: back pain, joint swelling, arthralgia Skin: denies: rash, lesions Neurological: denies: headache, weakness, paresthesias Psychiatric: denies: anxiety, depression Hematological/Lymphatic: denies: easy bleeding, easy bruising ED Past Medical Hx - Past Medical History Hx Asthma: Yes Additional medical history: Vaginal delivery 12-06-2015 - Social History Smoking Status: Never Smoker Substance Use Type: None - Medications Home Medications: Home Medications Medication Instructions Recorded Confirmed Last Taken Type ALBUTEROL Inhaler [ProAir HFA 2 puff IH QID PRN #1 inhalation 08/19/17 Unknown Rx Inhaler] ALBUTEROL NEB's [Proventil 0.083% 2.5 mg IH TID PRN #1 box 08/19/17 Unknown Rx NEBS] Montelukast [Singulair] 10 mg PO QHS #30 tablet 08/19/17 Unknown Rx Prednisone [predniSONE 10 mg 10 mg PO .TAPER #1 tab.ds.pk 08/19/17 Unknown Rx (6-Day Pack, 21 Tabs)] guaiFENesin DM [Robitussin Dm] 20 ml PO Q4H PRN #1 bottle 08/19/17 Unknown Rx Albuterol Sulfate [Albuterol 0.63% 0.63 mg IH Q4H PRN #1 box 10/03/17 Unknown Rx NEBS] Albuterol Sulfate [Ventolin Hfa] 1 puff IH Q4H PRN #1 hfa.aer.ad 10/03/17 Unknown Rx predniSONE [Deltasone] 40 mg PO QDAY #10 tab 10/03/17 Unknown Rx ED Physical Exam - General Limitations: No Limitations General appearance: alert, in no apparent distress - Head Head exam: Present: atraumatic, normocephalic - Eye Eye exam: Present: normal appearance, PERRL, EOMI - ENT ENT exam: Present: mucous membranes moist - Neck Neck exam: Present: normal inspection - Respiratory Respiratory exam: Present: normal lung sounds bilaterally, wheezes (bilateral wheezing both lung ware). Absent: respiratory distress - Cardiovascular Cardiovascular Exam: Present: regular rate, normal rhythm. Absent: systolic murmur, diastolic murmur, rubs, gallop - GI/Abdominal GI/Abdominal exam: Present: soft, normal bowel sounds - Extremities Exam Extremities exam: Present: normal inspection - Back Exam Back exam: Present: normal inspection - Neurological Exam Neurological exam: Present: alert, oriented X3 - Psychiatric Psychiatric exam: Present: normal affect, normal mood - Skin Skin exam: Present: warm, dry, intact, normal color. Absent: rash ED Course Vital Signs 10/03/17 10/03/17 10/03/17 09:28 09:41 09:49 Temperature 98 F Pulse Rate 97 H Pulse Rate [ 101 H 105 H Anterior Bilateral Throughout] Respiratory 24 Rate Respiratory 24 20 Rate [Anterior Bilateral Throughout] Blood Pressure 142/88 Blood Pressure [Right] O2 Sat by Pulse 94 Oximetry 10/03/17 10/03/17 10/03/17 14:08 15:35 16:02 Temperature 98.3 F Pulse Rate 100 H Pulse Rate [ 107 H 110 H Anterior Bilateral Throughout] Respiratory 20 Rate Respiratory 20 20 Rate [Anterior Bilateral Throughout] Blood Pressure 98/55 Blood Pressure [Right] O2 Sat by Pulse 96 Oximetry 10/03/17 10/03/17 10/03/17 16:40 16:50 18:59 Temperature 98.7 F Pulse Rate 132 H Pulse Rate [ 108 H 112 H Anterior Bilateral Throughout] Respiratory 22 Rate Respiratory 20 20 Rate [Anterior Bilateral Throughout] Blood Pressure Blood Pressure 102/76 [Right] O2 Sat by Pulse 97 Oximetry ED Medical Decision Making - Medical Decision Making A/P: Asthma exacerbation, reactive airway disease 1- refill on albuterol inhaler 2- short course prednisone 3- patient does not have any audible wheezing or stridor or retractions before discharge vital signs stable before discharge ambulatory without any dyspnea. 4- patient to follow up with primary care doctor Critical care attestation.: If time is entered above; I have spent that time in minutes in the direct care of this critically ill patient, excluding procedure time. ED Disposition Clinical Impression: Asthma Qualifiers: Asthma severity: mild Asthma persistence: intermittent Asthma complication type : with acute exacerbation Qualified Code(s): J45.21 - Mild intermittent asthma with (acute) exacerbation Disposition: DC-01 TO HOME OR SELFCARE Is pt being admited?: No Does the pt Need Aspirin: No Condition: Stable Instructions: Asthma (ED), Reactive Airways Disease (ED) Prescriptions: Albuterol Sulfate [Albuterol 0.63% NEBS] 0.63 mg IH Q4H PRN #1 box PRN Reason: Wheezing Albuterol Sulfate [Ventolin Hfa] 1 puff IH Q4H PRN #1 hfa.aer.ad PRN Reason: Wheezing predniSONE [Deltasone] 40 mg PO QDAY #10 tab Referrals: [facility] [Outside] - 3-5 Days [facility] [Outside] - 3-5 Days Forms: Work/School Release Form(ED) Time of Disposition: 18:57
[2017-10-03] MEDS ORDERED: MAGNESIUM SULFATE 2GM/50ML 2 GM/50 ML BAG IV ONE (17:10)
[2017-10-03 19:00] VITALS: BP 102/76
== END 2017-10-03 19:06 | disposition home or self-care (01) ==
LOC: ED 08:58
DX: J45.21 Mild intermittent asthma with (acute) exacerbation (principal)
CPT/HCPCS: 94640; 96365; 96375; 99283; J2930; J3475

== ENCOUNTER 2017-11-09 02:21 | Inpatient (IN) | payer SELFPAY ==
[2017-11-09] MEDS ORDERED: DUONEB *Not for PRN Use IH ONE ×3 (04:13→06:37)
--- NOTE | 2017-11-09 04:58 | XRay Report ---
FINAL REPORT PROCEDURE: XR CHEST ROUTINE 2V TECHNIQUE: PA and lateral chest radiographs were obtained. CPT 25528 HISTORY: cough COMPARISON: 08/16/2017 FINDINGS: Heart: Normal. Mediastinum/Vessels: Normal. Lungs/Pleural space: Normal. Bony thorax: No acute osseous abnormality. Other: IMPRESSION: Normal examination.
[2017-11-09] MEDS ORDERED: MAGNESIUM SULFATE 2GM/50ML 2 GM/50 ML BAG IV ONE (06:38)
--- NOTE | 2017-11-09 06:55 | Emergency Department Report ---
ED General Adult HPI - General Chief complaint: Adult Asthma Stated complaint: ASTHMA Time Seen by Provider: 11/09/17 06:09 Source: patient Mode of arrival: Ambulatory Limitations: No Limitations - History of Present Illness Initial comments: Patient with a history of asthma and previous admission here she states 2 or 3 months ago. She states that she has had occasional cough productive of light yellow sputum. She denies fever or chills or chest pain. She's had no recent travel. She denies leg pain or swelling. She states that she has flared up over the past few days. She is only taking albuterol. -: Gradual, days(s) Associated Symptoms: denies other symptoms, cough Treatments Prior to Arrival: other (inhaler only) - Related Data Previous Rx's Medication Instructions Recorded Last Taken Type ALBUTEROL Inhaler [ProAir HFA 2 puff IH QID PRN #1 inhalation 08/19/17 Unknown Rx Inhaler] ALBUTEROL NEB's [Proventil 0.083% 2.5 mg IH TID PRN #1 box 08/19/17 Unknown Rx NEBS] Montelukast [Singulair] 10 mg PO QHS #30 tablet 08/19/17 Unknown Rx Prednisone [predniSONE 10 mg 10 mg PO .TAPER #1 tab.ds.pk 08/19/17 Unknown Rx (6-Day Pack, 21 Tabs)] guaiFENesin DM [Robitussin Dm] 20 ml PO Q4H PRN #1 bottle 08/19/17 Unknown Rx Albuterol Sulfate [Albuterol 0.63% 0.63 mg IH Q4H PRN #1 box 10/03/17 Unknown Rx NEBS] Albuterol Sulfate [Ventolin Hfa] 1 puff IH Q4H PRN #1 hfa.aer.ad 10/03/17 Unknown Rx predniSONE [Deltasone] 40 mg PO QDAY #10 tab 10/03/17 Unknown Rx Allergies Allergy/AdvReac Type Severity Reaction Status Date / Time No Known Allergies Allergy Verified 10/03/17 09:27 ED Review of Systems ROS: Stated complaint: ASTHMA Other details as noted in HPI Constitutional: denies: chills, fever Eyes: denies: eye pain, eye discharge, vision change ENT: denies: ear pain, throat pain Respiratory: cough, shortness of breath, wheezing Cardiovascular: denies: chest pain, palpitations Endocrine: no symptoms reported Gastrointestinal: denies: abdominal pain, nausea, diarrhea Genitourinary: denies: urgency, dysuria, discharge Musculoskeletal: denies: back pain, joint swelling, arthralgia Skin: denies: rash, lesions Neurological: denies: headache, weakness, paresthesias Psychiatric: denies: anxiety, depression Hematological/Lymphatic: denies: easy bleeding, easy bruising ED Past Medical Hx - Past Medical History Hx Asthma: Yes Additional medical history: Vaginal delivery 12-06-2015 - Surgical History Past Surgical History?: No - Social History Smoking Status: Never Smoker Substance Use Type: None - Medications Home Medications: Home Medications Medication Instructions Recorded Confirmed Last Taken Type ALBUTEROL Inhaler [ProAir HFA 2 puff IH QID PRN #1 inhalation 08/19/17 Unknown Rx Inhaler] ALBUTEROL NEB's [Proventil 0.083% 2.5 mg IH TID PRN #1 box 08/19/17 Unknown Rx NEBS] Montelukast [Singulair] 10 mg PO QHS #30 tablet 08/19/17 Unknown Rx Prednisone [predniSONE 10 mg 10 mg PO .TAPER #1 tab.ds.pk 08/19/17 Unknown Rx (6-Day Pack, 21 Tabs)] guaiFENesin DM [Robitussin Dm] 20 ml PO Q4H PRN #1 bottle 08/19/17 Unknown Rx Albuterol Sulfate [Albuterol 0.63% 0.63 mg IH Q4H PRN #1 box 10/03/17 Unknown Rx NEBS] Albuterol Sulfate [Ventolin Hfa] 1 puff IH Q4H PRN #1 hfa.aer.ad 10/03/17 Unknown Rx predniSONE [Deltasone] 40 mg PO QDAY #10 tab 10/03/17 Unknown Rx ED Physical Exam - General Limitations: No Limitations General appearance: alert, in no apparent distress - Head Head exam: Present: atraumatic, normocephalic - Eye Eye exam: Present: normal appearance, PERRL, EOMI. Absent: scleral icterus - ENT ENT exam: Present: mucous membranes moist - Neck Neck exam: Present: normal inspection - Respiratory Respiratory exam: Present: wheezes, prolonged expiratory (mildly). Absent: normal lung sounds bilaterally, respiratory distress, rales, rhonchi, stridor, accessory muscle use, decreased breath sounds - Cardiovascular Cardiovascular Exam: Present: regular rate, normal rhythm. Absent: systolic murmur, diastolic murmur, rubs, gallop - GI/Abdominal GI/Abdominal exam: Present: soft, normal bowel sounds. Absent: distended, tenderness, guarding, rebound, rigid - Extremities Exam Extremities exam: Present: normal inspection, full ROM, normal capillary refill. Absent: tenderness, pedal edema, joint swelling, calf tenderness - Back Exam Back exam: Present: normal inspection - Neurological Exam Neurological exam: Present: alert, oriented X3, CN II-XII intact. Absent: motor sensory deficit - Psychiatric Psychiatric exam: Present: normal affect, normal mood - Skin Skin exam: Present: warm, dry, intact, normal color. Absent: rash ED Course Vital Signs 11/09/17 11/09/17 11/09/17 04:11 04:58 05:00 Temperature 98.2 F Pulse Rate 108 H 113 H Respiratory 20 24 Rate Blood Pressure 137/78 O2 Sat by Pulse 98 87 96 Oximetry 11/09/17 11/09/17 11/09/17 05:15 05:30 05:45 Temperature Pulse Rate 113 H 82 91 H Respiratory 25 H 26 H 26 H Rate Blood Pressure 134/84 113/71 139/88 O2 Sat by Pulse 100 100 100 Oximetry 11/09/17 11/09/17 05:53 06:00 Temperature Pulse Rate 81 Respiratory 23 25 H Rate Blood Pressure 125/71 O2 Sat by Pulse 100 100 Oximetry - Reevaluation(s) Reevaluation #1: Pulse oximetry is 93% on room air. The patient's work of breathing is normal. She is still wheezing however. She will be admitted to telemetry for further care and evaluation by Dr. Torres. 11/09/17 08:24 ED Medical Decision Making - Lab Data Pending - Radiology Data interpreted by me: Chest x-ray shows no acute finding Critical care attestation.: If time is entered above; I have spent that time in minutes in the direct care of this critically ill patient, excluding procedure time. ED Disposition Clinical Impression: URI (upper respiratory infection) Qualifiers: URI type: unspecified URI Qualified Code(s): J06.9 - Acute upper respiratory infection, unspecified Acute asthma exacerbation Qualifiers: Asthma severity: moderate Asthma persistence: persistent Qualified Code(s): J45.41 - Moderate persistent asthma with (acute) exacerbation Disposition: -09 OP ADMIT IP TO THIS HOSP Is pt being admited?: Yes Condition: Critical Referrals: MEDARDO PATTERSON MD [Primary Care Provider] - 3-5 Days Time of Disposition: 08:26
[2017-11-09] MEDS ORDERED: LEVAQUIN 750MG/150ML 750 MG/150 ML BAG IV ONE (08:19)
[2017-11-09] MEDS ORDERED: BABY ASPIRIN PO ONE (08:27)
[2017-11-09 09:42] LABS: Basophils % (Auto) 0.7 % (0.0-1.8); Eosinophils # (Auto) 0.1 K/mm3 (0.0-0.4); Eosinophils % (Auto) 1.3 % (0.0-4.3); Hematocrit 38.1 % (30.3-42.9); Hemoglobin 12.1 gm/dl (10.1-14.3); Lymphocytes # (Auto) 0.7 K/mm3 (1.2-5.4); Lymphocytes % (Auto) 11.6 % (13.4-35.0); Mean Corpuscular HGB Conc 32 % (30-34); Mean Corpuscular Volume 73 fl (79-97); Monocytes # (Auto) 0.1 K/mm3 (0.0-0.8); Platelet Count 254 K/mm3 (140-440); Red Blood Count 5.22 M/mm3 (3.65-5.03)
[2017-11-09 09:43] LABS: Mean Corpuscular Hemoglobin 23 pg (28-32); Red Cell Distribution Width 20.2 % (13.2-15.2)
[2017-11-09 10:03] LABS: Alanine Aminotransferase 12 units/L (7-56); Albumin 4.3 g/dL (3.9-5); BUN/Creatinine Ratio 12; Blood Urea Nitrogen 6 mg/dL (7-17); Calcium 9.1 mg/dL (8.4-10.2); Hemolysis Index 3
[2017-11-09 10:16] LABS: Bilirubin,Direct < 0.2 mg/dL (0-0.2)
--- NOTE | 2017-11-09 11:23 | History and Physical Report ---
History of Present Illness Date of examination: 11/09/17 Date of admission: 11/09/17 10:59 Chief complaint: Asthma exacerbation History of present illness: Patient is a 22-year-old lady was a history of asthma, started having progressively worsening shortness of breath with cough but no fever. Using multiple breathing treatments at home without improvement of her symptoms. Patient presented to the emergency department and was given more breathing treatment and solu Medrol and magnesium. Symptoms persisted. Patient denies any nausea vomiting, fever or chills. Admission was therefore requested. Past History Past Medical History: other (asthma) Past Surgical History: No surgical history Social history: denies: smoking, alcohol abuse, prescription drug abuse Family history: other (asthma) Medications and Allergies Allergies Allergy/AdvReac Type Severity Reaction Status Date / Time No Known Allergies Allergy Verified 10/03/17 09:27 Home Medications Medication Instructions Recorded Confirmed Last Taken Type ALBUTEROL Inhaler [ProAir HFA 2 puff IH QID PRN #1 inhalation 08/19/17 Unknown Rx Inhaler] ALBUTEROL NEB's [Proventil 0.083% 2.5 mg IH TID PRN #1 box 08/19/17 Unknown Rx NEBS] Montelukast [Singulair] 10 mg PO QHS #30 tablet 08/19/17 Unknown Rx Prednisone [predniSONE 10 mg 10 mg PO .TAPER #1 tab.ds.pk 08/19/17 Unknown Rx (6-Day Pack, 21 Tabs)] guaiFENesin DM [Robitussin Dm] 20 ml PO Q4H PRN #1 bottle 08/19/17 Unknown Rx Albuterol Sulfate [Albuterol 0.63% 0.63 mg IH Q4H PRN #1 box 10/03/17 Unknown Rx NEBS] Albuterol Sulfate [Ventolin Hfa] 1 puff IH Q4H PRN #1 hfa.aer.ad 10/03/17 Unknown Rx predniSONE [Deltasone] 40 mg PO QDAY #10 tab 10/03/17 Unknown Rx Exam - Constitutional Vitals: Temp Pulse Resp BP Pulse Ox 98.2 F 109 H 20 128/68 100 11/09/17 04:11 11/09/17 09:29 11/09/17 09:29 11/09/17 08:45 02/17/18 08:45 General appearance: Present: no acute distress, well-nourished - EENT Eyes: Present: PERRL - Neck Neck: Present: supple, normal ROM - Respiratory Respiratory effort: normal Respiratory: bilateral: wheezing - Cardiovascular Heart Sounds: Present: S1 & S2. Absent: rub, click - Extremities Extremities: pulses symmetrical, No edema Peripheral Pulses: within normal limits - Abdominal General gastrointestinal: Present: soft, non-tender, non-distended, normal bowel sounds - Integumentary Integumentary: Present: clear, warm, dry - Musculoskeletal Musculoskeletal: gait normal, strength equal bilaterally - Psychiatric Psychiatric: appropriate mood/affect, intact judgment & insight - Neurologic Neurologic: CNII-XII intact, moves all extremities Results - Labs CBC & Chem 7: 11/09/17 09:21 11/09/17 09:21 Labs: Abnormal lab results 11/09/17 11/09/17 Range/Units 09:21 09:21 RBC 5.22 H (3.65-5.03) M/mm3 MCV 73 L (79-97) fl MCH 23 L (28-32) pg RDW 20.2 H (13.2-15.2) % Lymph % (Auto) 11.6 L (13.4-35.0) % Lymph # 0.7 L (1.2-5.4) K/mm3 Seg Neutrophils % 84.4 H (40.0-70.0) % BUN 6 L (7-17) mg/dL Creatinine 0.5 L (0.7-1.2) mg/dL Glucose 124 H (65-100) mg/dL Assessment and Plan - Asthma Exacerbation Bronchodilators iv solumedrol iv Levaquin - Hyperglycemia A1c SS1 - DVT PPX with SCD
[2017-11-09] MEDS: DUONEB *Not for PRN Use IH SCH ×2 (13:47→20:59)
[2017-11-09 19:33] LABS: Bilirubin,Urine NEG (Negative); Blood,Urine NEG (Negative); Color,Urine Yellow (Yellow); HCG Qualitative,Urine Negative (Negative); Mucus,Urine FEW /HPF; Nitrite,Urine NEG (Negative); Protein,Urine <15 mg/dL mg/dL (Negative)
[2017-11-09] MEDS: SINGULAIR PO SCH (22:01)
[2017-11-10] MEDS ORDERED: TYLENOL PO PRN (01:32)
[2017-11-10] MEDS: DUONEB *Not for PRN Use IH SCH ×4 (02:38→20:35)
[2017-11-10 07:51] LABS: Basophils % (Auto) 0.1 % (0.0-1.8); Hemoglobin 11.5 gm/dl (10.1-14.3); Lymphocytes # (Auto) 1.3 K/mm3 (1.2-5.4); Lymphocytes % (Auto) 15.6 % (13.4-35.0); Mean Corpuscular HGB Conc 31 % (30-34); Mean Corpuscular Volume 73 fl (79-97); Monocytes # (Auto) 0.7 K/mm3 (0.0-0.8); Monocytes % (Auto) 7.7 % (0.0-7.3); Platelet Count 284 K/mm3 (140-440); Red Blood Count 5.07 M/mm3 (3.65-5.03)
[2017-11-10 07:54] LABS: Mean Corpuscular Hemoglobin 23 pg (28-32); Red Cell Distribution Width 20.6 % (13.2-15.2)
[2017-11-10 08:08] LABS: Alanine Aminotransferase 10 units/L (7-56); Albumin 4.1 g/dL (3.9-5); BUN/Creatinine Ratio 20; Blood Urea Nitrogen 10 mg/dL (7-17); Calcium 9.2 mg/dL (8.4-10.2); Hemolysis Index 2
--- NOTE | 2017-11-10 12:01 | Progress Note ---
Assessment and Plan - Asthma Exacerbation Bronchodilators iv solumedrol iv Levaquin - Hyperglycemia Likely steriod induced A1c SS1 - DVT PPX with SCD Subjective Date of service: 11/10/17 Principal diagnosis: asthma exacerbation Interval history: Still wheezing but less so Objective - Exam Narrative Exam: Constitutional: Well-nourished well-developed. In no distress Head: Normocephalic atraumatic Eyes: Pupils are equal round and reactive to light Nose: No enlarged turbinates, no septal deviation. Mouth: Moist mucous membranes. Neck: Supple no thyromegaly. No bruit. No JVD Heart: Regular rate and rhythm, S1-S2 abnormal. No rubs murmurs or gallop Lungs: Improved and movement. Expiratory wheeze Abdomen: Soft, nontender. Bowel sound are present. Extremities: No edema no cyanosis and no clubbing. Neuro: Alert oriented Oriented x3. No focal sensory or motor deficit. Skin: No rashes no hyperemic spots Psychiatry: Euthymic. Calm. - Constitutional Vitals: Vital Signs - 12hr 11/10/17 11/10/17 11/10/17 02:20 02:30 05:08 Temperature 97.8 F Pulse Rate 121 H Pulse Rate [ 98 H 97 H Posterior Bilateral Throughout] Respiratory 18 Rate Respiratory 20 18 Rate [Posterior Bilateral Throughout] Blood Pressure 131/60 O2 Sat by Pulse 96 Oximetry 11/10/17 11/10/17 11/10/17 07:51 09:33 09:41 Temperature 98.3 F Pulse Rate 105 H Pulse Rate [ 102 H 102 H Posterior Bilateral Throughout] Respiratory 18 Rate Respiratory 20 20 Rate [Posterior Bilateral Throughout] Blood Pressure 132/81 O2 Sat by Pulse 94 Oximetry - Labs CBC & Chem 7: 11/10/17 07:22 11/10/17 07:22 Labs: Abnormal lab results 11/10/17 11/10/17 Range/Units 07:22 07:22 RBC 5.07 H (3.65-5.03) M/mm3 MCV 73 L (79-97) fl MCH 23 L (28-32) pg RDW 20.6 H (13.2-15.2) % [place] % (Auto) 7.7 H (0.0-7.3) % Seg Neutrophils % 76.6 H (40.0-70.0) % Creatinine 0.5 L (0.7-1.2) mg/dL Glucose 130 H (65-100) mg/dL
[2017-11-10] MEDS: HYDROMET PO PRN (19:27)
[2017-11-11] MEDS: DUONEB *Not for PRN Use IH SCH ×2 (02:28→08:22)
[2017-11-11] MEDS: SINGULAIR PO SCH ×2 (04:12→21:41)
[2017-11-11] MEDS ORDERED: XOPENEX IH PRN (10:48)
[2017-11-11] MEDS: HYDROMET PO PRN (11:26)
[2017-11-11] MEDS: PULMICORT IH SCH ×2 (12:14→21:12)
[2017-11-11] MEDS: BROVANA NEBU IH SCH ×2 (12:14→22:47)
[2017-11-11] MEDS: XOPENEX IH SCH ×2 (14:18→20:48)
[2017-11-11] MEDS: ATROVENT IH SCH ×2 (14:18→22:48)
--- NOTE | 2017-11-11 19:16 | Progress Note ---
Assessment and Plan Assessment and plan: 22-year-old admitted with asthma exacerbation. - Asthma Exacerbation Bronchodilators Stat LABA,PAULA iv solumedrol iv Levaquin -Presumed chronic sinus tachycardia * Concern for developing cardiomyopathy although I believe the tachycardia as due to underlying asthma. Nevertheless will obtain cardiology consultation - Hyperglycemia Likely steriod induced A1c SS1 - DVT PPX with SCD Anticipated discharge in a.m. if clinically stable and improved History Interval history: Patient seen and examined this morning still with some shortness of breath although she is fast upper chest and her baseline. She states that at baseline she wheezes all the time she believes she has chronically elevated heart rate. Hospitalist Physical - Physical exam Narrative exam: VITAL SIGNS: Reviewed. GENERAL: The patient appeared well nourished and normally developed. Vital signs as documented. HEAD: No signs of head trauma. EYES: Pupils are equal. Extraocular motions intact. EARS: Hearing grossly intact. MOUTH: Oropharynx is normal. NECK: No adenopathy, no JVD. CHEST: Chest with expiratory wheezes and greater than expiratory. CARDIAC: Tachycardic rate normal rhythm. S1 and S2, without murmurs, gallops, or rubs. VASCULAR: No Edema. Peripheral pulses normal and equal in all extremities. ABDOMEN: Soft, without detectable tenderness. No sign of distention. No rebound or guarding, and no masses palpated. Bowel Sounds normal. MUSCULOSKELETAL: Good range of motion of all major joints. Extremities without clubbing, cyanosis or edema. NEUROLOGIC EXAM: Alert and oriented x 3. No focal sensory or strength deficits. Speech normal. Follows commands. PSYCHIATRIC: Mood normal. SKIN: No rash or lesions. - Constitutional Vitals: Temp Pulse Resp BP Pulse Ox 98.1 F 90 16 104/59 95 11/11/17 12:32 11/11/17 12:38 11/11/17 12:38 11/11/17 12:32 11/11/17 12:32 General appearance: Present: no acute distress, well-nourished Results - Labs CBC & Chem 7: 11/10/17 07:22 11/10/17 07:22 Labs: Laboratory Last Values WBC 8.6 K/mm3 (4.5-11.0) 11/10/17 07:22 RBC 5.07 M/mm3 (3.65-5.03) H 11/10/17 07:22 Hgb 11.5 gm/dl (10.1-14.3) 11/10/17 07:22 Hct 37.0 % (30.3-42.9) 11/10/17 07:22 MCV 73 fl (79-97) L 11/10/17 07:22 MCH 23 pg (28-32) L 11/10/17 07:22 MCHC 31 % (30-34) 11/10/17 07:22 RDW 20.6 % (13.2-15.2) H 11/10/17 07:22 Plt Count 284 K/mm3 (140-440) 11/10/17 07:22 Lymph % (Auto) 15.6 % (13.4-35.0) 11/10/17 07:22 [place] % (Auto) 7.7 % (0.0-7.3) H 11/10/17 07:22 Eos % (Auto) 0.0 % (0.0-4.3) 11/10/17 07:22 Baso % (Auto) 0.1 % (0.0-1.8) 11/10/17 07:22 Lymph # 1.3 K/mm3 (1.2-5.4) 11/10/17 07:22 [place] # 0.7 K/mm3 (0.0-0.8) 11/10/17 07:22 Eos # 0.0 K/mm3 (0.0-0.4) 11/10/17 07:22 Baso # 0.0 K/mm3 (0.0-0.1) 11/10/17 07:22 Seg Neutrophils % 76.6 % (40.0-70.0) H 11/10/17 07:22 Seg Neutrophils # 6.6 K/mm3 (1.8-7.7) 11/10/17 07:22 Sodium 140 mmol/L (137-145) 11/10/17 07:22 Potassium 4.3 mmol/L (3.6-5.0) 11/10/17 07:22 Chloride 99.8 mmol/L (98-107) 11/10/17 07:22 Carbon Dioxide 23 mmol/L (22-30) 11/10/17 07:22 Anion Gap 22 mmol/L 11/10/17 07:22 BUN 10 mg/dL (7-17) 11/10/17 07:22 Creatinine 0.5 mg/dL (0.7-1.2) L 11/10/17 07:22 Estimated GFR > 60 ml/min 11/10/17 07:22 BUN/Creatinine Ratio 20 % 11/10/17 07:22 Glucose 130 mg/dL (65-100) H 11/10/17 07:22 Hemoglobin A1c 5.7 % (4-6) 11/10/17 07:22 Calcium 9.2 mg/dL (8.4-10.2) 11/10/17 07:22 Total Bilirubin 0.30 mg/dL (0.1-1.2) 11/10/17 07:22 Direct Bilirubin < 0.2 mg/dL (0-0.2) 11/09/17 09:21 Indirect Bilirubin 0.1 mg/dL 11/09/17 09:21 AST 17 units/L (5-40) 11/10/17 07:22 ALT 10 units/L (7-56) 11/10/17 07:22 Alkaline Phosphatase 51 units/L (35-129) 11/10/17 07:22 Total Protein 6.8 g/dL (6.3-8.2) 11/10/17 07:22 Albumin 4.1 g/dL (3.9-5) 11/10/17 07:22 Albumin/Globulin Ratio 1.5 % 11/10/17 07:22 Urine Color Yellow (Yellow) 11/09/17 19:14 Urine Turbidity Clear (Clear) 11/09/17 19:14 Urine pH 5.0 (5.0-7.0) 11/09/17 19:14 Ur Specific [place] 1.024 (1.003-1.030) 11/09/17 19:14 Urine Protein <15 mg/dl mg/dL (Negative) 11/09/17 19:14 Urine Glucose (UA) Neg mg/dL (Negative) 11/09/17 19:14 Urine Ketones Tr mg/dL (Negative) 11/09/17 19:14 Urine Blood Neg (Negative) 11/09/17 19:14 Urine Nitrite Neg (Negative) 11/09/17 19:14 Ur Reducing Substances Not Reportable 11/09/17 19:14 Urine Bilirubin Neg (Negative) 11/09/17 19:14 Urine Ictotest Not Reportable 11/09/17 19:14 Urine Urobilinogen 2.0 mg/dL (<2.0) 11/09/17 19:14 Ur Leukocyte Esterase Neg (Negative) 11/09/17 19:14 Urine WBC (Auto) 2.0 /HPF (0.0-6.0) 11/09/17 19:14 Urine RBC (Auto) 2.0 /HPF (0.0-6.0) 11/09/17 19:14 U Epithel Cells (Auto) 4.0 /HPF (0-13.0) 11/09/17 19:14 Urine Mucus Few /HPF 11/09/17 19:14 Urine HCG, Qual Negative (Negative) 11/09/17 19:14 - Imaging and Cardiology Chest x-ray: image reviewed (no acute pathology)
[2017-11-12] MEDS: ATROVENT IH SCH ×4 (02:25→20:12)
[2017-11-12] MEDS: XOPENEX IH SCH ×4 (02:25→20:12)
[2017-11-12] MEDS: HYDROMET PO PRN ×3 (08:05→22:15)
--- NOTE | 2017-11-12 11:03 | Consultation ---
History of Present Illness Consult date: 11/12/17 Requesting physician: RAYNE DE PAZ Consult reason: tachycardia History of present illness: The pt is a 22 YO female with a past medical history significant for asthma. She is previously unknown to our practice. She presented with complaints of progressively worsening SOB and has been admitted for treatment of asthma exacerbation. Since admission, she has been noted to have sinus tachycardia and one bout of SVT (HR 170s) was seen on tele on 11/10/2017 and thus cardiology has been consulted. There is no 12-lead ECG on the chart. Pt denies any chest pain, palpitations, n/v, diaphoresis, dizziness or syncope. She denies any prior cardiac issues or cardiac evaluation. Past History Past Medical History: other (asthma) Past Surgical History: No surgical history Social history: denies: smoking, alcohol abuse, prescription drug abuse Family history: other (asthma) Medications and Allergies Allergies Allergy/AdvReac Type Severity Reaction Status Date / Time No Known Allergies Allergy Verified 10/03/17 09:27 Home Medications Medication Instructions Recorded Confirmed Last Taken Type No Known Home Medications [No 11/11/17 11/11/17 Unknown History Reported Home Medications] Active Meds: Active Medications Acetaminophen (Tylenol) 650 mg PO Q4H PRN PRN Reason: Pain, Mild (1-3) Last Admin: 11/10/17 01:55 Dose: 650 mg Arformoterol Tartrate (Brovana Nebu) 15 mcg IH Q12HRT [facility] Last Admin: 11/11/17 22:47 Dose: Not Given Budesonide (Pulmicort) 0.25 mg IH Q12HRT [facility] Last Admin: 11/11/17 21:12 Dose: Not Given Hydrocodone Bit/Homatropine Methylb (Hydromet) 5 ml PO Q6H PRN PRN Reason: Cough Last Admin: 11/11/17 11:26 Dose: 5 ml Ipratropium [place] (Atrovent) 0.5 mg IH Q6HRT [facility] Last Admin: 11/12/17 02:25 Dose: 0.5 mg Levalbuterol HCl (Xopenex) 0.63 mg IH PRN PRN PRN Reason: Shortness Of Breath Levalbuterol HCl (Xopenex) 1.25 mg IH Q6HRT [facility] Last Admin: 11/12/17 02:25 Dose: 1.25 mg Methylprednisolone Sodium Succinate (Solu-Medrol) 40 mg IV Q8HR [facility] Last Admin: 11/12/17 05:08 Dose: 40 mg Montelukast Sodium (Singulair) 10 mg PO QHS [facility] Last Admin: 11/11/17 21:41 Dose: 10 mg Review of Systems Constitutional: no weight loss, no weight gain, no fever, no chills, no sweats Ears, nose, mouth and throat: no ear pain, no nose pain, no sinus pressure, no sinus pain Cardiovascular: shortness of breath, no chest pain, no orthopnea, no palpitations, no rapid/irregular heart beat, no edema, no syncope, no lightheadedness, no high blood pressure, no leg edema Respiratory: shortness of breath, wheezing, no cough, no congestion, no pain on inspiration Gastrointestinal: no abdominal pain, no nausea, no vomiting, no diarrhea, no constipation, no change in bowel habits Genitourinary Female: no pelvic pain, no flank pain, no menorrhagia, no dysuria , no urinary frequency, no urgency Musculoskeletal: no neck stiffness, no neck pain, no shooting arm pain, no arm numbness/tingling, no low back pain, no shooting leg pain, no leg numbness/ tingling, no redness of joints Integumentary: no rash, no pruritis, no redness, no sores, no wounds Neurological: no head injury, no paralysis, no weakness, no parathesias, no numbness, no tingling, no seizures, no syncope Psychiatric: no anxiety Endocrine: no cold intolerance, no heat intolerance Hematologic/Lymphatic: no easy bruising, no easy bleeding, no lymphadenopathy Allergic/Immunologic: no urticaria, no wheezing, no persistent infections Physical Examination Vital Signs Temp Pulse Resp BP Pulse Ox 98.2 F 108 H 20 137/78 98 11/09/17 04:11 11/09/17 04:11 11/09/17 04:11 11/09/17 04:11 11/09/17 04:11 General appearance: no acute distress HEENT: Positive: PERRL, Normocephaly, Mucus Membranes Moist Neck: Positive: neck supple, trachea midline Cardiac: Positive: Reg Rate and Rhythm, S1/S2 Lungs: Positive: Wheezes (fine) Neuro: Positive: Grossly Intact Abdomen: Positive: Soft. Negative: Tender Skin: Positive: Clear. Negative: Rash, Wound Musculoskeletal: No Fluid Collection, No Pain, Normal Range of Motion Extremities: Absent: edema Results 11/10/17 07:22 11/10/17 07:22 - Imaging and Cardiology Echo: pending EKG: pending Assessment and Plan Assessment: Transient SVT - suspect precipitated by asthma exacerbation and treatment Sinus tachycardia Asthma exacerbation Plan: Obtain echo. Obtain 12-lead EKG. Obtain thyroid profile and serum Mg. Avoid BB at this time in setting of asthma exacerbation. Cont tele. Assessment and plan reviewed with pt at bedside. The patient has been seen in conjunction with Dr. Andrade who agrees with the assessment and plan of care.
[2017-11-12] MEDS: BROVANA NEBU IH SCH ×2 (11:04→20:12)
[2017-11-12] MEDS: PULMICORT IH SCH ×2 (13:30→20:12)
--- NOTE | 2017-11-12 15:41 | Progress Note ---
Assessment and Plan Assessment and plan: 22-year-old admitted with asthma exacerbation. - Asthma Exacerbation Bronchodilators Stat LABA,PAULA iv solumedrol iv Levaquin -Presumed chronic sinus tachycardia * Concern for developing cardiomyopathy although tachycardia could be due to underlying asthma. Cardiology following - Hyperglycemia Likely steriod induced A1c SS1 - DVT PPX with SCD Anticipated discharge after cardiac work up completed History Interval history: Patient seen and examined. New new issues overnight. Labs and nursing notes reviewed. Hospitalist Physical - Constitutional Vitals: Temp Pulse Resp BP Pulse Ox 98.7 F 103 H 18 124/73 95 11/12/17 12:03 11/12/17 12:03 11/12/17 12:03 11/12/17 12:03 11/12/17 12:03 General appearance: Present: no acute distress, well-nourished - EENT Eyes: Present: PERRL, EOM intact ENT: hearing intact, clear oral mucosa - Neck Neck: Present: supple, normal ROM - Respiratory Respiratory effort: normal Respiratory: bilateral: CTA - Cardiovascular Rhythm: regular Heart Sounds: Present: S1 & S2 - Extremities Extremities: no ischemia, No edema - Abdominal General gastrointestinal: soft, non-tender, non-distended - Integumentary Integumentary: Present: clear, warm, dry - Psychiatric Psychiatric: appropriate mood/affect, cooperative - Neurologic Neurologic: CNII-XII intact, moves all extremities - Allied Health Allied health notes reviewed: nursing Results - Labs CBC & Chem 7: 11/10/17 07:22 11/10/17 07:22 Labs: Laboratory Last Values WBC 8.6 K/mm3 (4.5-11.0) 11/10/17 07:22 RBC 5.07 M/mm3 (3.65-5.03) H 11/10/17 07:22 Hgb 11.5 gm/dl (10.1-14.3) 11/10/17 07:22 Hct 37.0 % (30.3-42.9) 11/10/17 07:22 MCV 73 fl (79-97) L 11/10/17 07:22 MCH 23 pg (28-32) L 11/10/17 07:22 MCHC 31 % (30-34) 11/10/17 07:22 RDW 20.6 % (13.2-15.2) H 11/10/17 07:22 Plt Count 284 K/mm3 (140-440) 11/10/17 07:22 Lymph % (Auto) 15.6 % (13.4-35.0) 11/10/17 07:22 [place] % (Auto) 7.7 % (0.0-7.3) H 11/10/17 07:22 Eos % (Auto) 0.0 % (0.0-4.3) 11/10/17 07:22 Baso % (Auto) 0.1 % (0.0-1.8) 11/10/17 07:22 Lymph # 1.3 K/mm3 (1.2-5.4) 11/10/17 07:22 [place] # 0.7 K/mm3 (0.0-0.8) 11/10/17 07:22 Eos # 0.0 K/mm3 (0.0-0.4) 11/10/17 07:22 Baso # 0.0 K/mm3 (0.0-0.1) 11/10/17 07:22 Seg Neutrophils % 76.6 % (40.0-70.0) H 11/10/17 07:22 Seg Neutrophils # 6.6 K/mm3 (1.8-7.7) 11/10/17 07:22 Sodium 140 mmol/L (137-145) 11/10/17 07:22 Potassium 4.3 mmol/L (3.6-5.0) 11/10/17 07:22 Chloride 99.8 mmol/L (98-107) 11/10/17 07:22 Carbon Dioxide 23 mmol/L (22-30) 11/10/17 07:22 Anion Gap 22 mmol/L 11/10/17 07:22 BUN 10 mg/dL (7-17) 11/10/17 07:22 Creatinine 0.5 mg/dL (0.7-1.2) L 11/10/17 07:22 Estimated GFR > 60 ml/min 11/10/17 07:22 BUN/Creatinine Ratio 20 % 11/10/17 07:22 Glucose 130 mg/dL (65-100) H 11/10/17 07:22 Hemoglobin A1c 5.7 % (4-6) 11/10/17 07:22 Calcium 9.2 mg/dL (8.4-10.2) 11/10/17 07:22 Magnesium 2.00 mg/dL (1.7-2.3) 11/12/17 13:26 Total Bilirubin 0.30 mg/dL (0.1-1.2) 11/10/17 07:22 Direct Bilirubin < 0.2 mg/dL (0-0.2) 11/09/17 09:21 Indirect Bilirubin 0.1 mg/dL 11/09/17 09:21 AST 17 units/L (5-40) 11/10/17 07:22 ALT 10 units/L (7-56) 11/10/17 07:22 Alkaline Phosphatase 51 units/L (35-129) 11/10/17 07:22 Total Protein 6.8 g/dL (6.3-8.2) 11/10/17 07:22 Albumin 4.1 g/dL (3.9-5) 11/10/17 07:22 Albumin/Globulin Ratio 1.5 % 11/10/17 07:22 TSH 3.090 mlU/mL (0.270-4.200) 11/12/17 13:26 Free T4 0.70 ng/dL (0.76-1.46) L 11/12/17 13:26 Urine Color Yellow (Yellow) 11/09/17 19:14 Urine Turbidity Clear (Clear) 11/09/17 19:14 Urine pH 5.0 (5.0-7.0) 11/09/17 19:14 Ur Specific [place] 1.024 (1.003-1.030) 11/09/17 19:14 Urine Protein <15 mg/dl mg/dL (Negative) 11/09/17 19:14 Urine Glucose (UA) Neg mg/dL (Negative) 11/09/17 19:14 Urine Ketones Tr mg/dL (Negative) 11/09/17 19:14 Urine Blood Neg (Negative) 11/09/17 19:14 Urine Nitrite Neg (Negative) 11/09/17 19:14 Ur Reducing Substances Not Reportable 11/09/17 19:14 Urine Bilirubin Neg (Negative) 11/09/17 19:14 Urine Ictotest Not Reportable 11/09/17 19:14 Urine Urobilinogen 2.0 mg/dL (<2.0) 11/09/17 19:14 Ur Leukocyte Esterase Neg (Negative) 11/09/17 19:14 Urine WBC (Auto) 2.0 /HPF (0.0-6.0) 11/09/17 19:14 Urine RBC (Auto) 2.0 /HPF (0.0-6.0) 11/09/17 19:14 U Epithel Cells (Auto) 4.0 /HPF (0-13.0) 11/09/17 19:14 Urine Mucus Few /HPF 11/09/17 19:14 Urine HCG, Qual Negative (Negative) 11/09/17 19:14
[2017-11-12] MEDS: SINGULAIR PO SCH (22:14)
[2017-11-13] MEDS: ATROVENT IH SCH ×3 (03:05→14:24)
[2017-11-13] MEDS: XOPENEX IH SCH ×3 (03:05→14:24)
[2017-11-13] MEDS: BROVANA NEBU IH SCH (08:04)
[2017-11-13] MEDS: PULMICORT IH SCH (08:18)
--- NOTE | 2017-11-13 12:16 | Discharge Summary ---
Providers - Providers Date of Admission: 11/09/17 10:59 Date of discharge: 11/13/17 Attending physician: RILEY DANIELLE MD 11/11/17 10:47 Consult to Physician [CONS] Routine Consulting Provider: LETY TAY Reason For Exam: persistent tachycardia Place consult to:: Dr. Ina Tay Notified:: Sarah SNYDER Phone number called:: Was contact made?: Yes If yes, spoke with:: [facility]-answering service Time called:: 08:01 Primary care physician: MEDARDO PATTERSON Hospitalization Condition: Good Pertinent studies: Chest X-Ray was normal. Echocardiogram showed EF of 60-65% with normal systolic function. Hospital course: Patient is a 22-year-old lady was a history of asthma, started having progressively worsening shortness of breath with cough but no fever. Using multiple breathing treatments at home without improvement of her symptoms. Patient presented to the emergency department and was given more breathing treatment and solu Medrol and magnesium. Symptoms persisted. Patient denies any nausea vomiting, fever or chills. -Patient was treated with bronchodilators, Singulair and IV steroids after which her symptoms improved. -Patient became tachycardic which was likely due to her asthma exacerbation. Cardiology was consulted and performed an echo which was normal and no further testing was required. -Patient was clinically stable for discharge home. Discharge Diagnoses Asthma Exacerbation Sinus Tachycardia Hyperglycemia DVT Prophylaxis Disposition: TO HOME OR SELFCARE Time spent for discharge: 32 minutes Core Measure Documentation - Palliative Care Palliative Care/ Comfort Measures: Not Applicable - Core Measures Any of the following diagnoses?: none Exam - Constitutional Vitals: Temp Pulse Resp BP Pulse Ox 98 F 80 18 116/78 95 11/13/17 07:55 11/13/17 08:18 11/13/17 08:18 11/13/17 07:53 11/13/17 04:03 General appearance: Present: no acute distress, well-nourished - EENT Eyes: Present: PERRL ENT: hearing intact, clear oral mucosa - Neck Neck: Present: supple, normal ROM - Respiratory Respiratory effort: normal Respiratory: bilateral: CTA - Cardiovascular Heart Sounds: Present: S1 & S2. Absent: rub, click - Extremities Extremities: pulses symmetrical, No edema - Abdominal General gastrointestinal: Present: soft, non-tender, non-distended, normal bowel sounds - Integumentary Integumentary: Present: clear, warm, dry - Musculoskeletal Musculoskeletal: gait normal, strength equal bilaterally - Psychiatric Psychiatric: appropriate mood/affect, intact judgment & insight - Neurologic Neurologic: CNII-XII intact, moves all extremities - Allied Health Allied health notes reviewed: nursing Plan Activity: no restrictions Weight Bearing Status: Full Weight Bearing Diet: regular Follow up with: PRIMARY CARE, [Referring] - 7 Days Forms: Work/School Release Form Prescriptions: Montelukast [Singulair] 10 mg PO QHS #30 tablet Albuterol Sulfate [Proventil Hfa] 6.7 gm IH Q4H PRN #1 hfa.aer.[email or web address] PRN Reason: Shortness Of Breath Arformoterol Nebu [Brovana Nebu] 15 mcg IH Q12HRT #60 ml Budesonide [Pulmicort Respules] 0.25 mg IH Q12HRT #60 nebu Fluticasone/Salmeterol [Advair Diskus 250-50 mcg] 1 puff IH BID #1 disk.w.dev Inhaler, Assist Devices [Space Chamber Plus] 1 each MC Q4H PRN #1 spacer PRN Reason: Shortness Of Breath Levalbuterol [Xopenex] 0.63 mg IH PRN PRN #60 nebu PRN Reason: Shortness Of Breath Nebulizer [Aeroneb Go Nebulizer] 1 each MC Q4H PRN #1 each PRN Reason: Shortness Of Breath predniSONE [Deltasone] 10 mg PO .TAPER #21 tab
--- NOTE | 2017-11-13 12:17 | Progress Note ---
Assessment and Plan Assessment: Transient SVT - suspect precipitated by asthma exacerbation and treatment Sinus tachycardia Asthma exacerbation Plan: Echo showed EF 60-65%. Thyroid function WNL. Suspect transient SVT episode precipitated by asthma exacerbation and treatment. Stable cardiac status. Patient may be discharged from a cardiac standpoint. The patient has been seen in conjunction with Dr. Andrade who agrees with the assessment and plan of care. Subjective Date of service: 11/13/17 Principal diagnosis: asthma exacerbation, paroxysmal SVT Interval history: The patient is resting comfortably in bed. No new complaints. Wants to go home. Sinus rhythm-sinus tach on the monitor with HR 90s-100s. Objective Last Vital Signs Temp 98.0 F 11/13/17 11:34 Pulse 100 H 11/13/17 11:34 Resp 18 11/13/17 11:34 BP 123/70 11/13/17 11:34 Pulse Ox 98 11/13/17 11:34 - Physical Examination General: No Apparent Distress HEENT: Positive: PERRL, Normocephaly, Mucus Membranes Moist Neck: Positive: neck supple, trachea midline Cardiac: Positive: Reg Rate and Rhythm, S1/S2 Lungs: Positive: clear to auscultation Neuro: Positive: Grossly Intact Abdomen: Positive: Soft. Negative: Tender Skin: Positive: Clear. Negative: Rash, Wound Musculoskeletal: No Fluid Collection, No Pain, Normal Range of Motion Extremities: Absent: edema - Imaging and Cardiology EKG: report reviewed Echo: report reviewed (EF 60-65%) - Telemetry EKG Rhythm: Sinus Rhythm
[2017-11-13 12:21] VITALS: BP 123/70
== END 2017-11-13 15:15 | disposition home or self-care (01) | DRG 202 ==
LOC: ED 02:21 → 4A 10:59
PROVIDERS: ADMIT Family Medicine; ATTEND Internal Medicine
DX: J45.901 Unspecified asthma with (acute) exacerbation (principal); I47.1 Supraventricular tachycardia; J06.9 Acute upper respiratory infection, unspecified; R73.9 Hyperglycemia, unspecified; Z82.5 Family history of asthma and other chronic lower respiratory diseases
CPT/HCPCS: 36415; 71046; 80048; 80053; 80074; 81001; 81025; 83036; 83735; 84439; 84443; 85025; 93005; 93010; 93306; 94640; 96365; 96366; 96375; J1956; J2920; J2930; J3475

== ENCOUNTER 2017-12-27 19:13 | Inpatient (IN) | payer SELFPAY ==
[2017-12-27] MEDS ORDERED: DUONEB *Not for PRN Use IH ONE ×2 (19:42→21:03)
--- NOTE | 2017-12-28 00:33 | Emergency Department Report ---
ED Asthma HPI - General Chief Complaint: Adult Asthma Stated Complaint: ASTHMA Time Seen by Provider: 12/28/17 00:26 Source: patient Mode of arrival: Ambulatory Limitations: No Limitations - History of Present Illness Initial Comments: 22-year-old -[place] female with known history of asthma comes in today for complaint of shortness of breathing and wheezing. Patient reports she has been dealing with this for the last 2 days. She is using nebulizer treatments at home without much relief. Patient denies any URI signs or symptoms. She denies any fever chills no nausea no vomiting she does admit to a cough. She's had [address] Pacheco in triage reports she feels like she is opening up still have some tightness. MD Complaint: "asthma attack", shortness of breath, wheezing -: days(s) (2) Severity: moderate Context: none known Associated Symptoms: none Treatments Prior to Arrival: inhaled bronchodilator - Related Data Previous Rx's Medication Instructions Recorded Last Taken Type Albuterol Sulfate [Proventil Hfa] 6.7 gm IH Q4H PRN #1 hfa.aer.ad 11/13/17 Unknown Rx Arformoterol Nebu [Brovana Nebu] 15 mcg IH Q12HRT #60 ml 11/13/17 Unknown Rx Budesonide [Pulmicort Respules] 0.25 mg IH Q12HRT #60 nebu 11/13/17 Unknown Rx Fluticasone/Salmeterol [Advair 1 puff IH BID #1 disk.w.dev 11/13/17 Unknown Rx Diskus 250-50 mcg] Inhaler, Assist Devices [Space 1 each MC Q4H PRN #1 spacer 11/13/17 Unknown Rx Chamber Plus] Nebulizer [Aeroneb Go Nebulizer] 1 each MC Q4H PRN #1 each 11/13/17 Unknown Rx Levalbuterol [Xopenex] 0.63 mg IH PRN PRN #60 nebu 12/28/17 Unknown Rx Montelukast [Singulair] 10 mg PO QHS #30 tablet 12/28/17 Unknown Rx predniSONE [Deltasone] 10 mg PO .TAPER #21 tab 12/28/17 Unknown Rx Allergies Allergy/AdvReac Type Severity Reaction Status Date / Time No Known Allergies Allergy Verified 10/03/17 09:27 ED Review of Systems ROS: Stated complaint: ASTHMA Other details as noted in HPI Constitutional: denies: chills, fever Eyes: denies: eye pain, eye discharge, vision change ENT: denies: ear pain, throat pain Respiratory: cough, shortness of breath, wheezing Cardiovascular: denies: chest pain, palpitations Endocrine: no symptoms reported Gastrointestinal: denies: abdominal pain, nausea, diarrhea Genitourinary: denies: urgency, dysuria, discharge Musculoskeletal: denies: back pain, joint swelling, arthralgia Skin: denies: rash, lesions Neurological: denies: headache, weakness, paresthesias Psychiatric: denies: anxiety, depression Hematological/Lymphatic: denies: easy bleeding, easy bruising ED Past Medical Hx - Past Medical History Hx Asthma: Yes Additional medical history: Vaginal delivery 12-06-2015 - Social History Smoking Status: Never Smoker Substance Use Type: None - Medications Home Medications: Home Medications Medication Instructions Recorded Confirmed Last Taken Type Albuterol Sulfate [Proventil Hfa] 6.7 gm IH Q4H PRN #1 hfa.aer.ad 11/13/17 Unknown Rx Arformoterol Nebu [Brovana Nebu] 15 mcg IH Q12HRT #60 ml 11/13/17 Unknown Rx Budesonide [Pulmicort Respules] 0.25 mg IH Q12HRT #60 nebu 11/13/17 Unknown Rx Fluticasone/Salmeterol [Advair 1 puff IH BID #1 disk.w.dev 11/13/17 Unknown Rx Diskus 250-50 mcg] Inhaler, Assist Devices [Space 1 each MC Q4H PRN #1 spacer 11/13/17 Unknown Rx Chamber Plus] Nebulizer [Aeroneb Go Nebulizer] 1 each MC Q4H PRN #1 each 11/13/17 Unknown Rx Levalbuterol [Xopenex] 0.63 mg IH PRN PRN #60 nebu 12/28/17 Unknown Rx Montelukast [Singulair] 10 mg PO QHS #30 tablet 12/28/17 Unknown Rx predniSONE [Deltasone] 10 mg PO .TAPER #21 tab 12/28/17 Unknown Rx ED Physical Exam - General Limitations: No Limitations General appearance: alert, in no apparent distress - Head Head exam: Present: atraumatic, normocephalic - Eye Eye exam: Present: normal appearance - ENT ENT exam: Present: mucous membranes moist - Neck Neck exam: Present: normal inspection - Respiratory Respiratory exam: Present: wheezes, rhonchi ED Course Vital Signs 12/27/17 12/27/17 12/28/17 19:39 21:33 01:37 Temperature 98.2 F Pulse Rate 98 H Pulse Rate [ 111 H 127 H Anterior Bilateral Throughout] Respiratory 20 Rate Respiratory 18 20 Rate [Anterior Bilateral Throughout] Blood Pressure 132/77 O2 Sat by Pulse 97 Oximetry - Reevaluation(s) Reevaluation #1: 12/28/17 03:28 Patient reports she feels much better. Patient still has some rhonchi. Wheezing has improved ED Medical Decision Making - Medical Decision Making Patient has been evaluated by this provider fast track. Patient's had 2 duo nebs and jorge med IM. She is still wheezing with bronchitis ordered chest x-ray and albuterol neb. Discussed with patient I would discharge her on Xopenex, Singulair, prednisone. If symptoms persist or gets worse she needs to follow back up in the emergency room. Patient verbalized understanding Critical care attestation.: If time is entered above; I have spent that time in minutes in the direct care of this critically ill patient, excluding procedure time. ED Disposition Clinical Impression: Wheezing, Asthma exacerbation Disposition: DC-01 TO HOME OR SELFCARE Is pt being admited?: No Does the pt Need Aspirin: No Condition: Stable Additional Instructions: If symptoms persist or gets worse please follow back up in the emergency room. Prescriptions: Montelukast [Singulair] 10 mg PO QHS #30 tablet Levalbuterol [Xopenex] 0.63 mg IH PRN PRN #60 nebu PRN Reason: Shortness Of Breath predniSONE [Deltasone] 10 mg PO .TAPER #21 tab Referrals: MEDARDO PATTERSON MD [Primary Care Provider] - 3-5 Days Forms: Work/School Release Form(ED)
[2017-12-28] MEDS: PROVENTIL IH ONE ×2 (01:04→01:06)
[2017-12-28] MEDS ORDERED: XOPENEX IH ONE ×2 (01:17→03:59)
--- NOTE | 2017-12-28 01:23 | XRay Report ---
FINAL REPORT EXAM: XR CHEST ROUTINE 2V HISTORY: wheezing ?2 days not responding to outpatient TECHNIQUE: 2 views of the chest. PRIORS: 11/09/2017 FINDINGS: The cardiomediastinal silhouette appears normal. The lungs are clear. The bones and soft tissues are unremarkable. IMPRESSION: No evidence of acute cardiopulmonary disease
[2017-12-28] MEDS ORDERED: MAGNESIUM SULFATE 2GM/50ML 2 GM/50 ML BAG IV ONE (01:47)
[2017-12-28] MEDS ORDERED: ATROVENT IH ONE (03:59)
[2017-12-28] MEDS ORDERED: NORCO 5/325 PO PRN (06:01)
[2017-12-28] MEDS ORDERED: SODIUM CHLORIDE FLUSH SYRINGE 10 ML IV PRN (06:01)
[2017-12-28] MEDS ORDERED: ZOFRAN IV PRN (06:01)
[2017-12-28] MEDS ORDERED: TYLENOL PO PRN (06:01)
--- NOTE | 2017-12-28 06:11 | History and Physical Report ---
History of Present Illness Date of examination: 12/28/17 Chief complaint: Difficulty breathing History of present illness: Patient is a 22 year old -[place] female with medical hx significant for asthma, who presented to the ED on account of 2 days history of worsening shortness of breath. She has associated pleuritic chest pain and cough initially productive of yellowish sputum, but currently dry. She denies fever or chills, leg swelling, orthopnea or PND. No headaches, sore throats, runny nose, nausea or vomiting, dizziness, syncope or loss of consciousness. Despite receiving multiple treatments in the ED, patient continued to experience severe shortness of breath with near syncope. Patient stated that she usually have asthma attacks every 2 months and that she is unable to afford inhaled steroid. No reported history of ill contacts. Past History Past Medical History: other (asthma) Past Surgical History: No surgical history Social history: other (she denies tobacco, alcohol or illicit drug use) Family history: other (reviewed and noncontributory) Medications and Allergies Allergies Allergy/AdvReac Type Severity Reaction Status Date / Time No Known Allergies Allergy Verified 10/03/17 09:27 Home Medications Medication Instructions Recorded Confirmed Last Taken Type Albuterol Sulfate [Proventil Hfa] 6.7 gm IH Q4H PRN #1 hfa.aer.ad 11/13/17 Unknown Rx Arformoterol Nebu [Brovana Nebu] 15 mcg IH Q12HRT #60 ml 11/13/17 Unknown Rx Budesonide [Pulmicort Respules] 0.25 mg IH Q12HRT #60 nebu 11/13/17 Unknown Rx Fluticasone/Salmeterol [Advair 1 puff IH BID #1 disk.w.dev 11/13/17 Unknown Rx Diskus 250-50 mcg] Inhaler, Assist Devices [Space 1 each MC Q4H PRN #1 spacer 11/13/17 Unknown Rx Chamber Plus] Nebulizer [Aeroneb Go Nebulizer] 1 each MC Q4H PRN #1 each 11/13/17 Unknown Rx Levalbuterol [Xopenex] 0.63 mg IH PRN PRN #60 nebu 12/28/17 Unknown Rx Montelukast [Singulair] 10 mg PO QHS #30 tablet 12/28/17 Unknown Rx predniSONE [Deltasone] 10 mg PO .TAPER #21 tab 12/28/17 Unknown Rx Active Meds: Active Medications Acetaminophen (Tylenol) 650 mg PO Q4H PRN PRN Reason: Pain MILD(1-3)/Fever >100.5/SPARKS Acetaminophen/Hydrocodone Bitart ([place] 5/325) 1 each PO Q6H PRN PRN Reason: Pain, Moderate (4-6) Guaifenesin (Mucinex Er) 600 mg PO Q12H [place] Levalbuterol HCl (Xopenex) 1.25 mg IH Q6H [place] Methylprednisolone Sodium Succinate (Solu-Medrol) 60 mg IV Q8H [place] Ondansetron HCl (Zofran) 4 mg IV Q8H PRN PRN Reason: Nausea And Vomiting Sodium Chloride (Sodium Chloride Flush Syringe 10 Ml) 10 ml IV BID [place] Sodium Chloride (Sodium Chloride Flush Syringe 10 Ml) 10 ml IV PRN PRN PRN Reason: LINE FLUSH Review of Systems All systems: negative (except as documented in the HPI, all other systems were reviewed and negative.) Exam - Constitutional Vitals: Temp Pulse Resp BP Pulse Ox 98.2 F 127 H 20 130/79 97 12/27/17 19:39 12/28/17 05:04 12/28/17 05:04 12/28/17 05:04 12/28/17 05:04 General appearance: Present: no acute distress, well-nourished - EENT Eyes: Present: PERRL, EOM intact ENT: hearing intact, clear oral mucosa - Neck Neck: Present: supple, normal ROM - Respiratory Respiratory effort: normal Respiratory: bilateral: diminished, wheezing (expiratory) - Cardiovascular Rhythm: other (tachycardia with regular rhythm) Heart Sounds: Present: S1 & S2. Absent: rub, click - Extremities Extremities: pulses symmetrical, No edema Peripheral Pulses: within normal limits - Abdominal General gastrointestinal: Present: soft, non-tender, non-distended, normal bowel sounds Female genitourinary: Present: normal - Integumentary Integumentary: Present: clear, warm, dry - Musculoskeletal Musculoskeletal: gait normal, strength equal bilaterally - Psychiatric Psychiatric: appropriate mood/affect, intact judgment & insight - Neurologic Neurologic: CNII-XII intact, moves all extremities Assessment and Plan Assessment and plan: Acute severe asthma exacerbation, probably secondary to acute bronchitis -We will place patient on IV steroid, neb treatments and Mucinex Prophylaxis -DVT prophylaxis with SCD 30 minutes spent in coordinating care
[2017-12-28 06:57] LABS: Basophils % (Auto) 0.1 % (0.0-1.8); Hematocrit 36.7 % (30.3-42.9); Hemoglobin 11.5 gm/dl (10.1-14.3); Lymphocytes # (Auto) 0.7 K/mm3 (1.2-5.4); Lymphocytes % (Auto) 10.1 % (13.4-35.0); Mean Corpuscular HGB Conc 31 % (30-34); Mean Corpuscular Volume 73 fl (79-97); Monocytes # (Auto) 0.1 K/mm3 (0.0-0.8); Monocytes % (Auto) 1.5 % (0.0-7.3); Platelet Count 337 K/mm3 (140-440); Red Blood Count 5.06 M/mm3 (3.65-5.03)
[2017-12-28 07:08] LABS: Mean Corpuscular Hemoglobin 23 pg (28-32); Red Cell Distribution Width 20.2 % (13.2-15.2)
[2017-12-28 07:14] LABS: Alanine Aminotransferase 11 units/L (7-56); Albumin 4.1 g/dL (3.9-5); BUN/Creatinine Ratio 12; Blood Urea Nitrogen 6 mg/dL (7-17); Hemolysis Index 4
[2017-12-28] MEDS: MUCINEX ER PO SCH ×2 (09:44→22:21)
[2017-12-28] MEDS: SODIUM CHLORIDE FLUSH SYRINGE 10 ML IV SCH ×2 (10:07→22:22)
[2017-12-28] MEDS: XOPENEX IH SCH ×3 (10:52→20:17)
--- NOTE | 2017-12-28 19:15 | Discharge Summary ---
Providers - Providers Date of Admission: 12/28/17 05:39 Date of discharge: 12/29/17 (6 AM) Attending physician: MIRANDA FERNANDES None Primary care physician: MEDARDO PATTERSON Hospitalization Condition: Stable Hospital course: Patient had good improvement over the next 12 hours after admission to the floor patient is near asymptomatic. . Assessment and Plan Assessment and plan: Acute severe asthma exacerbation, probably secondary to acute bronchitis patient on IV steroids , neb treatments and Mucinex Prophylaxis -DVT prophylaxis with SCD Disposition: DC- TO HOME OR SELFCARE Time spent for discharge: 30 minutes Core Measure Documentation - Palliative Care Palliative Care/ Comfort Measures: Not Applicable - Core Measures Any of the following diagnoses?: none Exam - Constitutional Vitals: Temp Pulse Resp BP Pulse Ox 98.7 F 112 H 18 110/64 95 12/28/17 15:46 12/28/17 16:07 12/28/17 16:07 12/28/17 15:46 12/28/17 15:46 General appearance: Present: no acute distress, well-nourished - EENT Eyes: Present: PERRL ENT: hearing intact, clear oral mucosa - Neck Neck: Present: supple, normal ROM - Respiratory Respiratory effort: normal Respiratory: bilateral: CTA, rhonchi (scattered) - Cardiovascular Heart rate: 76 Rhythm: regular (76) Heart Sounds: Present: S1 & S2. Absent: rub, click - Extremities Extremities: no ischemia, pulses intact, pulses symmetrical, No edema Peripheral Pulses: within normal limits - Abdominal General gastrointestinal: Present: soft, non-tender, non-distended, normal bowel sounds Female genitourinary: Present: normal - Integumentary Integumentary: Present: clear, warm, dry - Musculoskeletal Musculoskeletal: gait normal, strength equal bilaterally - Psychiatric Psychiatric: appropriate mood/affect, intact judgment & insight - Neurologic Neurologic: CNII-XII intact, moves all extremities - Allied Health Allied health notes reviewed: nursing, case management Plan Activity: no restrictions Diet: regular Follow up with: MEDARDO PATTERSON MD [Primary Care Provider] - 3-5 Days Forms: Work/School Release Form(ED) Prescriptions: Levalbuterol [Xopenex] 0.63 mg IH PRN PRN #60 nebu PRN Reason: Shortness Of Breath Montelukast [Singulair] 10 mg PO QHS #30 tablet predniSONE [Deltasone] 10 mg PO .TAPER #21 tab
--- NOTE | 2017-12-28 19:18 | Event Note ---
Date: 12/28/17 Patient evaluated for asthma exacerbation Patient doing very well No wheezing Scattered rhonchi Patient to continue Xopenex and Singulair and prednisone Foul discharge in the morning. Prescriptions for Xopenex/albuterol Singulair and tapering dose of prednisone. Also cough syrup. No antibiotics.
[2017-12-29] MEDS: XOPENEX IH SCH ×2 (01:58→07:50)
[2017-12-29 07:51] VITALS: BP 131/73
[2017-12-29] MEDS: MUCINEX ER PO SCH (08:27)
== END 2017-12-29 09:00 | disposition home or self-care (01) | DRG 203 ==
LOC: ED 19:13 → 3A 12-28 05:39
PROVIDERS: ADMIT Internal Medicine; ATTEND Internal Medicine
DX: J45.901 Unspecified asthma with (acute) exacerbation (principal); Z79.51 Long term (current) use of inhaled steroids; J20.9 Acute bronchitis, unspecified
CPT/HCPCS: 36415; 71046; 80053; 85025; 94640; 94760; 96365; 96372; J2920; J2930; J3475

== ENCOUNTER 2018-03-01 03:34 | Inpatient (IN) | payer OTHER ==
[2018-03-01] MEDS ORDERED: DUONEB *Not for PRN Use IH ONE ×3 (03:39→09:02)
[2018-03-01] MEDS ORDERED: PROVENTIL IH ONE ×4 (05:37→10:33)
[2018-03-01] MEDS ORDERED: ATROVENT IH ONE ×5 (05:37→10:46)
[2018-03-01] MEDS ORDERED: MAGNESIUM SULFATE 2GM/50ML 2 GM/50 ML BAG IV ONE (05:50)
[2018-03-01] MEDS ORDERED: ZOFRAN ONE (05:54)
[2018-03-01] MEDS ORDERED: ZOFRAN IV ONE (06:25)
[2018-03-01 06:36] LABS: Mean Corpuscular HGB Conc 30 % (30-34); Mean Corpuscular Volume 76 fl (79-97); Platelet Count 265 K/mm3 (140-440); Red Blood Count 4.76 M/mm3 (3.65-5.03); Red Cell Distribution Width 19.4 % (13.2-15.2)
[2018-03-01 06:40] LABS: Hematocrit 36.3 % (30.3-42.9)
[2018-03-01 06:41] LABS: Mean Corpuscular Hemoglobin 23 pg (28-32)
--- NOTE | 2018-03-01 06:54 | XRay Report ---
FINAL REPORT EXAM: XR CHEST 1V AP HISTORY: SOB TECHNIQUE: AP portable view(s) of the chest obtained. PRIORS: 12/27/2017 FINDINGS: No mediastinal shift. Cardiac silhouette is not enlarged. No pneumothorax, effusion, or focal pulmonary opacity identified. No acute skeletal findings. IMPRESSION: No acute pulmonary finding identified.
[2018-03-01 06:55] LABS: BUN/Creatinine Ratio 17; Blood Urea Nitrogen 5 mg/dL (7-17); Calcium 8.2 mg/dL (8.4-10.2); Hemolysis Index 3
[2018-03-01 07:32] LABS: Band Neutrophils # (Manual) 0.1 K/mm3; Total Cells Counted 100
[2018-03-01 07:33] LABS: Anisocytosis 1+; Large Platelets Few; Platelet Estimate Cons
[2018-03-01] MEDS ORDERED: TYLENOL PO ONE (08:29)
--- NOTE | 2018-03-01 10:23 | Emergency Department Report ---
ED Asthma HPI - General Chief Complaint: Adult Asthma Stated Complaint: ASTHMA ATTACK Time Seen by Provider: 03/01/18 10:22 Source: patient Mode of arrival: Ambulatory Limitations: No Limitations - History of Present Illness Initial Comments: Patient complains of asthma attack, with worsening of breathing over the past 2 days. She has not had any fever chills or diaphoresis, she's had some cough, but nonproductive. Patient works at a local [employer], and reports that exposure to the heat as well as to the fumes of the grease tend to set off her episodes, and has done so over the past couple of days. Patient is under insured, cannot afford routine stabilizing medications, such as Advair, nor does she take prednisone on a regular basis. Her last hospitalization was 2 months ago, and that was her last time of her story treatment. Patient required BiPAP for respiratory support at initiation of treatment today , and she has received one 10 hour continuous round of albuterol, as well as 3 individual rounds of DuoNeb, Solu-Medrol, and 2 g of magnesium, but still has significant wheezing and shortness of breath, although she no longer needs the BiPAP. MD Complaint: "asthma attack" Onset/Timin (worsened during the night) -: Gradual, days(s), During the night Asthma History: adult onset, history of frequent attac Severity: severe Context: allergen exposure, smoke exposure, other (work-related fumes) Associated Symptoms: denies: productive cough, fever Treatments Prior to Arrival: inhaled bronchodilator - Related Data Current Asthma Therapy: inhaled bronchodilator Previous Rx's Medication Instructions Recorded Last Taken Type Albuterol Sulfate [Proventil Hfa] 6.7 gm IH Q4H PRN #1 hfa.aer.ad 11/13/17 Unknown Rx Arformoterol Nebu [Brovana Nebu] 15 mcg IH Q12HRT #60 ml 11/13/17 Unknown Rx Budesonide [Pulmicort Respules] 0.25 mg IH Q12HRT #60 nebu 11/13/17 Unknown Rx Fluticasone/Salmeterol [Advair 1 puff IH BID #1 disk.w.dev 11/13/17 Unknown Rx Diskus 250-50 mcg] Inhaler, Assist Devices [Space 1 each MC Q4H PRN #1 spacer 11/13/17 Unknown Rx Chamber Plus] Nebulizer [Aeroneb Go Nebulizer] 1 each MC Q4H PRN #1 each 11/13/17 Unknown Rx Levalbuterol [Xopenex] 0.63 mg IH PRN PRN #60 nebu 12/28/17 Unknown Rx Montelukast [Singulair] 10 mg PO QHS #30 tablet 12/28/17 Unknown Rx predniSONE [Deltasone] 10 mg PO .TAPER #21 tab 12/28/17 Unknown Rx Allergies Allergy/AdvReac Type Severity Reaction Status Date / Time No Known Allergies Allergy Verified 10/03/17 09:27 ED Review of Systems ROS: Stated complaint: ASTHMA ATTACK Other details as noted in HPI Constitutional: denies: chills, fever Eyes: denies: eye pain, eye discharge, vision change ENT: denies: ear pain, throat pain Respiratory: cough, shortness of breath, wheezing Cardiovascular: dyspnea on exertion. denies: chest pain, palpitations, syncope Endocrine: no symptoms reported Gastrointestinal: denies: abdominal pain, nausea, diarrhea Musculoskeletal: denies: back pain, joint swelling, arthralgia Skin: denies: rash, lesions Neurological: denies: headache, weakness, paresthesias Psychiatric: denies: anxiety, depression Hematological/Lymphatic: denies: easy bleeding, easy bruising ED Past Medical Hx - Past Medical History Previous Medical History?: Yes Hx Asthma: Yes Additional medical history: Vaginal delivery 12-06-2015 - Surgical History Past Surgical History?: No - Social History Smoking Status: Never Smoker Substance Use Type: None - Medications Home Medications: Home Medications Medication Instructions Recorded Confirmed Last Taken Type Albuterol Sulfate [Proventil Hfa] 6.7 gm IH Q4H PRN #1 hfa.aer.ad 11/13/17 Unknown Rx Arformoterol Nebu [Brovana Nebu] 15 mcg IH Q12HRT #60 ml 11/13/17 Unknown Rx Budesonide [Pulmicort Respules] 0.25 mg IH Q12HRT #60 nebu 11/13/17 Unknown Rx Fluticasone/Salmeterol [Advair 1 puff IH BID #1 disk.w.dev 11/13/17 Unknown Rx Diskus 250-50 mcg] Inhaler, Assist Devices [Space 1 each MC Q4H PRN #1 spacer 11/13/17 Unknown Rx Chamber Plus] Nebulizer [Aeroneb Go Nebulizer] 1 each MC Q4H PRN #1 each 11/13/17 Unknown Rx Levalbuterol [Xopenex] 0.63 mg IH PRN PRN #60 nebu 12/28/17 Unknown Rx Montelukast [Singulair] 10 mg PO QHS #30 tablet 12/28/17 Unknown Rx predniSONE [Deltasone] 10 mg PO .TAPER #21 tab 12/28/17 Unknown Rx ED Physical Exam - General Limitations: No Limitations General appearance: alert, in distress (at time of arrival, requiring BiPAP support and continuous albuterol), other (significantly improved at time of examination, but still wheezing significantly, audibly, but able to speak full sentences) - Head Head exam: Present: atraumatic, normocephalic - Eye Eye exam: Present: PERRL, EOMI - ENT ENT exam: Present: normal exam, mucous membranes moist - Neck Neck exam: Present: normal inspection, full ROM. Absent: tenderness - Respiratory Respiratory exam: Present: wheezes (course diffuse wheezes, moderate respiratory restriction), accessory muscle use. Absent: rales, rhonchi, chest wall tenderness - Cardiovascular Cardiovascular Exam: Present: regular rate, tachycardia - GI/Abdominal GI/Abdominal exam: Present: soft, normal bowel sounds. Absent: tenderness - Rectal Rectal exam: Present: deferred - Extremities Exam Extremities exam: Present: normal inspection. Absent: pedal edema - Neurological Exam Neurological exam: Present: alert, oriented X3, CN II-XII intact. Absent: motor sensory deficit - Psychiatric Psychiatric exam: Present: normal affect, normal mood - Skin Skin exam: Present: warm, dry. Absent: diaphoretic ED Course Vital Signs 03/01/18 03/01/18 03/01/18 03:39 05:34 05:38 Temperature 36.9 C Pulse Rate 125 H Pulse Rate [ 118 H Posterior Bilateral Throughout] Respiratory 14 Rate Respiratory 24 Rate [Posterior Bilateral Throughout] Blood Pressure 132/86 Blood Pressure [Left] O2 Sat by Pulse 96 87 Oximetry 03/01/18 03/01/18 03/01/18 05:45 05:53 05:54 Temperature Pulse Rate 118 H Pulse Rate [ Posterior Bilateral Throughout] Respiratory 22 20 Rate Respiratory Rate [Posterior Bilateral Throughout] Blood Pressure Blood Pressure [Left] O2 Sat by Pulse 100 100 100 Oximetry 03/01/18 03/01/18 03/01/18 06:01 06:15 06:30 Temperature Pulse Rate 110 H 115 H Pulse Rate [ Posterior Bilateral Throughout] Respiratory 23 21 Rate Respiratory Rate [Posterior Bilateral Throughout] Blood Pressure 128/77 137/74 Blood Pressure [Left] O2 Sat by Pulse 100 100 100 Oximetry 03/01/18 03/01/18 03/01/18 06:33 06:35 06:55 Temperature 37.0 C Pulse Rate 125 H Pulse Rate [ 111 H Posterior Bilateral Throughout] Respiratory 20 Rate Respiratory 20 Rate [Posterior Bilateral Throughout] Blood Pressure 137/74 Blood Pressure [Left] O2 Sat by Pulse Oximetry 03/01/18 03/01/18 03/01/18 07:00 07:15 07:31 Temperature 36.6 C Pulse Rate 115 H 118 H Pulse Rate [ Posterior Bilateral Throughout] Respiratory 17 17 Rate Respiratory Rate [Posterior Bilateral Throughout] Blood Pressure 136/89 137/74 160/85 Blood Pressure 136/89 [Left] O2 Sat by Pulse 96 94 100 Oximetry 03/01/18 03/01/18 03/01/18 07:35 07:45 08:00 Temperature Pulse Rate 109 H Pulse Rate [ Posterior Bilateral Throughout] Respiratory 26 H Rate Respiratory Rate [Posterior Bilateral Throughout] Blood Pressure 128/77 126/69 126/72 Blood Pressure [Left] O2 Sat by Pulse 99 100 100 Oximetry 03/01/18 03/01/18 08:15 08:36 Temperature Pulse Rate Pulse Rate [ Posterior Bilateral Throughout] Respiratory 15 Rate Respiratory Rate [Posterior Bilateral Throughout] Blood Pressure 126/69 Blood Pressure [Left] O2 Sat by Pulse 100 Oximetry - Reevaluation(s) Reevaluation #1: 03/01/18 10:47 Patient with significant residual respiratory impairment and significant wheezes , despite several rounds of vigorous therapy prior to examination, and patient will need continued therapy before she achieved significant resolution of her wheezes. - Consultations Consultation #1: 03/01/18 10:46 Dr. Jensen consult, and patient will be admitted to on-call hospitalist, Dr. Miles Medical Decision Making - Lab Data Result diagrams: 03/01/18 06:08 03/01/18 06:08 - Radiology Data Radiology results: report reviewed (no acute lobar consolidation, no other cardiopulmonary abnormality) - Medical Decision Making This patient with asthma, has had persistent wheezing, despite heroic measures, including Solu-Medrol, magnesium, intensive albuterol, as well as intermittent rounds of DuoNeb, and still has major wheezing and respiratory impairment although this is a considerable improvement as well. She will need admission for further continuing treatment. - Differential Diagnosis asthma, pneumonia, allergic reaction Critical Care Time: No Critical care attestation.: If time is entered above; I have spent that time in minutes in the direct care of this critically ill patient, excluding procedure time. ED Disposition Clinical Impression: Asthma exacerbation Qualifiers: Asthma severity: severe Asthma persistence: persistent Qualified Code(s): J45.51 - Severe persistent asthma with (acute) exacerbation Disposition: 09 OP ADMIT IP TO THIS HOSP Is pt being admited?: Yes Does the pt Need Aspirin: No Condition: Stable Referrals: PRIMARY CARE, [Primary Care Provider] - 3-5 Days Time of Disposition: 10:49
[2018-03-01] MEDS ORDERED: TYLENOL PO PRN ×2 (10:49→11:45)
[2018-03-01] MEDS ORDERED: ZOFRAN IV PRN ×2 (10:49→11:45)
[2018-03-01] MEDS ORDERED: SODIUM CHLORIDE FLUSH SYRINGE 10 ML IV PRN ×2 (10:49→11:45)
--- NOTE | 2018-03-01 11:57 | History and Physical Report ---
History of Present Illness Date of examination: 03/01/18 Chief complaint: Worsening shortness of breath and wheezing for 2 days History of present illness: Patient is a 22-year-old -Irish female with history of asthma since the age of 3 and with exacerbations every "couple" of months complains of asthma attack, with worsening shortness of breath over the past 2 days. She has not had any fever chills or diaphoresis, she denies any cough. Patient works at a local [employer], and reports that exposure to the heat as well as to the fumes of the grease tend to set off her episodes, and has done so over the past couple of days. Patient is under insured, cannot afford routine asthma medications and she uses albuterol inhaler and nebulizer treatments at home as needed. She denies any smoking. She continued to have shortness of breath and wheezing despite aggressive treatment while in the ED and is being admitted for further management of her acute asthma exacerbation Past History Past Medical History: other (asthma) Past Surgical History: No surgical history Social history: no significant social history Family history: no significant family history, other (father has asthma) Medications and Allergies Allergies Allergy/AdvReac Type Severity Reaction Status Date / Time No Known Allergies Allergy Verified 10/03/17 09:27 Home Medications Medication Instructions Recorded Confirmed Last Taken Type Albuterol Sulfate [Proventil Hfa] 6.7 gm IH Q4H PRN #1 hfa.aer.ad 11/13/17 Unknown Rx Arformoterol Nebu [Brovana Nebu] 15 mcg IH Q12HRT #60 ml 11/13/17 Unknown Rx Budesonide [Pulmicort Respules] 0.25 mg IH Q12HRT #60 nebu 11/13/17 Unknown Rx Fluticasone/Salmeterol [Advair 1 puff IH BID #1 disk.w.dev 11/13/17 Unknown Rx Diskus 250-50 mcg] Inhaler, Assist Devices [Space 1 each MC Q4H PRN #1 spacer 11/13/17 Unknown Rx Chamber Plus] Nebulizer [Aeroneb Go Nebulizer] 1 each MC Q4H PRN #1 each 11/13/17 Unknown Rx Levalbuterol [Xopenex] 0.63 mg IH PRN PRN #60 nebu 12/28/17 Unknown Rx Montelukast [Singulair] 10 mg PO QHS #30 tablet 12/28/17 Unknown Rx predniSONE [Deltasone] 10 mg PO .TAPER #21 tab 12/28/17 Unknown Rx Active Meds: Active Medications Acetaminophen (Tylenol) 650 mg PO Q4H PRN PRN Reason: Pain MILD(1-3)/Fever >100.5/SPARKS Acetaminophen (Tylenol) 650 mg PO Q4H PRN PRN Reason: Pain MILD(1-3)/Fever >100.5/SPARKS Albuterol/Ipratropium (Duoneb *Not For Prn Use*) 1 ampul IH Q6HRT [facility] Arformoterol Tartrate (Brovana Nebu) 15 mcg IH Q12HRT [facility] Dextrose/Sodium Chloride (D5ns) 1,000 mls @ 75 mls/hr IV DIRECT [facility] Methylprednisolone Sodium Succinate (Solu-Medrol) 60 mg IV Q8H [facility] Montelukast Sodium (Singulair) 10 mg PO QHS [facility] Ondansetron HCl (Zofran) 4 mg IV Q8H PRN PRN Reason: Nausea And Vomiting Ondansetron HCl (Zofran) 4 mg IV Q8H PRN PRN Reason: Nausea And Vomiting Sodium Chloride (Sodium Chloride Flush Syringe 10 Ml) 10 ml IV BID [facility] Last Admin: 03/01/18 11:37 Dose: 10 ml Sodium Chloride (Sodium Chloride Flush Syringe 10 Ml) 10 ml IV PRN PRN PRN Reason: LINE FLUSH Sodium Chloride (Sodium Chloride Flush Syringe 10 Ml) 10 ml IV BID [facility] Sodium Chloride (Sodium Chloride Flush Syringe 10 Ml) 10 ml IV PRN PRN PRN Reason: LINE FLUSH Review of Systems Constitutional: no weight loss, no weight gain, no fever, no chills, no sweats, no lethargy Ears, nose, mouth and throat: no ear pain, no ear discharge, no nasal congestion , no dysphagia, no sore throat, no headache Cardiovascular: no chest pain, no palpitations, no syncope Respiratory: shortness of breath, wheezing, no cough Gastrointestinal: no abdominal pain, no nausea, no vomiting, no diarrhea Genitourinary Female: no dysmenorrhea, no dysuria Rectal: no pain Musculoskeletal: no neck stiffness, no myalgias, no arthritis Integumentary: no rash Neurological: no seizures, no syncope Psychiatric: no anxiety, no depression Endocrine: no polydipsia, no polyuria Allergic/Immunologic: wheezing, no urticaria Exam - Constitutional Vitals: Temp Pulse Resp BP Pulse Ox 97.9 F 118 H 17 121/76 98 03/01/18 07:00 03/01/18 10:45 03/01/18 10:45 03/01/18 10:45 03/01/18 10:45 General appearance: Present: no acute distress - EENT Eyes: Present: PERRL, EOM intact ENT: hearing intact, clear oral mucosa, no thrush - Neck Neck: Present: supple, normal ROM - Respiratory Respiratory effort: accessory muscle use Respiratory: bilateral: wheezing (diffuse bilateral inspiratory and expiratory wheezing with prolonged expiratory phase), negative: rales - Cardiovascular Rhythm: other (moderately tachycardiac) Heart Sounds: Present: S1 & S2 - Extremities Extremities: No edema - Abdominal General gastrointestinal: Present: soft, non-tender. Absent: hepatomegaly, splenomegaly - Rectal Rectal Exam: deferred - Integumentary Integumentary: Present: clear - Musculoskeletal Musculoskeletal: strength equal bilaterally - Psychiatric Psychiatric: appropriate mood/affect - Neurologic Neurologic: CNII-XII intact, no focal deficits Results - Labs CBC & Chem 7: 03/01/18 06:08 03/01/18 06:08 Labs: Abnormal lab results 03/01/18 03/01/18 Range/Units 06:08 06:08 MCV 76 L (79-97) fl MCH 23 L (28-32) pg RDW 19.4 H (13.2-15.2) % Eosinophils % (Manual) 10.0 H (0.0-4.3) % Eosinophils # (Manual) 1.1 H (0.0-0.4) K/mm3 BUN 5 L (7-17) mg/dL Creatinine 0.3 L (0.7-1.2) mg/dL Glucose 143 H (65-100) mg/dL Calcium 8.2 L (8.4-10.2) mg/dL Magnesium 3.50 H (1.7-2.3) mg/dL Assessment and Plan - Patient Problems (1) Asthma exacerbation Onset Date: 05/16/15 Current Visit: Yes Status: Acute Qualifiers: Asthma severity: severe Asthma persistence: persistent Qualified Code(s) : J45.51 - Severe persistent asthma with (acute) exacerbation Plan to address problem: possibly Secondary to exposure to fumes and dough and medication noncompliance Admit patient to medical floor on observation status We will start the patient on intravenous steroids inhalation steroids and long- acting beta agonists and albuterol via nebulizer every 6 hours There is no evidence of infection so we will discontinue Zithromax We will also start the patient on sliding scale coverage with insulin for steroid-induced hyperglycemia Stressed the importance of compliance with medications All lab results and chest x-ray results reviewed
[2018-03-01] MEDS ORDERED: SODIUM CHLORIDE FLUSH SYRINGE 10 ML IV SCH (12:00)
[2018-03-01] MEDS ORDERED: ZITHROMAX 500 MG in NACL 0.9% 250ML 250 ML IV SCH (12:00)
[2018-03-01] MEDS ORDERED: D5NS 1,000 ML IV SCH (12:00)
[2018-03-01] MEDS: HumuLIN R SUB-Q SCH ×2 (16:30→22:34)
[2018-03-01] MEDS: DUONEB *Not for PRN Use IH SCH ×2 (16:50→19:23)
[2018-03-01] MEDS: BROVANA NEBU IH SCH (19:22)
[2018-03-01] MEDS: SINGULAIR PO SCH (22:34)
[2018-03-01] MEDS: SODIUM CHLORIDE FLUSH SYRINGE 10 ML IV SCH (22:34)
[2018-03-02] MEDS: DUONEB *Not for PRN Use IH SCH ×2 (01:20→07:58)
[2018-03-02] MEDS: BROVANA NEBU IH SCH (07:58)
[2018-03-02 09:15] LABS: Hematocrit 35.5 % (30.3-42.9); Hemoglobin 11.3 gm/dl (10.1-14.3); Lymphocytes # (Auto) 0.9 K/mm3 (1.2-5.4); Lymphocytes % (Auto) 7.2 % (13.4-35.0); Mean Corpuscular HGB Conc 32 % (30-34); Mean Corpuscular Volume 74 fl (79-97); Monocytes # (Auto) 0.8 K/mm3 (0.0-0.8); Monocytes % (Auto) 6.2 % (0.0-7.3); Platelet Count 272 K/mm3 (140-440); Red Blood Count 4.78 M/mm3 (3.65-5.03); Red Cell Distribution Width 19.4 % (13.2-15.2)
[2018-03-02 09:16] LABS: Mean Corpuscular Hemoglobin 24 pg (28-32)
[2018-03-02] MEDS: HumuLIN R SUB-Q SCH ×4 (09:32→23:11)
[2018-03-02 09:45] LABS: BUN/Creatinine Ratio 20; Blood Urea Nitrogen 8 mg/dL (7-17); Hemolysis Index 0
--- NOTE | 2018-03-02 12:35 | Progress Note ---
Assessment and Plan - Patient Problems (1) Asthma exacerbation Onset Date: 05/16/15 Current Visit: Yes Status: Acute Qualifiers: Asthma severity: severe Asthma persistence: persistent Qualified Code(s) : J45.51 - Severe persistent asthma with (acute) exacerbation Subjective Date of service: 03/02/18 Interval history: HPI: Patient is a 22-year-old -Welsh female with history of asthma since the age of 3 and with exacerbations every "couple" of months complains of asthma attack, with worsening shortness of breath over the past 2 days. She has not had any fever chills or diaphoresis, she denies any cough. Patient works at a local [employer], and reports that exposure to the heat as well as to the fumes of the grease tend to set off her episodes, and has done so over the past couple of days. Patient is under insured, cannot afford routine asthma medications and she uses albuterol inhaler and nebulizer treatments at home as needed. She denies any smoking. She continued to have shortness of breath and wheezing despite aggressive treatment while in the ED and is being admitted for further management of her acute asthma exacerbation 03/02 she is resting comfortably in the bed, feels better and less dyspneic but states she gets short of breath with minimal exertion like walking to the bathroom Also complains of cough with some mucoid sputum. He denies any chest pain fever or chills or hemoptysis. All laboratory results Reviewed 11 point review of systems is negative except as stated above in the history of present illness Assessment and plan: Acute persistent asthma exacerbation: Continue IV steroids, [id number] albuterol solution via nebulizer, inhalation steroids Patient is still short of breath and with diffuse wheezing. She is not ready for discharge today Hyperglycemia: Secondary to steroid induced. Continue insulin sliding scale coverage Leukocytosis: Likely steroid-induced. No focus of infection. We'll hold off on antibiotic Objective - Constitutional Vitals: Vital Signs - 12hr 03/02/18 03/02/18 03/02/18 01:20 01:29 07:50 Temperature Pulse Rate Pulse Rate [ 117 H 122 H 138 H Posterior Bilateral Throughout] Respiratory Rate Respiratory 18 18 18 Rate [Posterior Bilateral Throughout] Blood Pressure O2 Sat by Pulse Oximetry 03/02/18 03/02/18 03/02/18 08:00 08:03 09:33 Temperature 98.8 F Pulse Rate 138 H Pulse Rate [ 138 H Posterior Bilateral Throughout] Respiratory 16 Rate Respiratory 18 Rate [Posterior Bilateral Throughout] Blood Pressure 99/49 O2 Sat by Pulse 97 98 Oximetry 03/02/18 09:42 Temperature Pulse Rate Pulse Rate [ Posterior Bilateral Throughout] Respiratory Rate Respiratory Rate [Posterior Bilateral Throughout] Blood Pressure O2 Sat by Pulse 99 Oximetry General appearance: Present: no acute distress, well-nourished - EENT Eyes: PERRL, EOM intact ENT: hearing intact, clear oral mucosa, no thrush - Neck Neck: supple, normal ROM, no masses or JVD - Respiratory Respiratory effort: normal Respiratory: bilateral: wheezing (diffuse bilateral inspiratory and expiratory wheezing) - Cardiovascular Rhythm: regular Heart Sounds: Present: S1 & S2 Extremities: No edema - Gastrointestinal General gastrointestinal: Present: soft, non-tender. Absent: hepatomegaly, splenomegaly Rectal Exam: deferred - Genitourinary Female genitourinary: deferred - Integumentary Integumentary: clear - Musculoskeletal Musculoskeletal: strength equal bilaterally - Neurologic Neurologic: no focal deficits - Psychiatric Psychiatric: appropriate mood/affect - Labs CBC & Chem 7: 03/02/18 08:05 03/02/18 08:05 Labs: Abnormal lab results 03/01/18 03/02/18 03/02/18 Range/Units 16:56 08:05 08:05 WBC 12.2 H (4.5-11.0) K/mm3 MCV 74 L (79-97) fl MCH 24 L (28-32) pg RDW 19.4 H (13.2-15.2) % Lymph % (Auto) 7.2 L (13.4-35.0) % Lymph # 0.9 L (1.2-5.4) K/mm3 Seg Neutrophils % 86.6 H (40.0-70.0) % Seg Neutrophils # 10.5 H (1.8-7.7) K/mm3 Creatinine 0.4 L (0.7-1.2) mg/dL Glucose 122 H (65-100) mg/dL POC Glucose 158 H (70-105)
[2018-03-02] MEDS: SODIUM CHLORIDE FLUSH SYRINGE 10 ML IV SCH ×2 (12:55→23:12)
[2018-03-02] MEDS: GUAIFENESIN DM SYRUP PO SCH ×2 (12:55→18:49)
[2018-03-02] MEDS: ATROVENT IH SCH ×2 (13:28→19:58)
[2018-03-02] MEDS: XOPENEX IH SCH ×2 (13:28→19:58)
[2018-03-02] MEDS: SINGULAIR PO SCH (21:36)
[2018-03-03] MEDS: BROVANA NEBU IH SCH ×3 (01:50→20:27)
[2018-03-03] MEDS: ATROVENT IH SCH ×5 (02:29→20:18)
[2018-03-03] MEDS: XOPENEX IH SCH ×5 (02:30→20:18)
[2018-03-03] MEDS: GUAIFENESIN DM SYRUP PO SCH ×3 (03:14→20:37)
[2018-03-03] MEDS: HumuLIN R SUB-Q SCH ×4 (08:21→21:54)
--- NOTE | 2018-03-03 10:21 | Progress Note ---
Assessment and Plan - Asthma exacerbation continue with duoneb, iv solumedrol, iv antibiotic pulmacort - Shortness of breath secondary to asthma Same treatment as above -Disposition: D/c home as patient is insistent with close f/u with PCP Subjective Date of service: 03/03/18 Principal diagnosis: Asthma exercebation Interval history: Pt seen and examined. wheezing getting beeter but still present on exertion. However want to go home today and follow up with PCP Objective - Constitutional Vitals: Vital Signs - 12hr 03/03/18 03/03/18 03/03/18 02:31 02:40 03:02 Temperature Pulse Rate Pulse Rate [ 87 88 Posterior Bilateral Throughout] Respiratory 20 Rate Respiratory 18 18 Rate [Posterior Bilateral Throughout] Blood Pressure [Left] O2 Sat by Pulse Oximetry 03/03/18 03/03/18 03/03/18 07:14 07:45 07:55 Temperature 98.6 F Pulse Rate 103 H Pulse Rate [ 102 H 103 H Posterior Bilateral Throughout] Respiratory 20 Rate Respiratory 18 20 Rate [Posterior Bilateral Throughout] Blood Pressure 125/66 [Left] O2 Sat by Pulse 99 Oximetry 03/03/18 09:25 Temperature Pulse Rate Pulse Rate [ Posterior Bilateral Throughout] Respiratory Rate Respiratory Rate [Posterior Bilateral Throughout] Blood Pressure [Left] O2 Sat by Pulse 99 Oximetry General appearance: Present: no acute distress, well-nourished - EENT Eyes: PERRL, EOM intact Ears: bilateral: normal - Neck Neck: supple, normal ROM - Respiratory Respiratory effort: normal Respiratory: bilateral: wheezing - Cardiovascular Rhythm: regular Heart Sounds: Present: S1 & S2. Absent: gallop, rub Extremities: pulses intact, No edema, normal color, Full ROM - Gastrointestinal General gastrointestinal: Present: soft, non-tender, non-distended, normal bowel sounds - Integumentary Integumentary: clear, warm, dry - Musculoskeletal Musculoskeletal: strength equal bilaterally - Neurologic Neurologic: moves all extremities - Psychiatric Psychiatric: memory intact, appropriate mood/affect, intact judgment & insight - Labs CBC & Chem 7: 03/02/18 08:05 03/02/18 08:05 Labs: Abnormal lab results 03/01/18 03/02/18 03/02/18 Range/Units 21:19 04:39 11:42 POC Glucose 199 H 152 H 138 H (70-105) 03/02/18 03/02/18 03/03/18 Range/Units 17:20 22:03 05:40 POC Glucose 136 H 150 H 125 H (70-105)
--- NOTE | 2018-03-03 11:55 | Discharge Summary ---
Providers - Providers Date of Admission: 03/01/18 15:02 Date of discharge: 03/03/18 Attending physician: DAINA VICTOR none Primary care physician: VICE PRESIDENT OF MARKETING Hospitalization Reason for admission: Ashma exercebation Condition: Stable Pertinent studies: Chestr xray was normal Procedures: none Hospital course: Patient is a 22-year-old -[place]alese female with history of asthma since the age of 3 and with exacerbations every "couple" of months complains of asthma attack, with worsening shortness of breath over the past 2 days. She has not had any fever chills or diaphoresis, she denies any cough. Patient works at a local [employer], and reports that exposure to the heat as well as to the fumes of the grease tend to set off her episodes, and has done so over the past couple of days. Patient is under insured, cannot afford routine asthma medications and she uses albuterol inhaler and nebulizer treatments at home as needed. She denies any smoking. She continued to have shortness of breath and wheezing despite aggressive treatment while in the ED and is being admitted for further management of her acute asthma exacerbation 03/02 she is resting comfortably in the bed, feels better and less dyspneic but states she gets short of breath with minimal exertion like walking to the bathroom Also complains of cough with some mucoid sputum. He denies any chest pain fever or chills or hemoptysis. All laboratory results Reviewed Disposition: - TO HOME OR SELFCARE Time spent for discharge: 36 mins - Discharge Diagnoses (1) Asthma exacerbation Status: Acute Qualifiers: Asthma severity: moderate Asthma persistence: persistent Qualified Code(s ): J45.41 - Moderate persistent asthma with (acute) exacerbation (2) Bronchitis Status: Acute (3) Cough Status: Acute (4) Shortness of breath Status: Acute Core Measure Documentation - Palliative Care Palliative Care/ Comfort Measures: Not Applicable - Core Measures Any of the following diagnoses?: none Exam - Constitutional Vitals: Temp Pulse Resp BP Pulse Ox 98.6 F 103 H 20 125/66 99 03/03/18 07:14 03/03/18 07:55 03/03/18 07:55 03/03/18 07:14 03/03/18 09:25 General appearance: Present: no acute distress, well-nourished - EENT Eyes: Present: PERRL - Neck Neck: Present: supple, normal ROM - Respiratory Respiratory effort: normal Respiratory: bilateral: diminished - Cardiovascular Heart Sounds: Present: S1 & S2. Absent: rub, click - Extremities Extremities: pulses symmetrical, No edema Peripheral Pulses: within normal limits - Abdominal General gastrointestinal: Present: soft, non-tender, non-distended, normal bowel sounds Female genitourinary: Present: deferred - Integumentary Integumentary: Present: clear, warm, dry - Musculoskeletal Musculoskeletal: gait normal, strength equal bilaterally - Psychiatric Psychiatric: appropriate mood/affect, intact judgment & insight - Neurologic Neurologic: CNII-XII intact, moves all extremities Plan Activity: advance as tolerated Weight Bearing Status: Weight Bear as Tolerated Diet: regular Follow up with: PRIMARY CARE, [Primary Care Provider] - 3-5 Days Prescriptions: Albuterol Sulfate [Proventil Hfa] 6.7 gm IH Q4H PRN #1 hfa.aer.ad PRN Reason: Shortness Of Breath Arformoterol Nebu [Brovana Nebu] 15 mcg IH Q12HRT #60 ml Azithromycin 250 mg PO DAILY #5 tablet Budesonide [Pulmicort Respules] 0.25 mg IH Q12HRT #60 nebu Fluticasone/Salmeterol [Advair Diskus 250-50 mcg] 1 puff IH BID #1 disk.w.dev guaiFENesin DM [Guaifenesin Dm Syrup] 10 ml PO Q8H #200 oral.liqd Ipratropium [Atrovent NEB] 0.5 mg IH Q6HRT #100 nebu Levalbuterol [Xopenex] 0.63 mg IH PRN PRN #60 nebu PRN Reason: Shortness Of Breath Montelukast [Singulair] 10 mg PO QHS #30 tablet predniSONE [Deltasone] 10 mg PO .TAPER #21 tab
[2018-03-03] MEDS: SODIUM CHLORIDE FLUSH SYRINGE 10 ML IV SCH ×2 (12:13→21:53)
--- NOTE | 2018-03-03 18:19 | Event Note ---
Date: 03/03/18 Pt stool to use the rest room and started wheezing badly. Pt who was pushing to be discharged now admitted she is no ready to go. Discharge was therefore cancelled
[2018-03-03] MEDS: SINGULAIR PO SCH (21:52)
[2018-03-04] MEDS: ATROVENT IH SCH ×3 (02:49→13:47)
[2018-03-04] MEDS: XOPENEX IH SCH ×3 (02:49→13:47)
[2018-03-04] MEDS: GUAIFENESIN DM SYRUP PO SCH ×2 (06:04→13:38)
[2018-03-04] MEDS: HumuLIN R SUB-Q SCH ×3 (07:30→16:30)
[2018-03-04 08:41] VITALS: BP 115/58
--- NOTE | 2018-03-04 09:30 | Discharge Summary ---
Providers - Providers Date of Admission: 03/01/18 15:02 Attending physician: RILEY DANIELLE MD Primary care physician: MACERATOR OPERATOR Hospitalization Condition: Stable Hospital course: Patient is a 22-year-old -[place]gu[place] female with history of asthma since the age of 3 and with exacerbations every "couple" of months complains of asthma attack, with worsening shortness of breath over 2 days. She was rx with steroids, nebs and Respiratory therapy. She improved and was dc home - Discharge Diagnoses (1) Asthma exacerbation (2) Bronchitis (3) Cough (4) Shortness of breath Disposition: DC-01 TO HOME OR SELFCARE Time spent for discharge: 33 minutes Core Measure Documentation - Palliative Care Palliative Care/ Comfort Measures: Not Applicable - Core Measures Any of the following diagnoses?: none Exam - Constitutional Vitals: Temp Pulse Resp BP Pulse Ox 98 F 93 H 18 115/58 98 03/04/18 08:35 03/04/18 08:35 03/04/18 08:35 03/04/18 08:35 03/04/18 08:35 General appearance: Present: no acute distress, well-nourished - EENT Eyes: Present: PERRL ENT: hearing intact, clear oral mucosa - Neck Neck: Present: supple, normal ROM - Respiratory Respiratory effort: normal Respiratory: bilateral: CTA - Cardiovascular Heart Sounds: Present: S1 & S2. Absent: rub, click - Extremities Extremities: pulses symmetrical, No edema Peripheral Pulses: within normal limits - Abdominal General gastrointestinal: Present: soft, non-tender, non-distended, normal bowel sounds Female genitourinary: Present: normal - Integumentary Integumentary: Present: clear, warm, dry - Musculoskeletal Musculoskeletal: gait normal, strength equal bilaterally - Psychiatric Psychiatric: appropriate mood/affect, intact judgment & insight - Neurologic Neurologic: CNII-XII intact, moves all extremities Plan Follow up with: PRIMARY CARE, [Primary Care Provider] - 3-5 Days Forms: Work/School Release Form Prescriptions: Montelukast [Singulair] 10 mg PO QHS #30 tablet Albuterol Sulfate [Proventil Hfa] 6.7 gm IH Q4H PRN #1 hfa.aer.ad PRN Reason: Shortness Of Breath Arformoterol Nebu [Brovana Nebu] 15 mcg IH Q12HRT #60 ml Azithromycin 250 mg PO DAILY #5 tablet Budesonide [Pulmicort Respules] 0.25 mg IH Q12HRT #60 nebu Fluticasone/Salmeterol [Advair Diskus 250-50 mcg] 1 puff IH BID #1 disk.w.dev guaiFENesin DM [Guaifenesin Dm Syrup] 10 ml PO Q8H #200 oral.liqd Ipratropium [Atrovent NEB] 0.5 mg IH Q6HRT #100 nebu Levalbuterol [Xopenex] 0.63 mg IH PRN PRN #60 nebu PRN Reason: Shortness Of Breath predniSONE [Deltasone] 10 mg PO .TAPER #21 tab
[2018-03-04] MEDS: BROVANA NEBU IH SCH (09:31)
[2018-03-04] MEDS: SODIUM CHLORIDE FLUSH SYRINGE 10 ML IV SCH (10:00)
== END 2018-03-04 16:30 | disposition home or self-care (01) | DRG 203 ==
LOC: ED 03:34 → 3A 15:02
PROVIDERS: ADMIT Internal Medicine; ATTEND Internal Medicine
PROC: 5A09357 Assistance with Respiratory Ventilation, Less than 24 Consecutive Hours, Continuous Positive Airway Pressure (ICD-10-PCS; principal; 2018-03-01)
PROC: 5A09357 Assistance with Respiratory Ventilation, Less than 24 Consecutive Hours, Continuous Positive Airway Pressure (ICD-10-PCS; 2018-03-02)
PROC: 5A09357 Assistance with Respiratory Ventilation, Less than 24 Consecutive Hours, Continuous Positive Airway Pressure (ICD-10-PCS; 2018-03-03)
DX: J45.51 Severe persistent asthma with (acute) exacerbation (principal); R73.9 Hyperglycemia, unspecified; T38.0X5A Adverse effect of glucocorticoids and synthetic analogues, initial encounter; Z79.899 Other long term (current) drug therapy; Y92.89 Other specified places as the place of occurrence of the external cause
CPT/HCPCS: 36415; 71045; 80048; 82962; 83735; 84703; 85007; 85025; 94640; 94644; 94760; J0456; J1815; J2405; J2930; J3475; J7050

== ENCOUNTER 2018-04-29 18:51 | Emergency (ER) | payer SELFPAY ==
[2018-04-29] MEDS ORDERED: PROVENTIL IH ONE ×3 (18:54→22:12)
[2018-04-29 18:56] VITALS: BP 156/89
[2018-04-29] MEDS ORDERED: DECADRON IM ONE (22:12)
--- NOTE | 2018-04-29 23:02 | Emergency Department Report ---
Upper Respiratory HPI - HPI Chief Complaint: Adult Asthma Stated Complaint: ASTHMA ATTACK Time Seen by Provider: 04/29/18 22:04 Duration: 4 Days URI Symptoms: Rhinorrhea: Yes, Sore Throat: No, Ear Pain: No, Cough: Yes, Shortness of Breath: Yes, Sick Contacts: No, Unable to Take Fluids: No, Urine Output Abnormal: No, Listless Behavior: No Other History: 22-year-old female history of asthma cough wheezing 2 days symptoms relieved by them treatment was given in ED patient denies fevers chills no sore throat no ear pain no headache no ROBERTS - Home Meds and Allergies Home Medications: Previous Rx's Medication Instructions Recorded Last Taken Type Arformoterol Nebu [Brovana Nebu] 15 mcg IH Q12HRT #60 ml 11/13/17 Unknown Rx Inhaler, Assist Devices [Space 1 each MC Q4H PRN #1 spacer 11/13/17 Unknown Rx Chamber Plus] Nebulizer [Aeroneb Go Nebulizer] 1 each MC Q4H PRN #1 each 11/13/17 02/28/18 22: 00 Rx Montelukast [Singulair] 10 mg PO QHS #30 tablet 12/28/17 Unknown Rx Albuterol Sulfate [Proventil Hfa] 6.7 gm IH Q4H PRN #1 hfa.aer.ad 03/03/18 Unknown Rx Arformoterol Nebu [Brovana Nebu] 15 mcg IH Q12HRT #60 ml 03/03/18 Unknown Rx Azithromycin 250 mg PO DAILY #5 tablet 03/03/18 Unknown Rx Budesonide [Pulmicort Respules] 0.25 mg IH Q12HRT #60 nebu 03/03/18 Unknown Rx Fluticasone/Salmeterol [Advair 1 puff IH BID #1 disk.w.dev 03/03/18 Unknown Rx Diskus 250-50 mcg] Ipratropium [Atrovent NEB] 0.5 mg IH Q6HRT #100 nebu 03/03/18 Unknown Rx Levalbuterol [Xopenex] 0.63 mg IH PRN PRN #60 nebu 03/03/18 Unknown Rx Montelukast [Singulair] 10 mg PO QHS #30 tablet 03/03/18 Unknown Rx guaiFENesin DM [Guaifenesin Dm 10 ml PO Q8H #200 oral.liqd 03/03/18 Unknown Rx Syrup] predniSONE [Deltasone] 10 mg PO .TAPER #21 tab 03/03/18 Unknown Rx ALBUTEROL Inhaler [ProAir HFA 2 puff IH QID PRN #1 inhalation 04/29/18 Unknown Rx Inhaler] Azithromycin 250 mg PO DAILY #6 tablet 04/29/18 Unknown Rx Benzonatate [Tessalon Perle] 100 mg PO TID PRN #30 capsule 04/29/18 Unknown Rx Ibuprofen 800 mg PO TID PRN #30 tablet 04/29/18 Unknown Rx predniSONE [Deltasone] 40 mg PO QDAY #10 tab 04/29/18 Unknown Rx Allergies/Adverse Reactions: Allergies Allergy/AdvReac Type Severity Reaction Status Date / Time No Known Allergies Allergy Verified 10/03/17 09:27 ED Review of Systems ROS: Stated complaint: ASTHMA ATTACK Other details as noted in HPI Constitutional: denies: chills, fever Eyes: denies: eye pain, eye discharge, vision change ENT: congestion Respiratory: shortness of breath, wheezing. denies: cough Cardiovascular: denies: chest pain, palpitations Endocrine: no symptoms reported Gastrointestinal: denies: abdominal pain, nausea, diarrhea Genitourinary: denies: urgency, dysuria, discharge Musculoskeletal: denies: back pain, joint swelling, arthralgia Skin: denies: rash, lesions Neurological: denies: headache, weakness, paresthesias Psychiatric: denies: anxiety, depression Hematological/Lymphatic: denies: easy bleeding, easy bruising ED Past Medical Hx - Past Medical History Hx Asthma: Yes Additional medical history: Vaginal delivery 12-06-2015 - Social History Smoking Status: Unknown if ever smoked Substance Use Type: None - Medications Home Medications: Home Medications Medication Instructions Recorded Confirmed Last Taken Type Arformoterol Nebu [Brovana Nebu] 15 mcg IH Q12HRT #60 ml 11/13/17 03/02/18 Unknown Rx Inhaler, Assist Devices [Space 1 each MC Q4H PRN #1 spacer 11/13/17 03/02/18 Unknown Rx Chamber Plus] Nebulizer [Aeroneb Go Nebulizer] 1 each MC Q4H PRN #1 each 11/13/17 03/02/1805/10 22:00 Rx Montelukast [Singulair] 10 mg PO QHS #30 tablet 12/28/17 03/02/18 Unknown Rx Albuterol Sulfate [Proventil Hfa] 6.7 gm IH Q4H PRN #1 hfa.aer.ad 03/03/18 Unknown Rx Arformoterol Nebu [Brovana Nebu] 15 mcg IH Q12HRT #60 ml 03/03/18 Unknown Rx Azithromycin 250 mg PO DAILY #5 tablet 03/03/18 Unknown Rx Budesonide [Pulmicort Respules] 0.25 mg IH Q12HRT #60 nebu 03/03/18 Unknown Rx Fluticasone/Salmeterol [Advair 1 puff IH BID #1 disk.w.dev 03/03/18 Unknown Rx Diskus 250-50 mcg] Ipratropium [Atrovent NEB] 0.5 mg IH Q6HRT #100 nebu 03/03/18 Unknown Rx Levalbuterol [Xopenex] 0.63 mg IH PRN PRN #60 nebu 03/03/18 Unknown Rx Montelukast [Singulair] 10 mg PO QHS #30 tablet 03/03/18 Unknown Rx guaiFENesin DM [Guaifenesin Dm 10 ml PO Q8H #200 oral.liqd 03/03/18 Unknown Rx Syrup] predniSONE [Deltasone] 10 mg PO .TAPER #21 tab 03/03/18 Unknown Rx ALBUTEROL Inhaler [ProAir HFA 2 puff IH QID PRN #1 inhalation 04/29/18 Unknown Rx Inhaler] Azithromycin 250 mg PO DAILY #6 tablet 04/29/18 Unknown Rx Benzonatate [Tessalon Perle] 100 mg PO TID PRN #30 capsule 04/29/18 Unknown Rx Ibuprofen 800 mg PO TID PRN #30 tablet 04/29/18 Unknown Rx predniSONE [Deltasone] 40 mg PO QDAY #10 tab 04/29/18 Unknown Rx ED Bronchiolitis Physical Exam - Exam General: Vital signs noted. No distress. Alert and acting appropriately. HEENT: Yes Rhinorrhea, No Pharyngeal Erythema, No Conjuctival Injection, No Dry Mucous Membranes Ear: Neither TM Bulge, Neither TM Erythema, Neither EAC Discharge Neck: No Adenopathy, No Rigidity Lungs: Yes Good Air Exchange, Yes Wheezes, Yes Cough, No Clear Lung Sounds, No Stridor, No Nasal Flaring, No Retractions, No Use of Accessory Muscles Heart: Yes Regular, No Murmur Abdomen: No Tenderness, No Peritoneal Signs, No Normal Bowel Sounds Skin: No Rash, No Eczema Neurologic: Alert and oriented, no deficits. Musculoskeletal: Unremarkable. Treatments - Treaments Treatment: Improved Albuterol ED Physical Exam - General Limitations: No Limitations General appearance: alert, in no apparent distress - Head Head exam: Present: atraumatic, normocephalic - Eye Eye exam: Present: normal appearance, PERRL, EOMI Pupils: Present: normal accommodation - ENT ENT exam: Present: mucous membranes moist - Expanded ENT Exam Expanded Mouth exam: Absent: trismus Throat exam: Positive: normal inspection. Negative: tonsillar erythema, tonsillomegaly, tonsillar exudate, R peritonsillar mass, L peritonsillar mass - Neck Neck exam: Present: normal inspection, full ROM, thyromegaly. Absent: lymphadenopathy - Respiratory Respiratory exam: Present: wheezes. Absent: chest wall tenderness - Expanded Respiratory Exam Expanded Location: Wheezes: Right, Left, Upper, Decreased Breath Sounds: Lower, Right, Left - Cardiovascular Cardiovascular Exam: Present: regular rate, normal rhythm, normal heart sounds. Absent: systolic murmur, diastolic murmur, rubs, gallop - GI/Abdominal GI/Abdominal exam: Present: soft, normal bowel sounds. Absent: distended, tenderness, guarding, rebound, rigid, organomegaly, mass, bruit, pulsatile mass , hernia - Rectal Rectal exam: Present: deferred - Extremities Exam Extremities exam: Present: normal inspection - Back Exam Back exam: Present: normal inspection - Neurological Exam Neurological exam: Present: alert, oriented X3 - Psychiatric Psychiatric exam: Present: normal affect, normal mood - Skin Skin exam: Present: warm, dry, intact, normal color. Absent: rash ED Course Vital Signs 04/29/18 18:54 Temperature 97.9 F Pulse Rate 115 H Respiratory 26 H Rate Blood Pressure 156/89 O2 Sat by Pulse 97 Oximetry ED Medical Decision Making - Medical Decision Making Patient advises symptoms much improved wheezing reduced patient laboratory and ED from room around fast track and back to bed without shortness of breath patient rate 2/10 now refill albuterol inhaler and prednisone by mouth [id number] ibuprofen when necessary pain fever Tessalon Perles for cough patient verbalizes understanding and agreement with saline we DC'd home in stable condition at this time Critical care attestation.: If time is entered above; I have spent that time in minutes in the direct care of this critically ill patient, excluding procedure time. ED Disposition Clinical Impression: Bronchitis Disposition: DC-01 TO HOME OR SELFCARE Is pt being admited?: No Does the pt Need Aspirin: No Condition: Good Instructions: Chronic Bronchitis (ED), Acute Bronchitis (ED) Prescriptions: ALBUTEROL Inhaler [ProAir HFA Inhaler] 2 puff IH QID PRN #1 inhalation PRN Reason: Shortness Of Breath Azithromycin 250 mg PO DAILY #6 tablet Benzonatate [Tessalon Perle] 100 mg PO TID PRN #30 capsule PRN Reason: Cough Ibuprofen 800 mg PO TID PRN #30 tablet PRN Reason: pain fever predniSONE [Deltasone] 40 mg PO QDAY #10 tab Forms: Work/School Release Form(ED) Time of Disposition: 23:09
[2018-04-29] MEDS ORDERED: ZITHROMAX PO ONE (23:45)
[2018-04-29] MEDS ORDERED: LEVALBUTEROL IH ONE (23:45)
[2018-04-29] MEDS ORDERED: XOPENEX IH ONE (23:45)
== END 2018-04-30 00:10 | disposition home or self-care (01) ==
LOC: ED 18:51
DX: J40 Bronchitis, not specified as acute or chronic (principal)
CPT/HCPCS: 94640; 96372; 99283; J1100

== ENCOUNTER 2018-09-15 18:13 | Emergency (ER) | payer SELFPAY ==
[2018-09-15 18:26] VITALS: BP 154/76
[2018-09-15] MEDS ORDERED: DUONEB *Not for PRN Use IH ONE (18:27)
[2018-09-15] MEDS ORDERED: DECADRON IM ONE (18:38)
[2018-09-15] MEDS ORDERED: ATROVENT IH ONE ×2 (19:35→19:36)
[2018-09-15] MEDS ORDERED: PROVENTIL IH ONE (19:35)
--- NOTE | 2018-09-15 19:36 | Emergency Department Report ---
ED Asthma HPI - General Chief Complaint: Adult Asthma Stated Complaint: ASTHMA/TUYET Time Seen by Provider: 09/15/18 18:36 Source: patient Mode of arrival: Ambulatory Limitations: No Limitations - History of Present Illness Initial Comments: This is a 22-year-old female nontoxic, well nourished in appearance, no acute signs of distress presents to the ED with c/o of acute on chronic asthma exacerbation. Patient stated has been out of her inhaler x2 weeks. Patient denies any cough. Patient denies any sick contact. Patient denies any recent travels, long car, recent hospital stays. Patient denies any calf pain or calf tenderness. Patient denies any chest pain, short of breath, fever, chills, nausea, vomiting, hemoptysis, numbness, tingling, headache or stiff neck. Past medical history includes asthma. MD Complaint: "asthma attack", shortness of breath, wheezing -: This afternoon Asthma History: childhood onset Severity: mild Context: none known Associated Symptoms: none - Related Data Previous Rx's Medication Instructions Recorded Last Taken Type Arformoterol Nebu [Brovana Nebu] 15 mcg IH Q12HRT #60 ml 11/13/17 Unknown Rx Inhaler, Assist Devices [Space 1 each MC Q4H PRN #1 spacer 11/13/17 Unknown Rx Chamber Plus] Nebulizer [Aeroneb Go Nebulizer] 1 each MC Q4H PRN #1 each 11/13/17 02/28/18 22:00 Rx Montelukast [Singulair] 10 mg PO QHS #30 tablet 12/28/17 Unknown Rx Albuterol Sulfate [Proventil Hfa] 6.7 gm IH Q4H PRN #1 hfa.aer.ad 03/03/18 Unknown Rx Arformoterol Nebu [Brovana Nebu] 15 mcg IH Q12HRT #60 ml 03/03/18 Unknown Rx Azithromycin 250 mg PO DAILY #5 tablet 03/03/18 Unknown Rx Budesonide [Pulmicort Respules] 0.25 mg IH Q12HRT #60 nebu 03/03/18 Unknown Rx Fluticasone/Salmeterol [Advair 1 puff IH BID #1 disk.w.dev 03/03/18 Unknown Rx Diskus 250-50 mcg] Ipratropium [Atrovent NEB] 0.5 mg IH Q6HRT #100 nebu 03/03/18 Unknown Rx Levalbuterol [Xopenex] 0.63 mg IH PRN PRN #60 nebu 03/03/18 Unknown Rx Montelukast [Singulair] 10 mg PO QHS #30 tablet 03/03/18 Unknown Rx guaiFENesin DM [Guaifenesin Dm 10 ml PO Q8H #200 oral.liqd 03/03/18 Unknown Rx Syrup] predniSONE [Deltasone] 10 mg PO .TAPER #21 tab 03/03/18 Unknown Rx ALBUTEROL Inhaler (OR & NICU) 2 puff IH QID PRN #1 inhalation 04/29/18 Unknown Rx [ProAir HFA Inhaler] Azithromycin 250 mg PO DAILY #6 tablet 04/29/18 Unknown Rx Benzonatate [Tessalon Perle] 100 mg PO TID PRN #30 capsule 04/29/18 Unknown Rx Ibuprofen 800 mg PO TID PRN #30 tablet 04/29/18 Unknown Rx predniSONE [Deltasone] 40 mg PO QDAY #10 tab 04/29/18 Unknown Rx ALBUTEROL Inhaler (OR & NICU) 1 puff IH Q4-6H PRN #1 inha 07/22/18 Unknown Rx [ProAir HFA Inhaler] ALBUTEROL NEB's [Proventil 0.083% 2.5 mg IH TID PRN #1 neb 07/22/18 Unknown Rx NEBS] Fluticasone (Nf) [Flovent Hfa(Nf)] 2 puff IH BID #1 puff 07/22/18 Unknown Rx Montelukast [Singulair] 10 mg PO QPM #30 tablet 07/22/18 Unknown Rx predniSONE [Deltasone] 50 mg PO QDAY #5 tab 07/22/18 Unknown Rx ALBUTEROL Inhaler(NF) [VENTOLIN 1 puff IH Q4-6H PRN #1 inha 09/15/18 Unknown Rx Inhaler(NF)] Prednisone [predniSONE 10 mg 10 mg PO .TAPER #1 tab.ds.pk 09/15/18 Unknown Rx (6-Day Pack, 21 Tabs)] Allergies Allergy/AdvReac Type Severity Reaction Status Date / Time No Known Allergies Allergy Verified 10/03/17 09:27 ED Review of Systems ROS: Stated complaint: ASTHMA/TUYET Other details as noted in HPI Constitutional: denies: chills, fever Eyes: denies: eye pain, eye discharge, vision change ENT: denies: ear pain, throat pain Respiratory: shortness of breath, wheezing. denies: cough Cardiovascular: denies: chest pain, palpitations Endocrine: no symptoms reported Gastrointestinal: denies: abdominal pain, nausea, diarrhea Genitourinary: denies: urgency, dysuria, discharge Musculoskeletal: denies: back pain, joint swelling, arthralgia Skin: denies: rash, lesions Neurological: denies: headache, weakness, paresthesias Psychiatric: denies: anxiety, depression Hematological/Lymphatic: denies: easy bleeding, easy bruising ED Past Medical Hx - Past Medical History Hx Asthma: Yes Additional medical history: Vaginal delivery 12-06-2015 - Surgical History Past Surgical History?: No - Social History Smoking Status: Never Smoker Substance Use Type: None - Medications Home Medications: Home Medications Medication Instructions Recorded Confirmed Last Taken Type Arformoterol Nebu [Brovana Nebu] 15 mcg IH Q12HRT #60 ml 11/13/17 03/02/18 Unknown Rx Inhaler, Assist Devices [Space 1 each MC Q4H PRN #1 spacer 11/13/17 03/02/18 Unknown Rx Chamber Plus] Nebulizer [Aeroneb Go Nebulizer] 1 each MC Q4H PRN #1 each 11/13/17 03/02/18 02/28/18 22:00 Rx Montelukast [Singulair] 10 mg PO QHS #30 tablet 12/28/17 03/02/18 Unknown Rx Albuterol Sulfate [Proventil Hfa] 6.7 gm IH Q4H PRN #1 hfa.aer.ad 03/03/18 Unknown Rx Arformoterol Nebu [Brovana Nebu] 15 mcg IH Q12HRT #60 ml 03/03/18 Unknown Rx Azithromycin 250 mg PO DAILY #5 tablet 03/03/18 Unknown Rx Budesonide [Pulmicort Respules] 0.25 mg IH Q12HRT #60 nebu 03/03/18 Unknown Rx Fluticasone/Salmeterol [Advair 1 puff IH BID #1 disk.w.dev 03/03/18 Unknown Rx Diskus 250-50 mcg] Ipratropium [Atrovent NEB] 0.5 mg IH Q6HRT #100 nebu 03/03/18 Unknown Rx Levalbuterol [Xopenex] 0.63 mg IH PRN PRN #60 nebu 03/03/18 Unknown Rx Montelukast [Singulair] 10 mg PO QHS #30 tablet 03/03/18 Unknown Rx guaiFENesin DM [Guaifenesin Dm 10 ml PO Q8H #200 oral.liqd 03/03/18 Unknown Rx Syrup] predniSONE [Deltasone] 10 mg PO .TAPER #21 tab 03/03/18 Unknown Rx ALBUTEROL Inhaler (OR & NICU) 2 puff IH QID PRN #1 inhalation 04/29/18 Unknown Rx [ProAir HFA Inhaler] Azithromycin 250 mg PO DAILY #6 tablet 04/29/18 Unknown Rx Benzonatate [Tessalon Perle] 100 mg PO TID PRN #30 capsule 04/29/18 Unknown Rx Ibuprofen 800 mg PO TID PRN #30 tablet 04/29/18 Unknown Rx predniSONE [Deltasone] 40 mg PO QDAY #10 tab 04/29/18 Unknown Rx ALBUTEROL Inhaler (OR & NICU) 1 puff IH Q4-6H PRN #1 inha 07/22/18 Unknown Rx [ProAir HFA Inhaler] ALBUTEROL NEB's [Proventil 0.083% 2.5 mg IH TID PRN #1 neb 07/22/18 Unknown Rx NEBS] Fluticasone (Nf) [Flovent Hfa(Nf)] 2 puff IH BID #1 puff 07/22/18 Unknown Rx Montelukast [Singulair] 10 mg PO QPM #30 tablet 07/22/18 Unknown Rx predniSONE [Deltasone] 50 mg PO QDAY #5 tab 07/22/18 Unknown Rx ALBUTEROL Inhaler(NF) [VENTOLIN 1 puff IH Q4-6H PRN #1 inha 09/15/18 Unknown Rx Inhaler(NF)] Prednisone [predniSONE 10 mg 10 mg PO .TAPER #1 tab.ds.pk 09/15/18 Unknown Rx (6-Day Pack, 21 Tabs)] ED Physical Exam - General Limitations: No Limitations General appearance: alert, in no apparent distress - Head Head exam: Present: atraumatic, normocephalic - Eye Eye exam: Present: normal appearance - Neck Neck exam: Present: normal inspection, full ROM - Respiratory Respiratory exam: Present: normal lung sounds bilaterally, wheezes (bilateral upper and lower lobes). Absent: respiratory distress, rales, rhonchi, stridor, chest wall tenderness, accessory muscle use, decreased breath sounds, prolonged expiratory - Cardiovascular Cardiovascular Exam: Present: regular rate, normal rhythm, normal heart sounds. Absent: bradycardia, tachycardia, irregular rhythm, systolic murmur, diastolic murmur, rubs, gallop - Extremities Exam Extremities exam: Present: normal inspection, full ROM - Back Exam Back exam: Present: normal inspection, full ROM - Neurological Exam Neurological exam: Present: alert, oriented X3 - Psychiatric Psychiatric exam: Present: normal affect, normal mood - Skin Skin exam: Present: warm, dry, intact, normal color. Absent: rash ED Course Vital Signs 09/15/18 18:23 Temperature 97.8 F Pulse Rate 59 L Respiratory 20 Rate Blood Pressure 154/76 O2 Sat by Pulse 100 Oximetry - Reevaluation(s) Reevaluation #1: 09/15/18 19:40 Patient is speaking in full sentences with no signs of distress noted. ED Medical Decision Making - Medical Decision Making This is a 22-year-old female that presents with asthma exacerbation. Patient is stable and was examined by me. Chest x-ray has been obtained and dictated by the radiologist within normal limits. Patient is notified of the x-ray report with no questions noted by the patient. Patient did received medical treatment and steroids in the ED which patient the symptoms has resolved and subsided. Posttreatment and there is no wheezing upon auscultation. Patient is discharged with albuterol and prednisone. Patient was referred to Follow-up with a primary care doctor in 3-5 days or if symptoms worsen and continue return to emergency room as soon as possible. At time of discharge, the patient does not seem toxic or ill in appearance. No acute signs of distress noted. Patient agrees to discharge treatment plan of care. No further questions noted by the patient. This chart is dictated with using [employer] Critical care attestation.: If time is entered above; I have spent that time in minutes in the direct care of this critically ill patient, excluding procedure time. ED Disposition Clinical Impression: Asthma exacerbation Qualifiers: Asthma severity: mild Asthma persistence: intermittent Qualified Code(s): J45.21 - Mild intermittent asthma with (acute) exacerbation Disposition: TO HOME OR SELFCARE Is pt being admited?: No Does the pt Need Aspirin: No Condition: Stable Instructions: Asthma (ED) Additional Instructions: Follow-up with a primary care doctor in 3-5 days or if symptoms worsen and continue return to emergency room as soon as possible. Prescriptions: ALBUTEROL Inhaler(NF) [VENTOLIN Inhaler(NF)] 1 puff IH Q4-6H PRN #1 inha PRN Reason: Wheezing Prednisone [predniSONE 10 mg (6-Day Pack, 21 Tabs)] 10 mg PO .TAPER #1 tab.ds.pk Referrals: PRIMARY CARE, [Primary Care Provider] - 3-5 Days CHARLEY POWER MD [Staff Physician] - 3-5 Days [facility] [Outside] - 3-5 Days [facility] [Outside] - 3-5 Days Forms: Work/School Release Form(ED)
--- NOTE | 2018-09-15 20:27 | XRay Report ---
FINAL REPORT EXAM: XR CHEST ROUTINE 2V HISTORY: wheezing TECHNIQUE: Two view chest PA and lateral PRIORS: None. FINDINGS: Cardiac and mediastinal contours are unremarkable. No focal pulmonary infiltrate is identified. No pleural fluid collection seen. Pulmonary vasculature is unremarkable. IMPRESSION: Negative two-view chest
== END 2018-09-15 20:55 | disposition home or self-care (01) ==
LOC: ED 18:13
DX: J45.21 Mild intermittent asthma with (acute) exacerbation (principal)
CPT/HCPCS: 71046; 94640; 96372; 99283; J1100

== ENCOUNTER 2018-10-06 00:10 | Emergency (ER) | payer SELFPAY ==
[2018-10-06] MEDS ORDERED: PROVENTIL IH ONE ×2 (00:31→01:25)
[2018-10-06] MEDS ORDERED: ATROVENT IH ONE (00:31)
[2018-10-06] MEDS ORDERED: BENADRYL IV STA (01:25)
[2018-10-06] MEDS ORDERED: SOLU-Medrol IV ONE (01:25)
--- NOTE | 2018-10-06 01:34 | Emergency Department Report ---
ED Asthma HPI - General Chief Complaint: Adult Asthma Stated Complaint: ASTHMA ATTACK Time Seen by Provider: 10/06/18 01:24 Source: patient Mode of arrival: Ambulatory Limitations: No Limitations - History of Present Illness MD Complaint: "asthma attack", shortness of breath, wheezing -: days(s) (1) Asthma History: childhood onset, history of frequent attac, history of prior ED visit Severity: moderate Context: none known Associated Symptoms: dry cough Treatments Prior to Arrival: inhaled bronchodilator - Related Data Current Asthma Therapy: inhaled bronchodilator Previous Rx's Medication Instructions Recorded Last Taken Type Arformoterol Nebu [Brovana Nebu] 15 mcg IH Q12HRT #60 ml 11/13/17 Unknown Rx Inhaler, Assist Devices [Space 1 each MC Q4H PRN #1 spacer 11/13/17 Unknown Rx Chamber Plus] Nebulizer [Aeroneb Go Nebulizer] 1 each MC Q4H PRN #1 each 11/13/17 02/28/18 22:00 Rx Montelukast [Singulair] 10 mg PO QHS #30 tablet 12/28/17 Unknown Rx Albuterol Sulfate [Proventil Hfa] 6.7 gm IH Q4H PRN #1 hfa.aer.ad 03/03/18 Unknown Rx Arformoterol Nebu [Brovana Nebu] 15 mcg IH Q12HRT #60 ml 03/03/18 Unknown Rx Azithromycin 250 mg PO DAILY #5 tablet 03/03/18 Unknown Rx Budesonide [Pulmicort Respules] 0.25 mg IH Q12HRT #60 nebu 03/03/18 Unknown Rx Fluticasone/Salmeterol [Advair 1 puff IH BID #1 disk.w.dev 03/03/18 Unknown Rx Diskus 250-50 mcg] Ipratropium [Atrovent NEB] 0.5 mg IH Q6HRT #100 nebu 03/03/18 Unknown Rx Levalbuterol [Xopenex] 0.63 mg IH PRN PRN #60 nebu 03/03/18 Unknown Rx Montelukast [Singulair] 10 mg PO QHS #30 tablet 03/03/18 Unknown Rx guaiFENesin DM [Guaifenesin Dm 10 ml PO Q8H #200 oral.liqd 03/03/18 Unknown Rx Syrup] predniSONE [Deltasone] 10 mg PO .TAPER #21 tab 03/03/18 Unknown Rx ALBUTEROL Inhaler (OR & NICU) 2 puff IH QID PRN #1 inhalation 04/29/18 Unknown Rx [ProAir HFA Inhaler] Azithromycin 250 mg PO DAILY #6 tablet 04/29/18 Unknown Rx Benzonatate [Tessalon Perle] 100 mg PO TID PRN #30 capsule 04/29/18 Unknown Rx Ibuprofen 800 mg PO TID PRN #30 tablet 04/29/18 Unknown Rx predniSONE [Deltasone] 40 mg PO QDAY #10 tab 04/29/18 Unknown Rx ALBUTEROL Inhaler (OR & NICU) 1 puff IH Q4-6H PRN #1 inha 07/22/18 Unknown Rx [ProAir HFA Inhaler] ALBUTEROL NEB's [Proventil 0.083% 2.5 mg IH TID PRN #1 neb 07/22/18 Unknown Rx NEBS] Fluticasone (Nf) [Flovent Hfa(Nf)] 2 puff IH BID #1 puff 07/22/18 Unknown Rx Montelukast [Singulair] 10 mg PO QPM #30 tablet 07/22/18 Unknown Rx predniSONE [Deltasone] 50 mg PO QDAY #5 tab 07/22/18 Unknown Rx ALBUTEROL Inhaler(NF) [VENTOLIN 1 puff IH Q4-6H PRN #1 inha 09/15/18 Unknown Rx Inhaler(NF)] Prednisone [predniSONE 10 mg 10 mg PO .TAPER #1 tab.ds.pk 09/15/18 Unknown Rx (6-Day Pack, 21 Tabs)] ALBUTEROL Inhaler (OR & NICU) 1 puff IH Q4-6H PRN #1 inha 10/06/18 Unknown Rx [ProAir HFA Inhaler] Azithromycin [Zithromax] 500 mg PO QDAY #5 tablet 10/06/18 Unknown Rx Montelukast [Singulair] 10 mg PO QPM #14 tablet 10/06/18 Unknown Rx predniSONE [Deltasone] 50 mg PO QDAY #5 tab 10/06/18 Unknown Rx Allergies Allergy/AdvReac Type Severity Reaction Status Date / Time No Known Allergies Allergy Verified 10/03/17 09:27 ED Review of Systems ROS: Stated complaint: ASTHMA ATTACK Other details as noted in HPI Constitutional: denies: chills, fever Eyes: denies: eye pain, eye discharge, vision change ENT: denies: ear pain, throat pain Respiratory: cough, shortness of breath, wheezing Cardiovascular: denies: chest pain, palpitations Endocrine: no symptoms reported Gastrointestinal: denies: abdominal pain, nausea, diarrhea Genitourinary: denies: urgency, dysuria, discharge Musculoskeletal: denies: back pain, joint swelling, arthralgia Skin: denies: rash, lesions Neurological: denies: headache, weakness, paresthesias Psychiatric: denies: anxiety, depression Hematological/Lymphatic: denies: easy bleeding, easy bruising ED Past Medical Hx - Past Medical History Previous Medical History?: Yes Hx Asthma: Yes Additional medical history: Vaginal delivery 12-06-2015 - Surgical History Past Surgical History?: No - Social History Smoking Status: Former Smoker Substance Use Type: None - Medications Home Medications: Home Medications Medication Instructions Recorded Confirmed Last Taken Type Arformoterol Nebu [Brovana Nebu] 15 mcg IH Q12HRT #60 ml 11/13/17 03/02/18 Unknown Rx Inhaler, Assist Devices [Space 1 each MC Q4H PRN #1 spacer 11/13/17 03/02/18 Unknown Rx Chamber Plus] Nebulizer [Aeroneb Go Nebulizer] 1 each MC Q4H PRN #1 each 11/13/17 03/02/18 02/28/18 22:00 Rx Montelukast [Singulair] 10 mg PO QHS #30 tablet 12/28/17 03/02/18 Unknown Rx Albuterol Sulfate [Proventil Hfa] 6.7 gm IH Q4H PRN #1 hfa.aer.ad 03/03/18 Unknown Rx Arformoterol Nebu [Brovana Nebu] 15 mcg IH Q12HRT #60 ml 03/03/18 Unknown Rx Azithromycin 250 mg PO DAILY #5 tablet 03/03/18 Unknown Rx Budesonide [Pulmicort Respules] 0.25 mg IH Q12HRT #60 nebu 03/03/18 Unknown Rx Fluticasone/Salmeterol [Advair 1 puff IH BID #1 disk.w.dev 03/03/18 Unknown Rx Diskus 250-50 mcg] Ipratropium [Atrovent NEB] 0.5 mg IH Q6HRT #100 nebu 03/03/18 Unknown Rx Levalbuterol [Xopenex] 0.63 mg IH PRN PRN #60 nebu 03/03/18 Unknown Rx Montelukast [Singulair] 10 mg PO QHS #30 tablet 03/03/18 Unknown Rx guaiFENesin DM [Guaifenesin Dm 10 ml PO Q8H #200 oral.liqd 03/03/18 Unknown Rx Syrup] predniSONE [Deltasone] 10 mg PO .TAPER #21 tab 03/03/18 Unknown Rx ALBUTEROL Inhaler (OR & NICU) 2 puff IH QID PRN #1 inhalation 04/29/18 Unknown Rx [ProAir HFA Inhaler] Azithromycin 250 mg PO DAILY #6 tablet 04/29/18 Unknown Rx Benzonatate [Tessalon Perle] 100 mg PO TID PRN #30 capsule 04/29/18 Unknown Rx Ibuprofen 800 mg PO TID PRN #30 tablet 04/29/18 Unknown Rx predniSONE [Deltasone] 40 mg PO QDAY #10 tab 04/29/18 Unknown Rx ALBUTEROL Inhaler (OR & NICU) 1 puff IH Q4-6H PRN #1 inha 07/22/18 Unknown Rx [ProAir HFA Inhaler] ALBUTEROL NEB's [Proventil 0.083% 2.5 mg IH TID PRN #1 neb 07/22/18 Unknown Rx NEBS] Fluticasone (Nf) [Flovent Hfa(Nf)] 2 puff IH BID #1 puff 07/22/18 Unknown Rx Montelukast [Singulair] 10 mg PO QPM #30 tablet 07/22/18 Unknown Rx predniSONE [Deltasone] 50 mg PO QDAY #5 tab 07/22/18 Unknown Rx ALBUTEROL Inhaler(NF) [VENTOLIN 1 puff IH Q4-6H PRN #1 inha 09/15/18 Unknown Rx Inhaler(NF)] Prednisone [predniSONE 10 mg 10 mg PO .TAPER #1 tab.ds.pk 09/15/18 Unknown Rx (6-Day Pack, 21 Tabs)] ALBUTEROL Inhaler (OR & NICU) 1 puff IH Q4-6H PRN #1 inha 10/06/18 Unknown Rx [ProAir HFA Inhaler] Azithromycin [Zithromax] 500 mg PO QDAY #5 tablet 10/06/18 Unknown Rx Montelukast [Singulair] 10 mg PO QPM #14 tablet 10/06/18 Unknown Rx predniSONE [Deltasone] 50 mg PO QDAY #5 tab 10/06/18 Unknown Rx ED Physical Exam - General Limitations: No Limitations General appearance: alert, in no apparent distress, other (sitting comfortably but appears to be having some slight increase in work of breathing.) - Head Head exam: Present: atraumatic, normocephalic - Eye Eye exam: Present: normal appearance, PERRL, EOMI Pupils: Present: normal accommodation - ENT ENT exam: Present: normal exam, mucous membranes moist - Neck Neck exam: Present: normal inspection - Respiratory Respiratory exam: Present: normal lung sounds bilaterally, wheezes, decreased breath sounds. Absent: respiratory distress, rales, rhonchi, chest wall tenderness, accessory muscle use - Cardiovascular Cardiovascular Exam: Present: regular rate, normal rhythm. Absent: bradycardia, tachycardia, systolic murmur, diastolic murmur, rubs, gallop - GI/Abdominal GI/Abdominal exam: Present: soft, normal bowel sounds. Absent: tenderness, guarding, rebound, hyperactive bowel sounds, organomegaly - Extremities Exam Extremities exam: Present: normal inspection, full ROM. Absent: normal capillary refill, pedal edema - Back Exam Back exam: Present: normal inspection, full ROM. Absent: CVA tenderness (L) - Neurological Exam Neurological exam: Present: alert, oriented X3, CN II-XII intact, normal gait - Psychiatric Psychiatric exam: Present: normal affect, normal mood. Absent: anxious, flat affect - Skin Skin exam: Present: warm, dry, intact, normal color. Absent: rash ED Course Vital Signs 10/06/18 10/06/18 10/06/18 00:16 00:45 03:20 Temperature 98.2 F Pulse Rate 121 H 128 H Pulse Rate [ 116 H Anterior Bilateral Throughout] Respiratory 18 30 H Rate Respiratory 22 Rate [Anterior Bilateral Throughout] Blood Pressure 152/61 Blood Pressure 125/66 [Left] O2 Sat by Pulse 96 97 Oximetry 10/06/18 04:04 Temperature Pulse Rate 117 H Pulse Rate [ Anterior Bilateral Throughout] Respiratory 28 H Rate Respiratory Rate [Anterior Bilateral Throughout] Blood Pressure Blood Pressure 103/66 [Left] O2 Sat by Pulse 96 Oximetry - Reevaluation(s) Reevaluation #2: 10/06/18 04:55 Reevaluating Ms. Camara states she feels much better after being given another breathing treatment and the magnesium was given. Chest is loose, not significantly and she feels comfortable being discharged home and she requests to be discharged home. I again offered her admission, although her labs appear to be well. There is no evidence of any pulmonary edema with a BNP. She denies any chest pain. No hemoptysis . She is alert and oriented 3 of sound judgment. States she will return if she feels her condition is worsening. Mohit phillips, I advised her that I did not have an issue admitting her onto her wheezing is completely resolved and her chest tightness is completely resolved. However, she refused ED Medical Decision Making - Lab Data Result diagrams: 10/06/18 03:50 - Radiology Data Radiology results: report reviewed [address] [place] [address] XRay Report Signed Patient: PAVEL CAMARA MR#: [id number] : 1995 Acct:[id number] Age/Sex: 22 / F ADM Date: 10/06/18 Loc: ED Attending Dr: Ordering Physician: LANA BUSTOS Date of Service: 10/06/18 Procedure(s): XR chest routine 2V Accession Number(s): [id number] cc: LANA BUSTOS Fluoro Time In Minutes: FINAL REPORT PROCEDURE: XR CHEST ROUTINE 2V TECHNIQUE: PA and lateral chest radiographs were obtained. CPT 01549 HISTORY: wheezing and sob COMPARISON: 09/15/2018 FINDINGS: Heart: Normal. Mediastinum/Vessels: Normal. Lungs/Pleural space: The lungs are expanded. The there are perihilar reticular densities suggesting interstitial pneumonitis versus pulmonary edema.. There is no pleural effusion or pneumothorax. Bony thorax: No acute osseous abnormality. Other: IMPRESSION: Heart size is normal. The lungs are expanded. The there are perihilar reticular densities suggesting interstitial pneumonitis versus pulmonary edema.. There is no pleural effusion or pneumothorax. Transcribed By: CO Dictated By: MALCOM ELLINGTON MD Electronically Authenticated By: MALCOM ELLINGTON MD Signed Date/Time: 10/06/18245 DD/ 6 TD/TT: 10/06/18246 Critical care attestation.: If time is entered above; I have spent that time in minutes in the direct care of this critically ill patient, excluding procedure time. ED Disposition Clinical Impression: Wheezing, Asthma exacerbation, Cough Disposition: TO HOME OR SELFCARE Is pt being admited?: No Does the pt Need Aspirin: No Condition: Stable Prescriptions: ALBUTEROL Inhaler (OR & NICU) [ProAir HFA Inhaler] 1 puff IH Q4-6H PRN #1 inha PRN Reason: Cough Azithromycin [Zithromax] 500 mg PO QDAY #5 tablet Montelukast [Singulair] 10 mg PO QPM #14 tablet predniSONE [Deltasone] 50 mg PO QDAY #5 tab Referrals: PRIMARY MD RADHA [Primary Care Provider] - 3-5 Days [facility] [Provider Group] - 3-5 Days
--- NOTE | 2018-10-06 02:46 | XRay Report ---
FINAL REPORT PROCEDURE: XR CHEST ROUTINE 2V TECHNIQUE: PA and lateral chest radiographs were obtained. CPT 17727 HISTORY: wheezing and sob COMPARISON: 09/15/2018 FINDINGS: Heart: Normal. Mediastinum/Vessels: Normal. Lungs/Pleural space: The lungs are expanded. The there are perihilar reticular densities suggesting i nterstitial pneumonitis versus pulmonary edema.. There is no pleural effusion or pneumothorax. Bony thorax: No acute osseous abnormality. Other: IMPRESSION: Heart size is normal. The lungs are expanded. The there are perihilar reticular densities suggesting interstitial pneumonit is versus pulmonary edema.. There is no pleural effusion or pneumothorax.
[2018-10-06] MEDS ORDERED: MAGNESIUM SULFATE 2GM/50ML 2 GM/50 ML BAG IV ONE (03:13)
[2018-10-06] MEDS ORDERED: XOPENEX IH STA (03:15)
[2018-10-06 04:18] LABS: Hematocrit 38.5 % (30.3-42.9); Hemoglobin 12.1 gm/dl (10.1-14.3); Mean Corpuscular HGB Conc 32 % (30-34); Mean Corpuscular Volume 75 fl (79-97); Platelet Count 228 K/mm3 (140-440); Red Blood Count 5.15 M/mm3 (3.65-5.03); Red Cell Distribution Width 18.7 % (13.2-15.2)
[2018-10-06 04:28] LABS: BUN/Creatinine Ratio 15; Blood Urea Nitrogen 6 mg/dL (7-17); Calcium 9.1 mg/dL (8.4-10.2); Hemolysis Index 6
[2018-10-06 06:07] LABS: Band Neutrophils # (Manual) 0.8 K/mm3; Basophils % (Manual) 0 % (0.0-1.8); Eosinophils % (Manual) 0 % (0.0-4.3); Total Cells Counted 100
[2018-10-06 06:08] LABS: Platelet Estimate Consistent w Auto
[2018-10-06 06:55] VITALS: BP 111/82
== END 2018-10-06 07:02 | disposition home or self-care (01) ==
LOC: ED 00:10
DX: J45.901 Unspecified asthma with (acute) exacerbation (principal); Z87.891 Personal history of nicotine dependence
CPT/HCPCS: 36415; 71046; 80048; 83880; 85007; 85025; 96374; 96375; J1200; J2930; J3475

== ENCOUNTER 2018-11-09 02:34 | Emergency (ER) | payer SELFPAY | END 2018-11-09 05:30 | disposition left against medical advice (07) | LOC: ED 02:34 ==

== ENCOUNTER 2019-05-24 08:45 | Emergency (ER) | payer SELFPAY ==
[2019-05-24 08:55] VITALS: BP 131/71
[2019-05-24] MEDS ORDERED: PROVENTIL IH ONE (09:49)
[2019-05-24] MEDS ORDERED: DECADRON IM ONE (09:49)
[2019-05-24] MEDS ORDERED: ATROVENT IH ONE (09:49)
--- NOTE | 2019-05-24 10:12 | Emergency Department Report ---
ED Asthma HPI - General Chief Complaint: Adult Asthma Stated Complaint: ASTHMA Time Seen by Provider: 05/24/19 09:31 Source: patient Mode of arrival: Ambulatory Limitations: No Limitations - History of Present Illness Initial Comments: This is a 23-year-old female nontoxic, well nourished in appearance, no acute signs of distress presents to the ED with c/o of acute on chronic asthma exacerbation. Patient stated she has taken her inhaler with no relief. Patient denies any cough. Patient denies any sick contact. Patient denies any recent travels, long car, recent hospital stays. Patient denies any calf pain or calf tenderness. Patient denies any chest pain, short of breath, fever, chills, nausea, vomiting, hemoptysis, numbness, tingling, headache or stiff neck. Past medical history includes asthma. MD Complaint: "asthma attack", wheezing -: days(s) (1) Asthma History: childhood onset Severity: mild Associated Symptoms: none. denies: productive cough, dry cough, fever, chest pain, hemoptysis, leg edema, syncope Treatments Prior to Arrival: inhaled bronchodilator - Related Data Previous Rx's Medication Instructions Recorded Last Taken Type Arformoterol Nebu [Brovana Nebu] 15 mcg IH Q12HRT #60 ml 11/13/17 Unknown Rx Inhaler, Assist Devices [Space 1 each MC Q4H PRN #1 spacer 11/13/17 Unknown Rx Chamber Plus] Nebulizer [Aeroneb Go Nebulizer] 1 each MC Q4H PRN #1 each 11/13/17 02/28/18 22:00 Rx Montelukast [Singulair] 10 mg PO QHS #30 tablet 12/28/17 Unknown Rx Albuterol Sulfate [Proventil Hfa] 6.7 gm IH Q4H PRN #1 hfa.aer.ad 03/03/18 Unknown Rx Arformoterol Nebu [Brovana Nebu] 15 mcg IH Q12HRT #60 ml 03/03/18 Unknown Rx Azithromycin 250 mg PO DAILY #5 tablet 03/03/18 Unknown Rx Budesonide [Pulmicort Respules] 0.25 mg IH Q12HRT #60 nebu 03/03/18 Unknown Rx Fluticasone/Salmeterol [Advair 1 puff IH BID #1 disk.w.dev 03/03/18 Unknown Rx Diskus 250-50 mcg] Ipratropium [Atrovent NEB] 0.5 mg IH Q6HRT #100 nebu 03/03/18 Unknown Rx Levalbuterol [Xopenex] 0.63 mg IH PRN PRN #60 nebu 03/03/18 Unknown Rx Montelukast [Singulair] 10 mg PO QHS #30 tablet 03/03/18 Unknown Rx guaiFENesin DM [Guaifenesin Dm 10 ml PO Q8H #200 oral.liqd 03/03/18 Unknown Rx Syrup] predniSONE [Deltasone] 10 mg PO .TAPER #21 tab 03/03/18 Unknown Rx ALBUTEROL Inhaler (OR & NICU) 2 puff IH QID PRN #1 inhalation 04/29/18 Unknown Rx [ProAir HFA Inhaler] Azithromycin 250 mg PO DAILY #6 tablet 04/29/18 Unknown Rx Benzonatate [Tessalon Perle] 100 mg PO TID PRN #30 capsule 04/29/18 Unknown Rx Ibuprofen [Ibuprofen 800] 800 mg PO TID PRN #30 tablet 04/29/18 Unknown Rx predniSONE [Deltasone] 40 mg PO QDAY #10 tab 04/29/18 Unknown Rx ALBUTEROL Inhaler (OR & NICU) 1 puff IH Q4-6H PRN #1 inha 07/22/18 Unknown Rx [ProAir HFA Inhaler] ALBUTEROL NEB's [Proventil 0.083% 2.5 mg IH TID PRN #1 neb 07/22/18 Unknown Rx NEBS] Fluticasone (Nf) [Flovent Hfa(Nf)] 2 puff IH BID #1 puff 07/22/18 Unknown Rx Montelukast [Singulair] 10 mg PO QPM #30 tablet 07/22/18 Unknown Rx predniSONE [Deltasone] 50 mg PO QDAY #5 tab 07/22/18 Unknown Rx ALBUTEROL Inhaler(NF) [VENTOLIN 1 puff IH Q4-6H PRN #1 inha 09/15/18 Unknown Rx Inhaler(NF)] Prednisone [predniSONE 10 mg 10 mg PO .TAPER #1 tab.ds.pk 09/15/18 Unknown Rx (6-Day Pack, 21 Tabs)] ALBUTEROL Inhaler (OR & NICU) 1 puff IH Q4-6H PRN #1 inha 10/06/18 Unknown Rx [ProAir HFA Inhaler] Azithromycin [Zithromax] 500 mg PO QDAY #5 tablet 10/06/18 Unknown Rx Montelukast [Singulair] 10 mg PO QPM #14 tablet 10/06/18 Unknown Rx predniSONE [Deltasone] 50 mg PO QDAY #5 tab 10/06/18 Unknown Rx ALBUTEROL Inhaler (OR & NICU) 2 puff IH QID PRN #1 inhalation 05/24/19 Unknown Rx [ProAir HFA Inhaler] Prednisone [predniSONE 10 mg 10 mg PO .TAPER #1 tab.ds.pk 05/24/19 Unknown Rx (6-Day Pack, 21 Tabs)] Allergies Allergy/AdvReac Type Severity Reaction Status Date / Time No Known Allergies Allergy Verified 10/03/17 09:27 ED Review of Systems ROS: Stated complaint: ASTHMA Other details as noted in HPI Constitutional: denies: chills, fever Eyes: denies: eye pain, eye discharge, vision change ENT: denies: ear pain, throat pain Respiratory: wheezing. denies: cough, shortness of breath Cardiovascular: denies: chest pain, palpitations Endocrine: no symptoms reported Gastrointestinal: denies: abdominal pain, nausea, diarrhea Genitourinary: denies: urgency, dysuria, discharge Musculoskeletal: denies: back pain, joint swelling, arthralgia Skin: denies: rash, lesions Neurological: denies: headache, weakness, paresthesias Psychiatric: denies: anxiety, depression Hematological/Lymphatic: denies: easy bleeding, easy bruising ED Past Medical Hx - Past Medical History Previous Medical History?: Yes Hx Asthma: Yes Additional medical history: Vaginal delivery 12-06-2015 - Surgical History Past Surgical History?: No - Social History Smoking Status: Never Smoker Substance Use Type: None - Medications Home Medications: Home Medications Medication Instructions Recorded Confirmed Last Taken Type Arformoterol Nebu [Brovana Nebu] 15 mcg IH Q12HRT #60 ml 11/13/17 03/02/18 Unknown Rx Inhaler, Assist Devices [Space 1 each MC Q4H PRN #1 spacer 11/13/17 03/02/18 Unknown Rx Chamber Plus] Nebulizer [Aeroneb Go Nebulizer] 1 each MC Q4H PRN #1 each 11/13/17 03/02/18 02/28/18 22:00 Rx Montelukast [Singulair] 10 mg PO QHS #30 tablet 12/28/17 03/02/18 Unknown Rx Albuterol Sulfate [Proventil Hfa] 6.7 gm IH Q4H PRN #1 hfa.aer.ad 03/03/18 Unknown Rx Arformoterol Nebu [Brovana Nebu] 15 mcg IH Q12HRT #60 ml 03/03/18 Unknown Rx Azithromycin 250 mg PO DAILY #5 tablet 03/03/18 Unknown Rx Budesonide [Pulmicort Respules] 0.25 mg IH Q12HRT #60 nebu 03/03/18 Unknown Rx Fluticasone/Salmeterol [Advair 1 puff IH BID #1 disk.w.dev 03/03/18 Unknown Rx Diskus 250-50 mcg] Ipratropium [Atrovent NEB] 0.5 mg IH Q6HRT #100 nebu 03/03/18 Unknown Rx Levalbuterol [Xopenex] 0.63 mg IH PRN PRN #60 nebu 03/03/18 Unknown Rx Montelukast [Singulair] 10 mg PO QHS #30 tablet 03/03/18 Unknown Rx guaiFENesin DM [Guaifenesin Dm 10 ml PO Q8H #200 oral.liqd 03/03/18 Unknown Rx Syrup] predniSONE [Deltasone] 10 mg PO .TAPER #21 tab 03/03/18 Unknown Rx ALBUTEROL Inhaler (OR & NICU) 2 puff IH QID PRN #1 inhalation 04/29/18 Unknown Rx [ProAir HFA Inhaler] Azithromycin 250 mg PO DAILY #6 tablet 04/29/18 Unknown Rx Benzonatate [Tessalon Perle] 100 mg PO TID PRN #30 capsule 04/29/18 Unknown Rx Ibuprofen [Ibuprofen 800] 800 mg PO TID PRN #30 tablet 04/29/18 Unknown Rx predniSONE [Deltasone] 40 mg PO QDAY #10 tab 04/29/18 Unknown Rx ALBUTEROL Inhaler (OR & NICU) 1 puff IH Q4-6H PRN #1 inha 07/22/18 Unknown Rx [ProAir HFA Inhaler] ALBUTEROL NEB's [Proventil 0.083% 2.5 mg IH TID PRN #1 neb 07/22/18 Unknown Rx NEBS] Fluticasone (Nf) [Flovent Hfa(Nf)] 2 puff IH BID #1 puff 07/22/18 Unknown Rx Montelukast [Singulair] 10 mg PO QPM #30 tablet 07/22/18 Unknown Rx predniSONE [Deltasone] 50 mg PO QDAY #5 tab 07/22/18 Unknown Rx ALBUTEROL Inhaler(NF) [VENTOLIN 1 puff IH Q4-6H PRN #1 inha 09/15/18 Unknown Rx Inhaler(NF)] Prednisone [predniSONE 10 mg 10 mg PO .TAPER #1 tab.ds.pk 09/15/18 Unknown Rx (6-Day Pack, 21 Tabs)] ALBUTEROL Inhaler (OR & NICU) 1 puff IH Q4-6H PRN #1 inha 10/06/18 Unknown Rx [ProAir HFA Inhaler] Azithromycin [Zithromax] 500 mg PO QDAY #5 tablet 10/06/18 Unknown Rx Montelukast [Singulair] 10 mg PO QPM #14 tablet 10/06/18 Unknown Rx predniSONE [Deltasone] 50 mg PO QDAY #5 tab 10/06/18 Unknown Rx ALBUTEROL Inhaler (OR & NICU) 2 puff IH QID PRN #1 inhalation 05/24/19 Unknown Rx [ProAir HFA Inhaler] Prednisone [predniSONE 10 mg 10 mg PO .TAPER #1 tab.ds.pk 05/24/19 Unknown Rx (6-Day Pack, 21 Tabs)] ED Physical Exam - General Limitations: No Limitations General appearance: alert, in no apparent distress - Head Head exam: Present: atraumatic, normocephalic - Neck Neck exam: Present: normal inspection, full ROM. Absent: tenderness, meningismus, lymphadenopathy - Respiratory Respiratory exam: Present: wheezes. Absent: respiratory distress, rales (bilateral upper and lower lobes), rhonchi, stridor, chest wall tenderness, accessory muscle use, decreased breath sounds, prolonged expiratory - Cardiovascular Cardiovascular Exam: Present: regular rate, normal rhythm, normal heart sounds. Absent: irregular rhythm, systolic murmur, diastolic murmur, rubs, gallop - Extremities Exam Extremities exam: Present: normal inspection, full ROM, normal capillary refill. Absent: tenderness - Back Exam Back exam: Present: normal inspection, full ROM - Neurological Exam Neurological exam: Present: alert, oriented X3, normal gait - Psychiatric Psychiatric exam: Present: normal affect, normal mood - Skin Skin exam: Present: warm, dry, intact, normal color. Absent: rash ED Course Vital Signs 05/24/19 08:53 Temperature 98 F Pulse Rate 105 H Respiratory 18 Rate Blood Pressure 131/71 O2 Sat by Pulse 100 Oximetry - Reevaluation(s) Reevaluation #1: 05/24/19 10:12 Patient is speaking in full sentences with no signs of distress noted. ED Medical Decision Making - Medical Decision Making This is a 23-year-old female that presents with asthma exacerbation. Patient is stable and was examined by me. Patient did receive breathing treatment and steroids in the ED which patient the symptoms has resolved and subsided. Posttreatment and there is no wheezing upon auscultation. Patient is discharged with albuterol and prednisone. Patient was referred to Follow-up with a primary care doctor in 3-5 days or if symptoms worsen and continue return to emergency room as soon as possible. At time of discharge, the patient does not seem toxic or ill in appearance. No acute signs of distress noted. Patient agrees to discharge treatment plan of care. No further questions noted by the patient. This chart is dictated with using [employer] Critical care attestation.: If time is entered above; I have spent that time in minutes in the direct care o f this critically ill patient, excluding procedure time. ED Disposition Clinical Impression: Asthma exacerbation Qualifiers: Asthma severity: mild Asthma persistence: intermittent Qualified Code(s): J45.21 - Mild intermittent asthma with (acute) exacerbation Disposition: TO HOME OR SELFCARE Is pt being admited?: No Does the pt Need Aspirin: No Condition: Stable Instructions: Asthma (ED) Additional Instructions: Follow-up with a primary care doctor in 3-5 days or if symptoms worsen and continue return to emergency room as soon as possible. Prescriptions: Prednisone [predniSONE 10 mg (6-Day Pack, 21 Tabs)] 10 mg PO .TAPER #1 tab.ds.pk ALBUTEROL Inhaler (OR & NICU) [ProAir HFA Inhaler] 2 puff IH QID PRN #1 inhalation PRN Reason: Shortness Of Breath Referrals: PRIMARY CAREMD [Primary Care Provider] - 3-5 Days CHARLEY POWER MD [Staff Physician] - 3-5 Days [facility] [Outside] - 3-5 Days [facility] [Outside] - 3-5 Days Forms: Work/School Release Form(ED)
== END 2019-05-24 12:16 | disposition home or self-care (01) ==
LOC: ED 08:45
DX: J45.21 Mild intermittent asthma with (acute) exacerbation (principal); Z79.899 Other long term (current) drug therapy
CPT/HCPCS: 96372; 99282; J1100

== ENCOUNTER 2019-12-05 14:27 | Emergency (ER) | payer SELFPAY ==
[2019-12-05] MEDS ORDERED: IPRATROPIUM 0.02% NEBU 2.5 ML IH ONE (14:43)
[2019-12-05] MEDS ORDERED: ALBUTEROL 2.5 MG/3 ML NEBU IH ONE (14:43)
--- NOTE | 2019-12-05 14:51 | Emergency Department Report ---
ED Asthma HPI - General Chief Complaint: Adult Asthma Stated Complaint: ASTHMA Time Seen by Provider: 12/05/19 14:43 Source: patient Mode of arrival: Ambulatory Limitations: No Limitations - History of Present Illness MD Complaint: "asthma attack" (ran out of medicaitons.) -: Gradual Asthma History: childhood onset Severity: mild Context: none known Associated Symptoms: dry cough - Related Data Previous Rx's Medication Instructions Recorded Last Taken Type Arformoterol Nebu [Brovana Nebu] 15 mcg IH Q12HRT #60 ml 11/13/17 Unknown Rx Inhaler, Assist Devices [Space 1 each MC Q4H PRN #1 spacer 11/13/17 Unknown Rx Chamber Plus] Nebulizer [Aeroneb Go Nebulizer] 1 each MC Q4H PRN #1 each 11/13/17 02/28/18 22:00 Rx Montelukast [Singulair] 10 mg PO QHS #30 tablet 12/28/17 Unknown Rx Albuterol Sulfate [Proventil Hfa] 6.7 gm IH Q4H PRN #1 hfa.aer.ad 03/03/18 Unknown Rx Arformoterol Nebu [Brovana Nebu] 15 mcg IH Q12HRT #60 ml 03/03/18 Unknown Rx Azithromycin 250 mg PO DAILY #5 tablet 03/03/18 Unknown Rx Budesonide [Pulmicort Respules] 0.25 mg IH Q12HRT #60 nebu 03/03/18 Unknown Rx Fluticasone/Salmeterol [Advair 1 puff IH BID #1 disk.w.dev 03/03/18 Unknown Rx Diskus 250-50 mcg] Ipratropium [Atrovent NEB] 0.5 mg IH Q6HRT #100 nebu 03/03/18 Unknown Rx Levalbuterol [Xopenex] 0.63 mg IH PRN PRN #60 nebu 03/03/18 Unknown Rx Montelukast [Singulair] 10 mg PO QHS #30 tablet 03/03/18 Unknown Rx guaiFENesin DM [Guaifenesin Dm 10 ml PO Q8H #200 oral.liqd 03/03/18 Unknown Rx Syrup] predniSONE [Deltasone] 10 mg PO .TAPER #21 tab 03/03/18 Unknown Rx Albuterol INH(or & Nicu Only) 2 puff IH QID PRN #1 inhalation 04/29/18 Unknown Rx [ProAir HFA Inhaler] Azithromycin 250 mg PO DAILY #6 tablet 04/29/18 Unknown Rx Benzonatate [Tessalon Perle] 100 mg PO TID PRN #30 capsule 04/29/18 Unknown Rx Ibuprofen [Ibuprofen 800] 800 mg PO TID PRN #30 tablet 04/29/18 Unknown Rx predniSONE [Deltasone] 40 mg PO QDAY #10 tab 04/29/18 Unknown Rx ALBUTEROL NEB's [Proventil 0.083% 2.5 mg IH TID PRN #1 neb 07/22/18 Unknown Rx NEBS] Albuterol INH(or & Nicu Only) 1 puff IH Q4-6H PRN #1 inha 07/22/18 Unknown Rx [ProAir HFA Inhaler] Fluticasone (Nf) [Flovent Hfa(Nf)] 2 puff IH BID #1 puff 07/22/18 Unknown Rx Montelukast [Singulair] 10 mg PO QPM #30 tablet 07/22/18 Unknown Rx predniSONE [Deltasone] 50 mg PO QDAY #5 tab 07/22/18 Unknown Rx ALBUTEROL Inhaler(NF) [VENTOLIN 1 puff IH Q4-6H PRN #1 inha 09/15/18 Unknown Rx Inhaler(NF)] Prednisone [predniSONE 10 mg 10 mg PO .TAPER #1 tab.ds.pk 09/15/18 Unknown Rx (6-Day Pack, 21 Tabs)] Albuterol INH(or & Nicu Only) 1 puff IH Q4-6H PRN #1 inha 10/06/18 Unknown Rx [ProAir HFA Inhaler] Azithromycin [Zithromax] 500 mg PO QDAY #5 tablet 10/06/18 Unknown Rx Montelukast [Singulair] 10 mg PO QPM #14 tablet 10/06/18 Unknown Rx predniSONE [Deltasone] 50 mg PO QDAY #5 tab 10/06/18 Unknown Rx Albuterol INH(or & Nicu Only) 2 puff IH QID PRN #1 inhalation 05/24/19 Unknown Rx [ProAir HFA Inhaler] Prednisone [predniSONE 10 mg 10 mg PO .TAPER #1 tab.ds.pk 05/24/19 Unknown Rx (6-Day Pack, 21 Tabs)] Albuterol INH(or & Nicu Only) 2 puff IH QID PRN #1 inhalation 12/05/19 Unknown Rx [ProAir HFA Inhaler] predniSONE [Deltasone] 50 mg PO QDAY #5 tab 12/05/19 Unknown Rx Allergies Allergy/AdvReac Type Severity Reaction Status Date / Time No Known Allergies Allergy Verified 10/03/17 09:27 ED Review of Systems ROS: Stated complaint: ASTHMA Other details as noted in HPI Comment: All other systems reviewed and negative ED Past Medical Hx - Past Medical History Hx Asthma: Yes Additional medical history: Vaginal delivery 12-06-2015 - Surgical History Past Surgical History?: No - Social History Smoking Status: Never Smoker - Medications Home Medications: Home Medications Medication Instructions Recorded Confirmed Last Taken Type Arformoterol Nebu [Brovana Nebu] 15 mcg IH Q12HRT #60 ml 11/13/17 03/02/18 Unknown Rx Inhaler, Assist Devices [Space 1 each MC Q4H PRN #1 spacer 11/13/17 03/02/18 Unknown Rx Chamber Plus] Nebulizer [Aeroneb Go Nebulizer] 1 each MC Q4H PRN #1 each 11/13/17 03/02/18 02/28/18 22:00 Rx Montelukast [Singulair] 10 mg PO QHS #30 tablet 12/28/17 03/02/18 Unknown Rx Albuterol Sulfate [Proventil Hfa] 6.7 gm IH Q4H PRN #1 hfa.aer.ad 03/03/18 Unknown Rx Arformoterol Nebu [Brovana Nebu] 15 mcg IH Q12HRT #60 ml 03/03/18 Unknown Rx Azithromycin 250 mg PO DAILY #5 tablet 03/03/18 Unknown Rx Budesonide [Pulmicort Respules] 0.25 mg IH Q12HRT #60 nebu 03/03/18 Unknown Rx Fluticasone/Salmeterol [Advair 1 puff IH BID #1 disk.w.dev 03/03/18 Unknown Rx Diskus 250-50 mcg] Ipratropium [Atrovent NEB] 0.5 mg IH Q6HRT #100 nebu 03/03/18 Unknown Rx Levalbuterol [Xopenex] 0.63 mg IH PRN PRN #60 nebu 03/03/18 Unknown Rx Montelukast [Singulair] 10 mg PO QHS #30 tablet 03/03/18 Unknown Rx guaiFENesin DM [Guaifenesin Dm 10 ml PO Q8H #200 oral.liqd 03/03/18 Unknown Rx Syrup] predniSONE [Deltasone] 10 mg PO .TAPER #21 tab 03/03/18 Unknown Rx Albuterol INH(or & Nicu Only) 2 puff IH QID PRN #1 inhalation 04/29/18 Unknown Rx [ProAir HFA Inhaler] Azithromycin 250 mg PO DAILY #6 tablet 04/29/18 Unknown Rx Benzonatate [Tessalon Perle] 100 mg PO TID PRN #30 capsule 04/29/18 Unknown Rx Ibuprofen [Ibuprofen 800] 800 mg PO TID PRN #30 tablet 04/29/18 Unknown Rx predniSONE [Deltasone] 40 mg PO QDAY #10 tab 04/29/18 Unknown Rx ALBUTEROL NEB's [Proventil 0.083% 2.5 mg IH TID PRN #1 neb 07/22/18 Unknown Rx NEBS] Albuterol INH(or & Nicu Only) 1 puff IH Q4-6H PRN #1 inha 07/22/18 Unknown Rx [ProAir HFA Inhaler] Fluticasone (Nf) [Flovent Hfa(Nf)] 2 puff IH BID #1 puff 07/22/18 Unknown Rx Montelukast [Singulair] 10 mg PO QPM #30 tablet 07/22/18 Unknown Rx predniSONE [Deltasone] 50 mg PO QDAY #5 tab 07/22/18 Unknown Rx ALBUTEROL Inhaler(NF) [VENTOLIN 1 puff IH Q4-6H PRN #1 inha 09/15/18 Unknown Rx Inhaler(NF)] Prednisone [predniSONE 10 mg 10 mg PO .TAPER #1 tab.ds.pk 09/15/18 Unknown Rx (6-Day Pack, 21 Tabs)] Albuterol INH(or & Nicu Only) 1 puff IH Q4-6H PRN #1 inha 10/06/18 Unknown Rx [ProAir HFA Inhaler] Azithromycin [Zithromax] 500 mg PO QDAY #5 tablet 10/06/18 Unknown Rx Montelukast [Singulair] 10 mg PO QPM #14 tablet 10/06/18 Unknown Rx predniSONE [Deltasone] 50 mg PO QDAY #5 tab 10/06/18 Unknown Rx Albuterol INH(or & Nicu Only) 2 puff IH QID PRN #1 inhalation 05/24/19 Unknown Rx [ProAir HFA Inhaler] Prednisone [predniSONE 10 mg 10 mg PO .TAPER #1 tab.ds.pk 05/24/19 Unknown Rx (6-Day Pack, 21 Tabs)] Albuterol INH(or & Nicu Only) 2 puff IH QID PRN #1 inhalation 12/05/19 Unknown Rx [ProAir HFA Inhaler] predniSONE [Deltasone] 50 mg PO QDAY #5 tab 12/05/19 Unknown Rx ED Physical Exam - General Limitations: No Limitations General appearance: alert, in no apparent distress - Head Head exam: Present: atraumatic, normocephalic - Eye Eye exam: Present: normal appearance, PERRL, EOMI - ENT ENT exam: Present: normal exam, normal orophraynx, mucous membranes moist - Neck Neck exam: Present: normal inspection - Respiratory Respiratory exam: Present: normal lung sounds bilaterally, wheezes. Absent: respiratory distress, chest wall tenderness, accessory muscle use - Cardiovascular Cardiovascular Exam: Present: regular rate, normal rhythm. Absent: systolic murmur, diastolic murmur, rubs, gallop - GI/Abdominal GI/Abdominal exam: Present: soft, normal bowel sounds - Extremities Exam Extremities exam: Present: normal inspection - Back Exam Back exam: Present: normal inspection - Neurological Exam Neurological exam: Present: alert, oriented X3 - Psychiatric Psychiatric exam: Present: normal affect, normal mood - Skin Skin exam: Present: warm, dry, intact, normal color. Absent: rash ED Course Vital Signs 12/05/19 16:08 Pulse Rate [ 78 Right Lower Lobe] Pulse Rate [ 78 Right Middle Lobe] Respiratory 18 Rate [Right Lower Lobe] Respiratory 18 Rate [Right Middle Lobe] ED Medical Decision Making - Medical Decision Making 24-year-old female with history of asthma renal medications resulting in asthma exacerbation acute emerge department where she received treatment of acute asthma attack responded very well to therapy is resting comfortably ambulatory speaking in full sentences reports that her chest feels much much better. States that she still has Singulair at home although the other medications were refilled she will follow-up with her primary care provider for reevaluation and we also did discuss compliance with medication. No other symptoms to support viral syndrome were discovered on examination Critical care attestation.: If time is entered above; I have spent that time in minutes in the direct care of this critically ill patient, excluding procedure time. ED Disposition Clinical Impression: Asthma exacerbation, Wheezing Disposition: DC- TO HOME OR SELFCARE Is pt being admited?: No Does the pt Need Aspirin: No Condition: Stable Instructions: Asthma (ED) Prescriptions: predniSONE [Deltasone] 50 mg PO QDAY #5 tab Albuterol INH(or & Nicu Only) [ProAir HFA Inhaler] 2 puff IH QID PRN #1 inhalation PRN Reason: Shortness Of Breath Referrals: [facility] [Provider Group] - 3-5 Days
== END 2019-12-05 17:20 | disposition home or self-care (01) ==
LOC: ED 14:27
DX: J45.901 Unspecified asthma with (acute) exacerbation (principal); Z79.899 Other long term (current) drug therapy
CPT/HCPCS: 94640; 94644; 99282

== ENCOUNTER 2020-03-12 05:41 | Inpatient (IN) | payer SELFPAY ==
[2020-03-12] MEDS ORDERED: IPRATROPIUM 0.02% NEBU 2.5 ML IH ONE ×3 (05:50→12:15)
[2020-03-12] MEDS ORDERED: ALBUTEROL 2.5 MG/3 ML NEBU IH ONE ×4 (05:50→12:15)
[2020-03-12] MEDS ORDERED: dexAMETHasone 20 MG/5 ML VIAL IM ONE (06:06)
[2020-03-12] MEDS ORDERED: MAGNESIUM SULFATE 2 GM/50 ML BAG IV ONE (06:07)
[2020-03-12] MEDS ORDERED: dexAMETHasone 20 MG/5 ML VIAL IV ONE (06:08)
--- NOTE | 2020-03-12 08:28 | Emergency Department Report ---
ED Asthma HPI - General Chief Complaint: Adult Asthma Stated Complaint: ASTHMA Time Seen by Provider: 03/12/20 07:36 Source: patient Mode of arrival: Ambulatory Limitations: No Limitations - History of Present Illness Initial Comments: This is a 24-year-old female with a known history of asthma. She had an asthma flare yesterday and her inhalers are not relieving her symptoms her last asthma attack was in November. She denies any fever cough chest pain. C/o wheezing and SOB. 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 MD Complaint: "asthma attack" -: days(s) (1) Asthma History: childhood onset Severity: moderate Associated Symptoms: denies: productive cough, dry cough, fever, chest pain, syncope - Related Data Previous Rx's Medication Instructions Recorded Last Taken Type Arformoterol Nebu [Brovana Nebu] 15 mcg IH Q12HRT #60 ml 11/13/17 Unknown Rx Inhaler, Assist Devices [Space 1 each MC Q4H PRN #1 spacer 11/13/17 Unknown Rx Chamber Plus] Nebulizer [Aeroneb Go Nebulizer] 1 each MC Q4H PRN #1 each 11/13/17 02/28/18 22:00 Rx Montelukast [Singulair] 10 mg PO QHS #30 tablet 12/28/17 Unknown Rx Albuterol Sulfate [Proventil Hfa] 6.7 gm IH Q4H PRN #1 hfa.aer.ad 03/03/18 Unknown Rx Arformoterol Nebu [Brovana Nebu] 15 mcg IH Q12HRT #60 ml 03/03/18 Unknown Rx Azithromycin 250 mg PO DAILY #5 tablet 03/03/18 Unknown Rx Budesonide [Pulmicort Respules] 0.25 mg IH Q12HRT #60 nebu 03/03/18 Unknown Rx Fluticasone/Salmeterol [Advair 1 puff IH BID #1 disk.w.dev 03/03/18 Unknown Rx Diskus 250-50 mcg] Ipratropium [Atrovent NEB] 0.5 mg IH Q6HRT #100 nebu 03/03/18 Unknown Rx Levalbuterol [Xopenex] 0.63 mg IH PRN PRN #60 nebu 03/03/18 Unknown Rx Montelukast [Singulair] 10 mg PO QHS #30 tablet 03/03/18 Unknown Rx guaiFENesin DM [Guaifenesin Dm 10 ml PO Q8H #200 oral.liqd 03/03/18 Unknown Rx Syrup] predniSONE [Deltasone] 10 mg PO .TAPER #21 tab 03/03/18 Unknown Rx Albuterol INH(or & Nicu Only) 2 puff IH QID PRN #1 inhalation 04/29/18 Unknown Rx [ProAir HFA Inhaler] Azithromycin 250 mg PO DAILY #6 tablet 04/29/18 Unknown Rx Benzonatate [Tessalon Perle] 100 mg PO TID PRN #30 capsule 04/29/18 Unknown Rx Ibuprofen [Ibuprofen 800] 800 mg PO TID PRN #30 tablet 04/29/18 Unknown Rx predniSONE [Deltasone] 40 mg PO QDAY #10 tab 04/29/18 Unknown Rx ALBUTEROL NEB's [Proventil 0.083% 2.5 mg IH TID PRN #1 neb 07/22/18 Unknown Rx NEBS] Albuterol INH(or & Nicu Only) 1 puff IH Q4-6H PRN #1 inha 07/22/18 Unknown Rx [ProAir HFA Inhaler] Fluticasone (Nf) [Flovent Hfa(Nf)] 2 puff IH BID #1 puff 07/22/18 Unknown Rx Montelukast [Singulair] 10 mg PO QPM #30 tablet 07/22/18 Unknown Rx predniSONE [Deltasone] 50 mg PO QDAY #5 tab 07/22/18 Unknown Rx ALBUTEROL Inhaler(NF) [VENTOLIN 1 puff IH Q4-6H PRN #1 inha 09/15/18 Unknown Rx Inhaler(NF)] Prednisone [predniSONE 10 mg 10 mg PO .TAPER #1 tab.ds.pk 09/15/18 Unknown Rx (6-Day Pack, 21 Tabs)] Albuterol INH(or & Nicu Only) 1 puff IH Q4-6H PRN #1 inha 10/06/18 Unknown Rx [ProAir HFA Inhaler] Azithromycin [Zithromax] 500 mg PO QDAY #5 tablet 10/06/18 Unknown Rx Montelukast [Singulair] 10 mg PO QPM #14 tablet 10/06/18 Unknown Rx predniSONE [Deltasone] 50 mg PO QDAY #5 tab 10/06/18 Unknown Rx Albuterol INH(or & Nicu Only) 2 puff IH QID PRN #1 inhalation 05/24/19 Unknown Rx [ProAir HFA Inhaler] Prednisone [predniSONE 10 mg 10 mg PO .TAPER #1 tab.ds.pk 05/24/19 Unknown Rx (6-Day Pack, 21 Tabs)] Albuterol INH(or & Nicu Only) 2 puff IH QID PRN #1 inhalation 12/05/19 Unknown Rx [ProAir HFA Inhaler] predniSONE [Deltasone] 50 mg PO QDAY #5 tab 12/05/19 Unknown Rx Allergies Allergy/AdvReac Type Severity Reaction Status Date / Time No Known Allergies Allergy Verified 10/03/17 09:27 ED Review of Systems ROS: Stated complaint: ASTHMA Other details as noted in HPI ED Past Medical Hx - Past Medical History Previous Medical History?: Yes Hx Asthma: Yes Additional medical history: Vaginal delivery 12-06-2015 - Surgical History Past Surgical History?: No - Social History Smoking Status: Never Smoker Substance Use Type: None - Medications Home Medications: Home Medications Medication Instructions Recorded Confirmed Last Taken Type Arformoterol Nebu [Brovana Nebu] 15 mcg IH Q12HRT #60 ml 11/13/17 03/02/18 Un known Rx Inhaler, Assist Devices [Space 1 each MC Q4H PRN #1 spacer 11/13/17 03/12/20 Unknown Rx Chamber Plus] Nebulizer [Aeroneb Go Nebulizer] 1 each MC Q4H PRN #1 each 11/13/17 03/12/20 22:00 Rx Montelukast [Singulair] 10 mg PO QHS #30 tablet 12/28/17 03/12/20 Unknown Rx Albuterol Sulfate [Proventil Hfa] 6.7 gm IH Q4H PRN #1 hfa.aer.ad 03/03/18 03/12/20 Unknown Rx Arformoterol Nebu [Brovana Nebu] 15 mcg IH Q12HRT #60 ml 03/03/18 Unknown Rx Azithromycin 250 mg PO DAILY #5 tablet 03/03/18 Unknown Rx Budesonide [Pulmicort Respules] 0.25 mg IH Q12HRT #60 nebu 03/03/18 Unknown Rx Fluticasone/Salmeterol [Advair 1 puff IH BID #1 disk.w.dev 03/03/18 Unknown Rx Diskus 250-50 mcg] Ipratropium [Atrovent NEB] 0.5 mg IH Q6HRT #100 nebu 03/03/18 03/12/20 Unknown Rx Levalbuterol [Xopenex] 0.63 mg IH PRN PRN #60 nebu 03/03/18 Unknown Rx Montelukast [Singulair] 10 mg PO QHS #30 tablet 03/03/18 03/12/20 Unknown Rx guaiFENesin DM [Guaifenesin Dm 10 ml PO Q8H #200 oral.liqd 03/03/18 Unknown Rx Syrup] predniSONE [Deltasone] 10 mg PO .TAPER #21 tab 03/03/18 03/12/20 Unknown Rx Albuterol INH(or & Nicu Only) 2 puff IH QID PRN #1 inhalation 04/29/18 03/12/20 Unknown Rx [ProAir HFA Inhaler] Azithromycin 250 mg PO DAILY #6 tablet 04/29/18 Unknown Rx Benzonatate [Tessalon Perle] 100 mg PO TID PRN #30 capsule 04/29/18 Unknown Rx Ibuprofen [Ibuprofen 800] 800 mg PO TID PRN #30 tablet 04/29/18 Unknown Rx predniSONE [Deltasone] 40 mg PO QDAY #10 tab 04/29/18 03/12/20 Unknown Rx ALBUTEROL NEB's [Proventil 0.083% 2.5 mg IH TID PRN #1 neb 07/22/18 03/12/20 Unknown Rx NEBS] Albuterol INH(or & Nicu Only) 1 puff IH Q4-6H PRN #1 inha 07/22/18 03/12/20 Unknown Rx [ProAir HFA Inhaler] Fluticasone (Nf) [Flovent Hfa(Nf)] 2 puff IH BID #1 puff 07/22/18 Unknown Rx Montelukast [Singulair] 10 mg PO QPM #30 tablet 07/22/18 03/12/20 Unknown Rx predniSONE [Deltasone] 50 mg PO QDAY #5 tab 07/22/18 03/12/20 Unknown Rx ALBUTEROL Inhaler(NF) [VENTOLIN 1 puff IH Q4-6H PRN #1 inha 09/15/18 03/12/20 Unknown Rx Inhaler(NF)] Prednisone [predniSONE 10 mg 10 mg PO .TAPER #1 tab.ds.pk 09/15/18 03/12/20 Unknown Rx (6-Day Pack, 21 Tabs)] Albuterol INH(or & Nicu Only) 1 puff IH Q4-6H PRN #1 inha 10/06/18 03/12/20 Unknown Rx [ProAir HFA Inhaler] Azithromycin [Zithromax] 500 mg PO QDAY #5 tablet 10/06/18 Unknown Rx Montelukast [Singulair] 10 mg PO QPM #14 tablet 10/06/18 03/12/20 Unknown Rx predniSONE [Deltasone] 50 mg PO QDAY #5 tab 10/06/18 03/12/20 Unknown Rx Albuterol INH(or & Nicu Only) 2 puff IH QID PRN #1 inhalation 05/24/19 03/12/20 Unknown Rx [ProAir HFA Inhaler] Prednisone [predniSONE 10 mg 10 mg PO .TAPER #1 tab.ds.pk 05/24/19 03/12/20 Unknown Rx (6-Day Pack, 21 Tabs)] Albuterol INH(or & Nicu Only) 2 puff IH QID PRN #1 inhalation 12/05/19 03/12/20 Unknown Rx [ProAir HFA Inhaler] predniSONE [Deltasone] 50 mg PO QDAY #5 tab 12/05/19 03/12/20 Unknown Rx ED Physical Exam - General Limitations: No Limitations ED Course Vital Signs 03/12/20 03/12/20 03/12/20 05:46 05:58 07:37 Temperature 98.0 F Pulse Rate 107 H 103 H Pulse Rate [ 100 H Bilateral Throughout] Respiratory 20 Rate Respiratory 18 Rate [Bilateral Throughout] Blood Pressure 146/87 136/66 O2 Sat by Pulse 94 100 Oximetry 03/12/20 03/12/20 03/12/20 09:49 10:58 14:06 Temperature 98.4 F Pulse Rate 106 H Pulse Rate [ 105 H 113 H Bilateral Throughout] Respiratory 18 Rate Respiratory 24 22 Rate [Bilateral Throughout] Blood Pressure 123/77 O2 Sat by Pulse 100 Oximetry - Reevaluation(s) Reevaluation #1: 03/12/20 12:20 I discussed patient with Dr. Hurtado., Dr. Hurtado at bedside to examine patient. Paitient with inspiratory and expiratory wheezing O2 sats 94 on room air heart rate 113. Hospitalist called at [phone] to assess patient for admission ED Medical Decision Making - Lab Data Result diagrams: 03/12/20 12:48 03/12/20 12:48 Critical care attestation.: If time is entered above; I have spent that time in minutes in the direct care of this critically ill patient, excluding procedure time. ED Disposition Clinical Impression: Acute asthma exacerbation Qualifiers: Asthma severity: moderate Asthma persistence: persistent Qualified Code(s): J45.41 - Moderate persistent asthma with (acute) exacerbation Disposition: 09 OP ADMIT IP TO THIS HOSP Is pt being admited?: Yes Does the pt Need Aspirin: No Condition: Fair
[2020-03-12] MEDS ORDERED: IPRATROPIUM/ALBUTEROL SULFATE 3 ML AMPUL.NEB IH ONE (08:30)
--- NOTE | 2020-03-12 09:11 | XRay Report ---
CHEST 1 VIEW [id number] INDICATION / CLINICAL INFORMATION: asthma. COMPARISON: 10/06/2018 FINDINGS: SUPPORT DEVICES: Stable HEART / MEDIASTINUM: Stable LUNGS / PLEURA: Mild chronic changes are again seen. No obvious acute infiltrates are noted. No pneum othorax. ADDITIONAL FINDINGS: No significant additional findings. IMPRESSION: No significant changes Signer Name: Flip Ramsey MD Signed: 03/12/2020 9:06 AM Workstation Name: [id number]
[2020-03-12] MEDS ORDERED: methylPREDNISolone Sod Succinate 125 MG/2 ML INJ IV ONE (10:48)
[2020-03-12] MEDS ORDERED: SODIUM CHLORIDE 0.9% 1000 ML 1,000 ML IV ONE (12:15)
--- NOTE | 2020-03-12 12:18 | Event Note ---
Face to Face: For this encounter I have reviewed the PA/PROTOTYPE CARPENTER documentation, treatment plan, medical decision making, and I had face to face time with this patient. I evaluated Ms. Camara. She has a history of severe persistent asthma. In spite optimal emergency department treatment she has inspiratory expiratory wheezing with moderate air movement. She has mild hypoxia with 94% oxygen saturation. I recommended admission to the hospitalist service.
[2020-03-12] MEDS: ARFORMOTEROL 15 MCG/2 ML NEBU IH SCH ×2 (12:26→20:33)
[2020-03-12] MEDS ORDERED: ACETAMINOPHEN 325 MG TAB PO PRN (12:26)
[2020-03-12] MEDS ORDERED: ALBUTEROL 2.5 MG/3 ML NEBU IH PRN (12:26)
[2020-03-12] MEDS ORDERED: ONDANSETRON 4 MG/2 ML INJ IV PRN (12:26)
[2020-03-12] MEDS: BUDESONIDE 0.5 MG/2 ML NEBU IH SCH ×2 (12:30→20:33)
--- NOTE | 2020-03-12 12:30 | History and Physical Report ---
History of Present Illness Date of examination: 03/12/20 Date of admission: 03/12/20 Chief complaint: Shortness of breath with active exacerbation History of present illness: Patient is a 24-year-old female with known history of asthma last admission here was in 2018 although has had other episodes of admission to the hospital since then presents to the ED with complaints of acute asthma exacerbation not being relieved by her inhalers. Unfortunately she does not have a primary care physician and has not followed up with any neurodiagnostic technician. 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 Her last flareup was in November. On arrival to the ER she was noted to have persistent inspiratory and expiratory wheezing with accessory muscle despite multiple duo nebs and magnesium and steroid treatment she only improved mildly necessitating the request for admission. She denies any recent contact with any coronavirus patient. She denies any fever nausea vomiting or diarrhea. Review of system except as in HPI 14 point system has been reviewed with the patient otherwise negative Past History Past Medical History: other (Vaginal ) Past Surgical History: No surgical history Social history: no significant social history, full code. denies: smoking, alcohol abuse, prescription drug abuse, IV drug use Medications and Allergies Allergies Allergy/AdvReac Type Severity Reaction Status Date / Time No Known Allergies Allergy Verified 10/03/17 09:27 Home Medications Medication Instructions Recorded Confirmed Last Taken Type Arformoterol Nebu [Brovana Nebu] 15 mcg IH Q12HRT #60 ml 11/13/17 03/12/20 Unkno wn Rx Inhaler, Assist Devices [Space 1 each MC Q4H PRN #1 spacer 11/13/17 03/12/20 Unknown Rx Chamber Plus] Nebulizer [Aeroneb Go Nebulizer] 1 each MC Q4H PRN #1 each 11/13/17 03/12/20 02/28/18 22:00 Rx Montelukast [Singulair] 10 mg PO QHS #30 tablet 12/28/17 03/12/20 Unknown Rx Albuterol Sulfate [Proventil Hfa] 6.7 gm IH Q4H PRN #1 hfa.aer.ad 03/03/18 03/12/20 Unknown Rx Arformoterol Nebu [Brovana Nebu] 15 mcg IH Q12HRT #60 ml 03/03/18 03/12/20 Unknown Rx Budesonide [Pulmicort Respules] 0.25 mg IH Q12HRT #60 nebu 03/03/18 03/12/20 Unknown Rx Fluticasone/Salmeterol [Advair 1 puff IH BID #1 disk.w.dev 03/03/18 03/12/20 Unknown Rx Diskus 250-50 mcg] Ipratropium [Atrovent NEB] 0.5 mg IH Q6HRT #100 nebu 03/03/18 03/12/20 Unknown Rx Levalbuterol [Xopenex] 0.63 mg IH PRN PRN #60 nebu 03/03/18 03/12/20 Unknown Rx Montelukast [Singulair] 10 mg PO QHS #30 tablet 03/03/18 03/12/20 Unknown Rx guaiFENesin DM [Guaifenesin Dm 10 ml PO Q8H #200 oral.liqd 03/03/18 03/12/20 Unknown Rx Syrup] predniSONE [Deltasone] 10 mg PO .TAPER #21 tab 03/03/18 03/12/20 Unknown Rx Albuterol INH(or & Nicu Only) 2 puff IH QID PRN #1 inhalation 04/29/18 03/12/20 Unknown Rx [ProAir HFA Inhaler] Azithromycin 250 mg PO DAILY #6 tablet 04/29/18 03/12/20 Unknown Rx Benzonatate [Tessalon Perle] 100 mg PO TID PRN #30 capsule 04/29/18 03/12/20 Unknown Rx Ibuprofen [Ibuprofen 800] 800 mg PO TID PRN #30 tablet 04/29/18 03/12/20 Unknown Rx predniSONE [Deltasone] 40 mg PO QDAY #10 tab 04/29/18 03/12/20 Unknown Rx ALBUTEROL NEB's [Proventil 0.083% 2.5 mg IH TID PRN #1 neb 07/22/18 03/12/20 Unknown Rx NEBS] Albuterol INH(or & Nicu Only) 1 puff IH Q4-6H PRN #1 inha 07/22/18 03/12/20 Unknown Rx [ProAir HFA Inhaler] Fluticasone (Nf) [Flovent Hfa(Nf)] 2 puff IH BID #1 puff 07/22/18 03/12/20 Unknown Rx Montelukast [Singulair] 10 mg PO QPM #30 tablet 07/22/18 03/12/20 Unknown Rx predniSONE [Deltasone] 50 mg PO QDAY #5 tab 07/22/18 03/12/20 Unknown Rx ALBUTEROL Inhaler(NF) [VENTOLIN 1 puff IH Q4-6H PRN #1 inha 09/15/18 03/12/20 Unknown Rx Inhaler(NF)] Prednisone [predniSONE 10 mg 10 mg PO .TAPER #1 tab.ds.pk 09/15/18 03/12/20 Un known Rx (6-Day Pack, 21 Tabs)] Albuterol INH(or & Nicu Only) 1 puff IH Q4-6H PRN #1 inha 10/06/18 03/12/20 Unknown Rx [ProAir HFA Inhaler] Azithromycin [Zithromax] 500 mg PO QDAY #5 tablet 10/06/18 03/12/20 Unknown Rx Montelukast [Singulair] 10 mg PO QPM #14 tablet 10/06/18 03/12/20 Unknown Rx predniSONE [Deltasone] 50 mg PO QDAY #5 tab 10/06/18 03/12/20 Unknown Rx Albuterol INH(or & Nicu Only) 2 puff IH QID PRN #1 inhalation 05/24/19 03/12/20 Unknown Rx [ProAir HFA Inhaler] Prednisone [predniSONE 10 mg 10 mg PO .TAPER #1 tab.ds.pk 05/24/19 03/12/20 Unknown Rx (6-Day Pack, 21 Tabs)] Albuterol INH(or & Nicu Only) 2 puff IH QID PRN #1 inhalation 12/05/19 03/12/20 Unknown Rx [ProAir HFA Inhaler] predniSONE [Deltasone] 50 mg PO QDAY #5 tab 12/05/19 03/12/20 Unknown Rx Active Meds: Active Medications Acetaminophen (Tylenol) 650 mg PO Q4H PRN PRN Reason: Pain MILD(1-3)/Fever >100.5/SPARKS Albuterol (Proventil) 2.5 mg IH Q4HRT PRN PRN Reason: Shortness Of Breath Albuterol/Ipratropium (Duoneb *Not For Prn Use*) 1 ampul IH Q6HRT [facility] Arformoterol Tartrate (Brovana Nebu) 15 mcg IH Q12HRT [facility] Budesonide (Pulmicort) 0.5 mg IH Q12HRT [facility] Sodium Chloride (Nacl 0.9% 1000 Ml) 1,000 mls @ 999 mls/hr IV BOLUS ONE Stop: 03/12/20 13:15 Methylprednisolone Sodium Succinate (Solu-Medrol) 60 mg IV Q6HR [facility] Ondansetron HCl (Zofran) 4 mg IV Q4H PRN PRN Reason: Nausea And Vomiting Sodium Chloride (Sodium Chloride Flush Syringe 10 Ml) 10 ml IV BID [facility] Sodium Chloride (Sodium Chloride Flush Syringe 10 Ml) 10 ml IV PRN PRN PRN Reason: LINE FLUSH Exam - Physical Exam Narrative exam: VITAL SIGNS: Reviewed. GENERAL: The patient appears normally developed, Vital signs as documented. HEAD: No signs of head trauma. EYES: Pupils are equal. Extraocular motions intact. EARS: Hearing grossly intact. MOUTH: Oropharynx is normal. NECK: No adenopathy, no JVD. CHEST: Chest with expiratory and inspiratory wheezing breath sounds bilatera lly. No rales, or rhonchi. CARDIAC: Regular rate and rhythm. S1 and S2, without murmurs, gallops, or rubs. VASCULAR: No Edema. Peripheral pulses normal and equal in all extremities. ABDOMEN: Soft, non tender and non distended. No rebound or guarding, and no masses palpated. Bowel Sounds normal. MUSCULOSKELETAL: Good range of motion of all major joints. Extremities without clubbing, cyanosis or edema. NEUROLOGIC EXAM: Alert and oriented x 3 No focal sensory or strength deficits . Speech normal. Follows commands. PSYCHIATRIC: Mood normal. SKIN: detial exam as documented in skin assessment - Constitutional Vitals: Temp Pulse Resp BP Pulse Ox 98.4 F 106 H 18 123/77 100 03/12/20 10:58 03/12/20 10:58 03/12/20 10:58 03/12/20 10:58 03/12/20 10:58 Results - Labs CBC & Chem 7: 03/12/20 12:48 03/12/20 12:48 - Imaging and Cardiology Chest x-ray: image reviewed (No acute pathology) Assessment and Plan Assessment and plan: 24-year-old female with history of asthma presenting with shortness of breath x1 day or relieving with inhalers and multiple ER treatments. Asthma with acute exacerbation * Admit to telemetry * Consult pulmonology * Start on duo nebs, LABA, PAULA * Start Emperic abx * Start steroids * Continuous pulse ox * DVT/GI prophy Advance Directives: Yes Plan of care discussed with patient/family: Yes
[2020-03-12] MEDS ORDERED: SODIUM CHLORIDE 0.9% 1000 ML 1,000 ML ONE (13:03)
[2020-03-12 13:15] LABS: Hematocrit 36.9 % (30.3-42.9); Hemoglobin 11.5 gm/dl (10.1-14.3); Mean Corpuscular HGB Conc 31 % (30-34); Platelet Count 261 K/mm3 (140-440); Red Blood Count 5.34 M/mm3 (3.65-5.03)
[2020-03-12 13:17] LABS: Mean Corpuscular Volume 69 fl (79-97); Red Cell Distribution Width 22.4 % (13.2-15.2)
[2020-03-12 13:26] LABS: BUN/Creatinine Ratio 12; Blood Urea Nitrogen 6 mg/dL (7-17); Calcium 9.1 mg/dL (8.4-10.2); Hemolysis Index 12
[2020-03-12] MEDS: methylPREDNISolone Sod Succinate 125 MG/2 ML INJ IV SCH ×2 (14:37→20:53)
[2020-03-12 14:58] LABS: Eosinophils % (Manual) 0 % (0.0-4.3); Hypochromasia 2+; Monocytes % (Manual) 0 % (0.0-7.3); Total Cells Counted 100
[2020-03-12 14:59] LABS: Anisocytosis 1+; Ovalocytes Few; Platelet Estimate Consistent w Auto
[2020-03-12] MEDS: IPRATROPIUM/ALBUTEROL SULFATE 3 ML AMPUL.NEB IH SCH ×2 (20:28→20:33)
--- NOTE | 2020-03-12 21:47 | Event Note ---
Date: 03/12/20 24 year old with AE-asthma. Pulmonary consult ordered. Patient is on bronchodilators, steroids Full consult to follow
[2020-03-13] MEDS: methylPREDNISolone Sod Succinate 125 MG/2 ML INJ IV SCH ×2 (00:10→06:07)
[2020-03-13] MEDS: IPRATROPIUM/ALBUTEROL SULFATE 3 ML AMPUL.NEB IH SCH ×2 (02:40→09:21)
[2020-03-13 04:53] VITALS: BP 132/88
[2020-03-13] MEDS: ARFORMOTEROL 15 MCG/2 ML NEBU IH SCH (09:21)
[2020-03-13] MEDS: BUDESONIDE 0.5 MG/2 ML NEBU IH SCH (09:21)
--- NOTE | 2020-03-13 11:46 | Consultation ---
History of Present Illness Consult date: 03/13/20 Requesting physician: RAYNE DE PAZ Reason for consult: asthma History of present illness: Patient is a 24-year-old female with known history of asthma last admission here was in 2018 although has had other episodes of admission to the hospital since then presents to the ED with complaints of acute asthma exacerbation not being relieved by her inhalers. Unfortunately she does not have a primary care physician and has not followed up with any air tool operator. 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 Her last flareup was in November. On arrival to the ER she was noted to have persistent inspiratory and expiratory wheezing with acces johnathan muscle despite multiple duo nebs and magnesium and steroid treatment she only improved mildly necessitating the request for admission. She denies any recent contact with any coronavirus patient. She denies any fever nausea vomiting or diarrhea. I have been consulted fro acute asthma exacerbation. Patient was seen and examined. Vitals, labs, medications, chart and imaging reviewed. She feels better- has been on Singulair and prn albuterol At work the heat and smoke makes it difficult to breathe Review of system except as in HPI 14 point system has been reviewed with the patient otherwise negative Past History Past Medical History: other (Vaginal ) Past Surgical History: No surgical history Social history: no significant social history, full code. denies: smoking, alcohol abuse, prescription drug abuse, IV drug use Medications and Allergies Allergies Allergy/AdvReac Type Severity Reaction Status Date / Time No Known Allergies Allergy Verified 10/03/17 09:27 Home Medications Medication Instructions Recorded Confirmed Last Taken Type Inhaler, Assist Devices [Space 1 each MC Q4H PRN #1 spacer 11/13/17 03/12/20 Unknown Rx Chamber Plus] Benzonatate [Tessalon Perle] 100 mg PO TID PRN #30 capsule 04/29/18 03/12/20 Unknown Rx ALBUTEROL Inhaler(NF) [VENTOLIN 1 puff IH Q4-6H PRN #1 inha 09/15/18 03/12/20 Unknown Rx Inhaler(NF)] Albuterol INH(or & Nicu Only) 1 puff IH Q4-6H PRN #1 inha 03/13/20 Unknown Rx [ProAir HFA Inhaler] Azithromycin [Zithromax TAB] 500 mg PO QDAY #3 tablet 03/13/20 Unknown Rx Fluticasone (Nf) [Flovent 44 2 puff IH BID #1 puff 03/13/20 Unknown Rx MCG/PUFF HFA] Fluticasone/Salmeterol [Advair 1 puff IH BID #1 disk.w.dev 03/13/20 Unknown Rx Diskus 250-50 mcg] Ipratropium/Albuterol Sulfate 1 ampul IH Q6HRT #120 ampul.neb 03/13/20 Unknown Rx [DUONEB *Not for PRN Use*] Montelukast [Singulair] 10 mg PO QHS #30 tablet 03/13/20 Unknown Rx Nebulizer [Aeroneb Go Nebulizer] 1 each MC Q4H PRN #1 each 03/13/20 Unknown Rx Nebulizer [Compact Compressor 1 each MC TID #1 each 03/13/20 Unknown Rx Nebulizer] Prednisone [predniSONE 10 mg 10 mg PO .TAPER #1 tab.ds.pk 03/13/20 Unknown Rx (6-Day Pack, 21 Tabs)] Active Meds: Active Medications Acetaminophen (Tylenol) 650 mg PO Q4H PRN PRN Reason: Pain MILD(1-3)/Fever >100.5/SPARKS Last Admin: 03/12/20 17:44 Dose: 650 mg Documented by: Albuterol (Proventil) 2.5 mg IH Q4HRT PRN PRN Reason: Shortness Of Breath Albuterol/Ipratropium (Duoneb *Not For Prn Use*) 1 ampul IH Q6HRT [facility] Last Admin: 03/13/20 09:21 Dose: 1 ampul Documented by: Arformoterol Tartrate (Brovana Nebu) 15 mcg IH Q12HRT [facility] Last Admin: 03/13/20 09:21 Dose: 15 mcg Documented by: Budesonide (Pulmicort) 0.5 mg IH Q12HRT [facility] Last Admin: 03/13/20 09:21 Dose: 0.5 mg Documented by: Methylprednisolone Sodium Succinate (Solu-Medrol) 60 mg IV Q6HR [facility] Last Admin: 03/13/20 06:07 Dose: 60 mg Documented by: Ondansetron HCl (Zofran) 4 mg IV Q4H PRN PRN Reason: Nausea And Vomiting Sodium Chloride (Sodium Chloride Flush Syringe 10 Ml) 10 ml IV BID [facility] Last Admin: 03/13/20 10:40 Dose: 10 ml Documented by: Sodium Chloride (Sodium Chloride Flush Syringe 10 Ml) 10 ml IV PRN PRN PRN Reason: LINE FLUSH Review of Systems All systems: negative Physical Examination Vital signs: Vital Signs Temp Pulse Resp BP Pulse Ox 98.0 F 107 H 20 146/87 94 03/12/20 05:46 03/12/20 05:46 03/12/20 05:46 03/12/20 05:46 03/12/20 05:46 VITAL SIGNS: Reviewed. GENERAL: The patient appears normally developed, not in any distress, Vital signs as documented. HEAD: No signs of head trauma. EYES: Pupils are equal. Extraocular motions intact. EARS: Hearing grossly intact. MOUTH: Oropharynx is normal. NECK: No adenopathy, no JVD. CHEST: Chest with expiratory wheezing bilaterally.No rales, or rhonchi. CARDIAC: Regular rate and rhythm. S1 and S2, without murmurs, gallops, or rubs. VASCULAR: No Edema. Peripheral pulses normal and equal in all extremities. ABDOMEN: Soft, non tender and non distended. No rebound or guarding, and no masses palpated. Bowel Sounds normal. MUSCULOSKELETAL: Good range of motion of all major joints. Extremities without clubbing, cyanosis or edema. NEUROLOGIC EXAM: Alert and oriented x 3 No focal sensory or strength deficits. Speech normal. Follows commands. PSYCHIATRIC: Mood normal. Results - Laboratory Findings CBC and BMP: 03/12/20 12:48 03/12/20 12:48 Abnormal lab findings: Abnormal Labs 03/12/20 03/12/20 12:48 12:48 RBC 5.34 H MCV 69 L MCH 22 L RDW 22.4 H Seg Neuts % (Manual) 95.0 H Lymphocytes % (Manual) 3.0 L Lymphocytes # (Manual) 0.2 L Carbon Dioxide 19 L BUN 6 L Creatinine 0.5 L Glucose 200 H Assessment and Plan 24-year-old female with history of asthma presenting with shortness of breath x1 day or relieving with inhalers and multiple ER treatments. Asthma with acute exacerbation -Bronchodilators -Supplemental oxygen as needed to keep O2 sats >90% -Steroids with taper -Accucheck with glycemic control while on steroids -Leukotriene receptor antagonists -Asthma action plan discussed, avoidance of triggers -VTE prophylaxis -Needs LABA/ICS for better control of symptoms -Follow up as outpatient for better control of asthma and for ongoing asthma educations -Use of protective face masks as indicated at work to reduce exposure of freya rgens -Discharge planning per primary. Discussed with patient and with hospitalist service Thank you for the consult
--- NOTE | 2020-03-13 12:07 | Discharge Summary ---
Providers - Providers Date of Admission: 03/12/20 12:26 Attending physician: RAYNE DE PAZ MD 03/12/20 12:26 Consult to Physician [CONS] Routine Comment: Consulting Provider: GÓMEZ ACEVEDO Physician Instructions: Reason For Exam: asthma exacerbation Primary care physician: TRANSMISSION BUILDER Hospitalization Reason for admission: Asthma exacerbation Condition: Stable Hospital course: Patient is a 24-year-old female with known history of asthma last admission here was in 2018 although has had other episodes of admission to the hospital since then presents to the ED with complaints of acute asthma exacerbation not being relieved by her inhalers. Unfortunately she does not have a primary care physician and has not followed up with any steersman. 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 Her last flareup was in November. On arrival to the ER she was noted to have persistent inspiratory and expiratory wheezing with accessory muscle despite multiple duo nebs and magnesium and steroid treatment she only improved mildly necessitating the request for admission. She denies any recent contact with any coronavirus patient. She denies any fever nausea vomiting or diarrhea. Patient was seen and evaluated by steersman with the following recommendation -Bronchodilators -Supplemental oxygen as needed to keep O2 sats >90% -Steroids with taper -Accucheck with glycemic control while on steroids -Leukotriene receptor antagonists -Asthma action plan discussed, avoidance of triggers -VTE prophylaxis -Needs LABA/ICS for better control of symptoms -Follow up as outpatient for better control of asthma and for ongoing asthma educations -Use of protective face masks as indicated at work to reduce exposure of allergens She is clinically stable for discharge at this time we did discuss all the findings as noted above. Also recommended that she follows up with the steersman. Also discussed peak flow meters with her. Clinical stable at this time Asthma with acute exacerbation Disposition: DC-01 TO HOME OR SELFCARE Time spent for discharge: 35 minutes Core Measure Documentation - Palliative Care Palliative Care/ Comfort Measures: Not Applicable - Core Measures Any of the following diagnoses?: none Exam - Physical Exam Narrative exam: VITAL SIGNS: Reviewed. GENERAL: The patient appears normally developed, Vital signs as documented. HEAD: No signs of head trauma. EYES: Pupils are equal. Extraocular motions intact. EARS: Hearing grossly intact. MOUTH: Oropharynx is normal. NECK: No adenopathy, no JVD. CHEST: Chest with mild expiratory wheezing breath sounds bilaterally. No ra les, or rhonchi. CARDIAC: Regular rate and rhythm. S1 and S2, without murmurs, gallops, or rubs. VASCULAR: No Edema. Peripheral pulses normal and equal in all extremities. ABDOMEN: Soft, non tender and non distended. No rebound or guarding, and no masses palpated. Bowel Sounds normal. MUSCULOSKELETAL: Good range of motion of all major joints. Extremities without clubbing, cyanosis or edema. NEUROLOGIC EXAM: Alert and oriented x 3 No focal sensory or strength deficits. Speech normal. Follows commands. PSYCHIATRIC: Mood normal. SKIN: detial exam as documented in skin assessment - Constitutional Vitals: Temp Pulse Resp BP Pulse Ox 98.3 F 95 H 18 132/88 97 03/13/20 04:51 03/13/20 04:51 03/13/20 04:51 03/13/20 04:51 03/13/20 04:51 Plan Activity: advance as tolerated, fall precautions Diet: low fat Special Instructions: record daily weights Follow up with: PRIMARY CAREMD [Primary Care Provider] - 3-5 Days GÓMEZ ACEVEDO MD [Staff Physician] - 3 Days Forms: Discharge Signature Page Prescriptions: Montelukast [Singulair] 10 mg PO QHS #30 tablet Fluticasone/Salmeterol [Advair Diskus 250-50 mcg] 1 puff IH BID #1 disk.w.dev Nebulizer [Aeroneb Go Nebulizer] 1 each MC Q4H PRN #1 each PRN Reason: Shortness Of Breath Nebulizer [Compact Compressor Nebulizer] 1 each MC TID #1 each Ipratropium/Albuterol Sulfate [DUONEB *Not for PRN Use*] 1 ampul IH Q6HRT #120 ampul.neb Fluticasone (Nf) [Flovent 44 MCG/PUFF HFA] 2 puff IH BID #1 puff Prednisone [predniSONE 10 mg (6-Day Pack, 21 Tabs)] 10 mg PO .TAPER #1 tab.ds.pk Albuterol INH(or & Nicu Only) [ProAir HFA Inhaler] 1 puff IH Q4-6H PRN #1 inha PRN Reason: Cough Azithromycin [Zithromax TAB] 500 mg PO QDAY #3 tablet
== END 2020-03-13 12:58 | disposition home or self-care (01) | DRG 203 ==
LOC: ED 05:41 → 4A 12:26
PROVIDERS: ADMIT Internal Medicine; ATTEND Internal Medicine
DX: J45.901 Unspecified asthma with (acute) exacerbation (principal); Z79.899 Other long term (current) drug therapy
CPT/HCPCS: 36415; 71046; 80048; 85007; 85025; 94640; 94644; G0378; J1100; J2930; J3475; J7030